=== PATIENT | male | born 1960 | race Caucasian/White ===

== ENCOUNTER 2018-05-16 21:45 | Emergency (ER) | payer MEDICARE, MEDICAID ==
[~2018-05-16 21:45] MED LIST: ALBU8.5H IH; ARI2 PO; ATOM40CA7 PO; AZIT-18 PO; CEFD300C35 PO; CIPR-344 PO; CLIN-75 PO; CLIN300C99 PO; CLON0.5T66 PO; CLOT15CR62 TP; CYCL10TA29 PO; DIVA500T98 PO; DOCU-416 PO; FENO160T11 PO; FOLI-68 PO; HYDR-4309 PO; INSU100C12 SQ; INSU100I30 SQ; INSU100V24 SQ; INSU100V28 SQ; INSU300I SQ; LACT1CAP6 PO; LISI-362 PO; LOR5/325 PO; METF500T4 PO; METH2.5T43 PO; METH2.5T63 PO; METH4TAB66 PO; METO5SOL18 PO; MONT10TA PO; OLAN15TA19 PO; OLAN2.5T3 PO; ONDA4TAB PO; ONDA4TAB97 PO; OXYC-865 PO; PER PO; PRED-1 PO; PRED20TA6 PO; ROSU20TA23 PO; SAL50R INH; SULF-198 PO; TAMS0.4C25 PO; TOPI200T82 PO; [UNRECOGNIZED DRUG - CODE] PO
--- NOTE | 2018-05-16 21:52 | ER Report ---
History and Physical Time Seen By MD: 21:48 HPI/ROS CHIEF COMPLAINT: fell off a chair; hurt shoulder HISTORY OF PRESENT ILLNESS: PT states that he is working on his dissertation and went to get the paper off the printer to read it. sat in a chair and it fell backwards. Hit his head. no loc. Pt c/o of pain in left shoulder and headache. Pt states it occurred at 7pm but was trying to get a ride to come here. when unable to find a neighbor to take him pt drove himself. pt denies chest pain or sob. no abd pain. Pt denies n/v. Pt denies numbness to extremities. Pt states he is unable to lift his shoulder, L, secondary to pain. no pain at elbow. 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 REVIEW OF SYSTEMS: Constitutional: No fever, no chills. Eyes: No discharge. ENT: No sore throat. Cardiovascular: No chest pain, no palpitations. Respiratory: No cough, no shortness of breath. Gastrointestinal: No abdominal pain, no vomiting. Genitourinary: No hematuria. Musculoskeletal: No back pain, +l shoulder Skin: No rashes. Neurological: + headache. Allergies: Coded Allergies: Penicillins (Verified Allergy, Unknown, 05/16/18) aspirin (Verified Allergy, Unknown, 05/16/18) Home Meds Active Scripts Prednisone (PREDNISONE) 20 Mg Tablet, 20 MG PO BID, #8 TAB Prov:JACKELINE ROGERS 07/16/17 Ondansetron (ZOFRAN ODT) 4 Mg Tab.rapdis, 4 MG PO Q6H Y for NAUSEA/VOMITING, # 20 TAB 0 Refills Prov:SOHA BRAXTON MD 09/12/16 Reported Medications Insulin Lispro 100 Un/Ml Vial (HUMALOG 100 U/ML VIAL) 100 Unit/1 Ml Vial, SQ DIRECTED, VIAL 08/29/16 Methotrexate Sodium (METHOTREXATE) 2.5 Mg Tablet, 1 TAB PO WEEKLY, #32 08/29/16 Insulin Glargine,Hum.rec.anlog ([place] Solostar) 300 Unit/1 Ml Insuln.pen, 1 UNIT SQ DIRECTED, #12 08/29/16 Tamsulosin Hcl (FLOMAX) 0.4 Mg Cap.er.24h, 0.4 MG PO QDAY, #20 TAKE WITH FOOD. 10/16/13 Lactobacillus Combination No.4 (PROBIOTIC) 1 Each Capsule, 1 EACH PO BID, CAPSULE 10/13/13 Metoclopramide Hcl (METOCLOPRAMIDE HCL) 5 Mg/5 Ml Solution, 5 MG PO QID PRN 10/13/13 Albuterol Sulfate 90 Mcg/Act (PROAIR HFA 90 MCG/ACT) 8.5 Gm Hfa.aer.ad, 2 PUFF IH Q4-6H PRN 10/13/13 Montelukast Sodium (SINGULAIR) 10 Mg Tablet, 1 TAB PO QDAY TAKE ONE TABLET BY MOUTH EVERY DAY 10/13/13 Aripiprazole (ABILIFY) 2 Mg Tablet, 2 MG PO QDAY, TAB 10/13/13 Folic Acid (FOLIC ACID) 1 Mg Tablet, 1 MG PO DAILY 07/18/13 Metformin Hcl (METFORMIN HCL ER) 500 Mg Tab.er.24, 2 TAB PO BID TAKE TWO TABLETS BY MOUTH TWICE DAILY WITH FOOD 07/18/13 Fenofibrate (FENOFIBRATE) 160 Mg Tablet, 160 MG PO QDAY 07/18/13 Clonazepam (KLONOPIN) 0.5 Mg Tablet, 0.5 MG PO BID 07/18/13 Topiramate (TOPAMAX) 200 Mg Tablet, 200 MG PO BID 07/18/13 Rosuvastatin Calcium (CRESTOR) 20 Mg Tablet, 20 MG PO HS 07/18/13 Olanzapine (OLANZAPINE) 2.5 Mg Tablet, 2.5 MG PO HS 07/18/13 Lisinopril (LISINOPRIL) 10 Mg Tablet, 10 MG PO QDAY 07/18/13 Atomoxetine Hcl (STRATTERA) 40 Mg Capsule, 40 MG PO DAILY 07/18/13 Discontinued Reported Medications Erythromycin Base (ERYTHROMYCIN) 250 Mg Capsule.dr, 250 MG PO QID 10/13/13 Discontinued Scripts Azithromycin 250 Mg Tab (AZITHROMYCIN 250 MG TAB) 250 Mg Tablet, 1 TAB PO QDAY, #4 TAB Take 2 tabs today and then 1 tab a day until gone. Prov:JACKELINE ROGERS BARREL DEDENTING MACHINE OPERATOR 07/16/17 Clotrimazole/Betamethasone Dip (LOTRISONE CREAM) 15 Gm Cream..g., 0 TP BID for 10 Days, TUBE Prov:EMERSON MISHRA MD 03/20/17 Past Medical/Surgical History Patient has a past medical history of migraines, murmur, heart palpitations, angina, hypertension, hyperlipidemia, asthma, pneumonia, gastroparesis, kidney stones, fracture right hand, type 2 diabetes, depression, anxiety, panic disorder, ADHD, bipolar. Patient has a surgical history of cataract surgery, hand surgery, leg surgery, lithotripsy. Reviewed Nurses Notes: Yes Old Medical Records Reviewed: Yes Hx Smoking: Yes Smoking Status: Former Smoker Exposure to Second Hand Smoke?: No Hx Substance Use Disorder: No Hx Alcohol Use: Yes (had one screwdriver tonight at 5pm) Constitutional Vital Sign - Last 24 Hours 05/16/18 05/16/18 05/16/18 05/16/18 21:49 21:50 22:00 22:29 Temp 98.4 Pulse 129 111 Resp 16 B/P (MAP) 167/105 (125) 167/105 136/77 (96) Pulse Ox 94 94 O2 Delivery Room Air 05/16/18 05/16/18 05/16/18 05/16/18 22:30 22:35 22:50 22:55 Pulse 99 97 98 97 Pulse Ox 93 92 92 95 05/17/18 00:13 B/P (MAP) 142/83 (102) Physical Exam General Appearance: The patient is alert, has no immediate need for airway protection and no signs of toxicity. Eyes: Pupils equal and round no pallor or injection, EOMI ENT: no pharyngeal erythema or exudates, Mucous membranes are moist Respiratory: There are no retractions, lungs are clear to auscultation. Cardiovascular: Regular rate and rhythm. pulses are equal and symmetrical Gastrointestinal: Abdomen is soft and non tender, no masses, bowel sounds normal, no guarding, no rigidity or rebound Neurological: Cranial nerves II-XII grossly intact, no sensory or motor loss Skin: Warm and dry, no rashes, + ecchymosis to left humeral head Musculoskeletal: Neck is supple non tender, no vertebral tenderness all extremities except RUQ are nontender, nonswollen and have full range of motion.; RUE has tenderness at humeral head; no ac tenderness; No pain with supination or pronation at elbow DIFFERENTIAL DIAGNOSIS: After history and physical exam differential diagnosis was considered for dislocated shoulder, humeral head fx, close head injury, cerical sprain, cervical fx Medical Decision Making ED Course/Re-evaluation ED Course 1010pm Pts xray shows humeral head fx; pt placed in shoulder immobilizer. Pt reexamined and continues to be neurovascularly intact after the immoiblizer. 1046pm Awaiting pts ct imaging. PT feeling better with arm in gutter splint and shoudler immobilizer sling. PT drove here and does not have a ride home. Pt would be going home alone. I would like to keep pt in the emergency room for neurochecks and repeat evaluation. PT feels comfortable staying in the emergency room. PT given a blanket. 11:05pm Pt was sleeping. woke him up to review ct images which were stable . PT is comfortable now that he is in sling will continue to watch. 0110 Pt asking to go home. Pts neuro exam is stable. Pt states that he does have some "throbbing" in his shoulder but denies numbness. PT is neurovascularly intact. PT is familiar with [facility] due to a prior hand injury. States he will call their office later today. Decision to Disposition Date: May 17, 2018 Decision to Disposition Time: 01:11 Depart Departure Latest Vital Signs Vital Signs Date Time Temp Pulse Resp B/P (MAP) Pulse Ox O2 Delivery O2 Flow Rate FiO2 05/17/18 00:13 142/83 (102) 05/16/18 22:55 97 95 05/16/18 21:50 98.4 16 Room Air Impression: Primary Impression: Proximal humeral fracture Additional Impression: Closed head injury Referrals: LEILANI VARGAS DO (PCP) [facility] 1 Day Call office this morning to make an appointment to be evaluated for your humeral fracture. New Scripts Oxycodone Hcl/Acetaminophen (OXYCODONE-ACETAMINOPHEN 5-325) 1 Each Tablet 1 EACH PO Q4-6H Y for pain, #15 TAB Prov: JOSÉ MANUEL RUTHERFORD DO 05/17/18 Patient Instructions: Proximal Humerus Fracture (GEN) Additional Instructions: Keep your arm in splint and sling. Call [facility] to let them know that you need to be treated for a proximal humeral fracture of your left shoulder. Ice and rest your arm. Percocet one every 4-6 hours as needed for pain. Return for any concerns. Problem Qualifiers Primary Impression: Proximal humeral fracture Encounter type: initial encounter Fracture type: closed Fracture morphology : other fracture Fracture alignment: displaced Laterality: left Qualified Codes: S42.292A - Other displaced fracture of upper end of left humerus, initial encounter for closed fracture Additional Impression: Closed head injury Encounter type: initial encounter Qualified Codes: S09.90XA - Unspecified injury of head, initial encounter JOSÉ MANUEL RUTHERFORD DO May 16, 2018 21:52
--- NOTE | 2018-05-16 22:31 | RADIOLOGY IMAGING REPORT ---
FACILITY: [facility] PATIENT NAME: Venancio Walton : 1960 MR: [id number] V: [id number] EXAM DATE: ORDERING PHYSICIAN: JOSÉ MANUEL RUTHERFORD TECHNOLOGIST: Location: [facility] Patient: Venancio Walton : 1960 Visit/Account:[id number] Date of Sevice: 05/16/2018 SHOULDER MIN 2 VIEWS LEFT Indication: Left shoulder pain after fall. Comparison: Unavailable Findings: There is a comminuted fracture of the proximal humerus with mild distraction at the fracture site. Th is appears to be just below the femoral neck into the proximal diaphysis. No other discrete fracture. No dislocation. No significant degenerative changes. No bony lesions. Soft tissues unremarkable. IMPRESSION: 1. Comminuted fracture of the proximal left humerus. Report Dictated By: Mark Hernandez at 05/16/2018 10:26 PM Report E-Signed By: Mark Hernandez at 05/16/2018 10:27 PM WSN:[id number]
--- NOTE | 2018-05-16 22:59 | RADIOLOGY IMAGING REPORT ---
FACILITY: [facility] [place] PATIENT NAME: Venancio Walton : 1960 MR: [id number] V: [id number] EXAM DATE: ORDERING PHYSICIAN: JOSÉ MANUEL RUTHERFORD TECHNOLOGIST: Location: [facility] [place] Patient: Venancio Walton : 1960 Visit/Account:[id number] Date of Sevice: 05/16/2018 CT Head without contrast and CT Cervical spine: Indication: Fall. Comparison: 09/12/2016. Technique: CT head: Axial CT images were obtained through the brain from the skull base to the verte x without administration of IV contrast. Reformatted coronal and sagittal images were also obtained. Technique: CT cervical spine: Axial CT imaging of the cervical spine was performed. 2-D sagittal and coronal CT reformats were also obtained. One of the following dose optimization techniques was utilized in the performance of this exam: Autom ated exposure control; adjustment of the mA and/or kV according to the patient's size; or use of an i terative reconstruction technique. Specific details can be referenced in the facility's radiology C T exam operational policy. FINDINGS: CT head: No intracranial bleed, midline shift, mass effect, extra-axial fluid collection or hydrocephalus. No abnormal density. Esquivel/white matter differentiation appears normal. Bony structures show no fractures or lesions. Rightward deviation nasal septum. Sinuses and mastoids visualized are clear. CT cervical spine: The vertebral bodies are aligned. Mild reverse curvature could be due to positioning. No fracture or facet dislocation. No bony lesions. There is moderate degenerative changes C5-C6 including disc space narrowing, endplate changes, vacuum disc phenomena, osteophytes and facet arthropathy. No bony canal stenosis. Neural foramina narrowing is present. No other significant degenerative changes. Endplates are maintained. No obvious disc herniation. Prevertebral soft tissues and surrounding soft tissues a re unremarkable. Lung apices are clear. IMPRESSION: 1. No acute intracranial abnormality. 2. No acute osseous or acute alignment abnormality of the cervical spine. Degenerative changes. Report Dictated By: Mark Hernandez at 05/16/2018 10:46 PM Report E-Signed By: Mark Hernandez at 05/16/2018 10:55 PM WSN:[id number]
--- NOTE | 2018-05-16 23:00 | RADIOLOGY IMAGING REPORT ---
FACILITY: [facility] [place] PATIENT NAME: Venancio Walton : 1960 MR: [id number] V: [id number] EXAM DATE: ORDERING PHYSICIAN: JOSÉ MANUEL RUTHERFORD TECHNOLOGIST: [place] [facility] [place]: Venancio Walton : 1960 Visit/Account:[id number] Date of Sevice: 05/16/2018 CT Head without contrast and CT Cervical spine: Indication: Fall. Comparison: 09/12/2016. Technique: CT head: Axial CT images were obtained through the brain from the skull base to the verte x without administration of IV contrast. Reformatted coronal and sagittal images were also obtained. Technique: CT cervical spine: Axial CT imaging of the cervical spine was performed. 2-D sagittal and coronal CT reformats were also obtained. One of the following dose optimization techniques was utilized in the performance of this exam: Autom ated exposure control; adjustment of the mA and/or kV according to the patient's size; or use of an i terative reconstruction technique. Specific details can be referenced in the facility's radiology C T exam operational policy. FINDINGS: CT head: No intracranial bleed, midline shift, mass effect, extra-axial fluid collection or hydrocephalus. No abnormal density. Esquivel/white matter differentiation appears normal. Bony structures show no fractures or lesions. Rightward deviation nasal septum. Sinuses and mastoids visualized are clear. CT cervical spine: The vertebral bodies are aligned. Mild reverse curvature could be due to positioning. No fracture or facet dislocation. No bony lesions. There is moderate degenerative changes C5-C6 including disc space narrowing, endplate changes, vacuum disc phenomena, osteophytes and facet arthropathy. No bony canal stenosis. Neural foramina narrowing is present. No other significant degenerative changes. Endplates are maintained. No obvious disc herniation. Prevertebral soft tissues and surrounding soft tissues a re unremarkable. Lung apices are clear. IMPRESSION: 1. No acute intracranial abnormality. 2. No acute osseous or acute alignment abnormality of the cervical spine. Degenerative changes. Report Dictated By: Mark Hernandez at 05/16/2018 10:46 PM Report E-Signed By: Mark Hernandez at 05/16/2018 10:55 PM WSN:[id number]
[2018-05-17 00:13] VITALS: BP 142/83
[2018-05-17] MEDS ORDERED: OXYC-373 PO (01:13)
[2018-05-17] MEDS ORDERED: oxyCODONE/ACETAMIN 5/325MG TH 2 TAB/BOTTLE PO ONE (01:15)
== END 2018-05-17 01:32 | disposition home or self-care (01) ==
LOC: ER 22:11
DX: S42.292A Other displaced fracture of upper end of left humerus, initial encounter for closed fracture (principal); S09.90XA Unspecified injury of head, initial encounter
CPT/HCPCS: 70450; 72125; 73030; 99284; L3982

== ENCOUNTER 2018-05-20 22:18 | Emergency (ER) | payer MEDICARE, MEDICAID ==
[~2018-05-20 22:18] MED LIST changes: +OXYC-373 PO
[2018-05-20 22:28] VITALS: BP 142/89
--- NOTE | 2018-05-20 22:31 | ER Report ---
History and Physical Time Seen By MD: 22:30 HPI/ROS CHIEF COMPLAINT: Proximal left humerus fracture, shoulder pain HISTORY OF PRESENT ILLNESS: Patient is a 58-year-old male here with complaints of left upper extremity pain, left shoulder pain after fracturing his left proximal humerus on 05/17. Patient was placed in a sling at that time and followed up with [facility].. Patient reports persistent pain throughout course and ran out of this pain medications at home. Patient denies paresthesias, worsening pain, fevers, chills, recurrent injury. REVIEW OF SYSTEMS: Constitutional: No fever, no chills. Musculoskeletal: No back pain, + left upper extremity pain, NV exam intact Skin: No rashes. Neurological: No headache. Allergies: Coded Allergies: Penicillins (Verified Allergy, Unknown, 05/16/18) aspirin (Verified Allergy, Unknown, 05/16/18) Home Meds Active Scripts Naproxen Sodium (ALEVE) 220 Mg Capsule, 440 MG PO TID, #30 CAPSULE Prov:JOSSELIN KESSLER DO 05/20/18 Oxycodone Hcl/Acetaminophen (PERCOCET 5-325 MG TABLET) 1 Each Tablet, 1 EACH PO Q4H Y for PAIN, #12 TAB 0 Refills Prov:JOSSELIN KESSLER DO 05/20/18 Prednisone (PREDNISONE) 20 Mg Tablet, 20 MG PO BID, #8 TAB Prov:JACKELINE ROGERS 07/16/17 Ondansetron (ZOFRAN ODT) 4 Mg Tab.rapdis, 4 MG PO Q6H Y for NAUSEA/VOMITING, # 20 TAB 0 Refills Prov:SOHA BRAXTON MD 09/12/16 Reported Medications Insulin Lispro 100 Un/Ml Vial (HUMALOG 100 U/ML VIAL) 100 Unit/1 Ml Vial, SQ DIRECTED, VIAL 08/29/16 Methotrexate Sodium (METHOTREXATE) 2.5 Mg Tablet, 1 TAB PO WEEKLY, #32 08/29/16 Insulin Glargine,Hum.rec.anlog ([place] Solostar) 300 Unit/1 Ml Insuln.pen, 1 UNIT SQ DIRECTED, #12 08/29/16 Tamsulosin Hcl (FLOMAX) 0.4 Mg Cap.er.24h, 0.4 MG PO QDAY, #20 TAKE WITH FOOD. 10/16/13 Lactobacillus Combination No.4 (PROBIOTIC) 1 Each Capsule, 1 EACH PO BID, CAPSULE 10/13/13 Metoclopramide Hcl (METOCLOPRAMIDE HCL) 5 Mg/5 Ml Solution, 5 MG PO QID PRN 10/13/13 Albuterol Sulfate 90 Mcg/Act (PROAIR HFA 90 MCG/ACT) 8.5 Gm Hfa.aer.ad, 2 PUFF IH Q4-6H PRN 10/13/13 Montelukast Sodium (SINGULAIR) 10 Mg Tablet, 1 TAB PO QDAY TAKE ONE TABLET BY MOUTH EVERY DAY 10/13/13 Aripiprazole (ABILIFY) 2 Mg Tablet, 2 MG PO QDAY, TAB 10/13/13 Folic Acid (FOLIC ACID) 1 Mg Tablet, 1 MG PO DAILY 07/18/13 Metformin Hcl (METFORMIN HCL ER) 500 Mg Tab.er.24, 2 TAB PO BID TAKE TWO TABLETS BY MOUTH TWICE DAILY WITH FOOD 07/18/13 Fenofibrate (FENOFIBRATE) 160 Mg Tablet, 160 MG PO QDAY 07/18/13 Clonazepam (KLONOPIN) 0.5 Mg Tablet, 0.5 MG PO BID 07/18/13 Topiramate (TOPAMAX) 200 Mg Tablet, 200 MG PO BID 07/18/13 Rosuvastatin Calcium (CRESTOR) 20 Mg Tablet, 20 MG PO HS 07/18/13 Olanzapine (OLANZAPINE) 2.5 Mg Tablet, 2.5 MG PO HS 07/18/13 Lisinopril (LISINOPRIL) 10 Mg Tablet, 10 MG PO QDAY 07/18/13 Atomoxetine Hcl (STRATTERA) 40 Mg Capsule, 40 MG PO DAILY 07/18/13 Discontinued Reported Medications Erythromycin Base (ERYTHROMYCIN) 250 Mg Capsule.dr, 250 MG PO QID 10/13/13 Discontinued Scripts Oxycodone Hcl/Acetaminophen (OXYCODONE-ACETAMINOPHEN 5-325) 1 Each Tablet, 1 EACH PO Q4-6H Y for pain, #15 TAB Prov:JOSÉ MANUEL RUTHERFORD DO 05/17/18 Azithromycin 250 Mg Tab (AZITHROMYCIN 250 MG TAB) 250 Mg Tablet, 1 TAB PO QDAY, #4 TAB Take 2 tabs today and then 1 tab a day until gone. Prov:JACKLEINE ROGERS SENIOR CARE PROVIDER 07/16/17 Clotrimazole/Betamethasone Dip (LOTRISONE CREAM) 15 Gm Cream..g., 0 TP BID for 10 Days, TUBE Prov:EMERSON MISHRA MD 03/20/17 Hx Smoking: Yes Smoking Status: Former Smoker Exposure to Second Hand Smoke?: No Hx Substance Use Disorder: No Hx Alcohol Use: Yes (had one screwdriver tonight at 5pm) Constitutional Vital Sign - Last 24 Hours 05/20/18 22:28 Temp 98.1 Pulse 122 Resp 16 B/P (MAP) 142/89 Pulse Ox 96 O2 Delivery Room Air Physical Exam General Appearance: The patient is alert, has no immediate need for airway protection and no signs of toxicity. NAD Neurological: NV exam intact Skin: Warm and dry, no rashes. Musculoskeletal: Neck is supple non tender. + Left upper extremity in sling DIFFERENTIAL DIAGNOSIS: After history and physical exam differential diagnosis was considered for humerus fracture, ongoing pain, neurovascular compromise Medical Decision Making ED Course/Re-evaluation ED Course Patient is a 58-year-old male here with complaints of left upper extremity pain after being diagnosed with a left proximal humerus fracture on May 17. Patient had follow-up with [facility] and reports having ongoing significant pain and having run out of his pain medications. I explained to the patient that he would need to follow-up with his family doctor for ongoing pain control and he agreed to follow up with his family doctor as soon as possible. He gave the patient Percocet to take home as well as a prescription for several days of analgesia and advised to take naproxen for ongoing pain control. Patient was given a new sling because he complained that his sling did not fit appropriately. Patient was neurovascularly intact prior to discharge. Decision to Disposition Date: May 20, 2018 Decision to Disposition Time: 22:30 Depart Departure Latest Vital Signs Vital Signs Date Time Temp Pulse Resp B/P (MAP) Pulse Ox O2 Delivery O2 Flow Rate FiO2 05/20/18 22:28 98.1 122 16 142/89 96 Room Air Impression: Primary Impression: Proximal humeral fracture Condition: Improved Disposition: HOME OR SELF-CARE Referrals: LEILANI VARGAS DO (PCP) New Scripts Naproxen Sodium (ALEVE) 220 Mg Capsule 440 MG PO TID, #30 CAPSULE Prov: JOSSELIN KESSLER DO 05/20/18 Oxycodone Hcl/Acetaminophen (PERCOCET 5-325 MG TABLET) 1 Each Tablet 1 EACH PO Q4H Y for PAIN, #12 TAB 0 Refills Prov: JOSSELIN KESSLER DO 05/20/18 Patient Instructions: Oxycodone/Acetaminophen (By mouth), Proximal Humerus Fracture (ED) Additional Instructions: Please follow-up with her family doctor for ongoing pain control. You may take 1 tablet of Percocet every 6-8 hours as needed for breakthrough pain. Please keep your sling in place. Please take 2 tablets of naproxen for pain control every 8 hours. JOSSELIN KESSLER DO May 20, 2018 22:31
[2018-05-20] MEDS ORDERED: NAPR220C12 PO (22:45)
[2018-05-20] MEDS ORDERED: OXYC-865 PO (22:45)
[2018-05-20] MEDS ORDERED: oxyCODONE/ACETAMIN 5/325MG TH 2 TAB/BOTTLE PO ONE (22:45)
== END 2018-05-20 22:45 | disposition home or self-care (01) ==
LOC: ER 22:28
DX: S42.202D Unspecified fracture of upper end of left humerus, subsequent encounter for fracture with routine healing (principal); X58.XXXD Exposure to other specified factors, subsequent encounter
CPT/HCPCS: 99283; A4565

== ENCOUNTER 2018-08-03 15:29 | Emergency (ER) | payer MEDICARE, MEDICAID ==
[~2018-08-03 15:29] MED LIST changes: -HYDR-4309 PO; +HYDR-653 PO; +NAPR220C12 PO
--- NOTE | 2018-08-03 15:52 | ER Report ---
History and Physical Time Seen By MD: 15:51 Hx. of Stated Complaint: PT REPORTS THAT HE HAS BEEN DIZZY SINCE LAST NIGHT. THINKS IT MAY BE HIS BLOOD SUGAR ALTHOUGH HIS BLOOD SUGAR AT HOME WAS 159 RIGHT BEFORE COMING TO HOSPTAL. STATES THAT HE HAD DIARRHEA YESTERDAY THAT HAS RESOLVED. HPI/ROS CHIEF COMPLAINT: Headache and dizziness HISTORY OF PRESENT ILLNESS: This is a 58-year-old male presents to the emergency department for a headache and dizziness. Patient states that last night he developed some dizziness, went back to bed continues to have dizziness today. Patient also states that he has a frontal headache. Does have a history of migraines however this is not a typical migraine type of headache. Not photo phobic. Has had about 5 episodes of diarrhea since yesterday, no blood in the diarrhea. No nausea or vomiting. Patient does have a history of hypertension, current blood pressure is 177/109. Patient states he does see his primary care provider every other week for diabetes and blood pressure problems. No chest pain or shortness of breath. No fevers or chills. No rashes. REVIEW OF SYSTEMS: Constitutional: No fever, no chills. Eyes: No discharge. ENT: No sore throat. Cardiovascular: No chest pain, no palpitations. Respiratory: No cough, no shortness of breath. Gastrointestinal: As above. Genitourinary: No hematuria. Musculoskeletal: No back pain. Skin: No rashes. Neurological: As above. Allergies: Coded Allergies: Penicillins (Verified Allergy, Unknown, 08/03/18) aspirin (Verified Allergy, Unknown, 08/03/18) Home Meds Active Scripts Meclizine Hcl (MECLIZINE HCL) 25 Mg Tablet, 25 MG PO BID, #12 TAB 0 Refills Prov:JARRET PÉREZ DIRECTOR OF PUBLICATIONS-BC 08/03/18 Naproxen Sodium (ALEVE) 220 Mg Capsule, 440 MG PO TID, #30 CAPSULE Prov:JOSSELIN KESSLER DO 05/20/18 Ondansetron (ZOFRAN ODT) 4 Mg Tab.rapdis, 4 MG PO Q6H PRN for NAUSEA/VOMITING, #20 TAB 0 Refills Prov:SOHA BRAXTON MD 09/12/16 Reported Medications Insulin Lispro 100 Un/Ml Vial (HUMALOG 100 U/ML VIAL) 100 Unit/1 Ml Vial, SQ DIRECTED, VIAL 08/29/16 Methotrexate Sodium (METHOTREXATE) 2.5 Mg Tablet, 1 TAB PO WEEKLY, #32 08/29/16 Insulin Glargine,Hum.rec.anlog ([place]ma Solostar) 300 Unit/1 Ml Insuln.pen, 1 UNIT SQ DIRECTED, #12 08/29/16 Tamsulosin Hcl (FLOMAX) 0.4 Mg Cap.er.24h, 0.4 MG PO QDAY, #20 TAKE WITH FOOD. 10/16/13 Lactobacillus Combination No.4 (PROBIOTIC) 1 Each Capsule, 1 EACH PO BID, CAPSULE 10/13/13 Metoclopramide Hcl (METOCLOPRAMIDE HCL) 5 Mg/5 Ml Solution, 5 MG PO QID PRN 10/13/13 Albuterol Sulfate 90 Mcg/Act (PROAIR HFA 90 MCG/ACT) 8.5 Gm Hfa.aer.ad, 2 PUFF IH Q4-6H PRN 10/13/13 Montelukast Sodium (SINGULAIR) 10 Mg Tablet, 1 TAB PO QDAY TAKE ONE TABLET BY MOUTH EVERY DAY 10/13/13 Aripiprazole (ABILIFY) 2 Mg Tablet, 2 MG PO QDAY, TAB 10/13/13 Folic Acid (FOLIC ACID) 1 Mg Tablet, 1 MG PO DAILY 07/18/13 Metformin Hcl (METFORMIN HCL ER) 500 Mg Tab.er.24, 2 TAB PO BID TAKE TWO TABLETS BY MOUTH TWICE DAILY WITH FOOD 07/18/13 Fenofibrate (FENOFIBRATE) 160 Mg Tablet, 160 MG PO QDAY 07/18/13 Clonazepam (KLONOPIN) 0.5 Mg Tablet, 0.5 MG PO BID 07/18/13 Topiramate (TOPAMAX) 200 Mg Tablet, 200 MG PO BID 07/18/13 Rosuvastatin Calcium (CRESTOR) 20 Mg Tablet, 20 MG PO HS 07/18/13 Olanzapine (OLANZAPINE) 2.5 Mg Tablet, 2.5 MG PO HS 07/18/13 Lisinopril (LISINOPRIL) 10 Mg Tablet, 10 MG PO QDAY 07/18/13 Atomoxetine Hcl (STRATTERA) 40 Mg Capsule, 40 MG PO DAILY 07/18/13 Discontinued Scripts Oxycodone Hcl/Acetaminophen (PERCOCET 5-325 MG TABLET) 1 Each Tablet, 1 EACH PO Q4H PRN for PAIN, #12 TAB 0 Refills Prov:JOSSELIN KESSLER DO 05/20/18 Prednisone (PREDNISONE) 20 Mg Tablet, 20 MG PO BID, #8 TAB Prov:JACKELINE ROGERS DIRECTOR OF PUBLICATIONS 07/16/17 Past Medical/Surgical History Patient has a past medical and surgical history of cataract removal, headaches, migraines, palpitations, murmur, angina, hypercholesterolemia, hypertension, abdominal allergies, asthma, pneumonia, gastroparesis, kidney stones, lithotripsy, had a leg surgery, right hand fracture, hypothyroidism, type II diabetes, depression, anxiety, panic disorder, ADHD, bipolar, smokes. Reviewed Nurses Notes: Yes Hx Smoking: Yes Smoking Status: Former Smoker Exposure to Second Hand Smoke?: No Hx Substance Use Disorder: No Hx Alcohol Use: Yes (had one screwdriver tonight at 5pm) Constitutional Vital Sign - Last 24 Hours 08/03/18 08/03/18 08/03/18 08/03/18 15:41 15:44 15:45 15:57 Temp 97.5 Pulse 83 88 Resp 14 B/P (MAP) 165/110 (128) 173/114 (133) Pulse Ox 95 95 O2 Delivery Room Air 08/03/18 08/03/18 08/03/18 08/03/18 16:00 16:15 16:45 16:57 Pulse 95 87 91 B/P (MAP) 177/109 (131) 174/109 (130) Pulse Ox 95 97 93 08/03/18 08/03/18 08/03/18 08/03/18 17:00 17:15 17:30 18:09 Pulse 91 75 76 Resp 19 16 B/P (MAP) 165/109 (127) 138/90 (106) 134/85 (101) Pulse Ox 94 92 92 08/03/18 08/03/18 08/03/18 08/03/18 18:15 18:30 18:45 19:00 Pulse 70 72 81 80 Resp 19 17 13 20 B/P (MAP) 146/98 (114) 161/104 (123) Pulse Ox 91 92 92 94 08/03/18 08/03/18 08/03/18 19:15 19:19 19:30 Pulse 82 80 Resp 20 23 B/P (MAP) 166/101 (122) 178/111 (133) Pulse Ox 92 94 Physical Exam General Appearance: The patient is alert, has no immediate need for airway protection and no signs of toxicity. Eyes: Pupils equal and round no pallor or injection. EOMs intact. 3-4 beats of right lateral nystagmus, 2-3 beats of left lateral nystagmus, no vertical nystagmus. ENT, Mouth: Mucous membranes are dry. Respiratory: There are no retractions, lungs are clear to auscultation. Cardiovascular: Regular rate and rhythm, no murmurs, clicks or rubs. Gastrointestinal: Abdomen is soft and non tender, no masses, bowel sounds no rmal. Neurological: Alert and oriented 4. Moving all extremities. Following all commands. No focal neuro deficits. Skin: Warm and dry, no rashes. Musculoskeletal: Neck is supple non tender. Extremities are nontender, nonswollen and have full range of motion. DIFFERENTIAL DIAGNOSIS: After history and physical exam differential diagnosis was considered for dizziness including but not limited to peripheral and central causes of vertigo, orthostatic causes including dehydration, and blood loss. Medical Decision Making Data Points Result Diagram: 08/03/18 1558 08/03/18 1558 Laboratory Hematology Test 08/03/18 15:58 08/03/18 18:04 Red Blood Count 5.42 M/uL (4.00-5.60) Mean Corpuscular Volume 87.0 fL (80.0-96.0) Mean Corpuscular Hemoglobin 31.0 pg (26.0-33.0) Mean Corpuscular Hemoglobin Concent 35.6 g/dL (32.0-36.0) Red Cell Distribution Width 13.0 % (11.5-14.5) Mean Platelet Volume 9.4 fL (7.2-11.1) Neutrophils (%) (Auto) 60.9 % (39.4-72.5) Lymphocytes (%) (Auto) 27.1 % (17.6-49.6) Monocytes (%) (Auto) 7.6 % (4.1-12.4) Eosinophils (%) (Auto) 3.8 % (0.4-6.7) Basophils (%) (Auto) 0.6 % (0.3-1.4) Nucleated RBC Relative Count (auto) 0.1 /100WBC Neutrophils # (Auto) 4.9 K/uL (2.0-7.4) Lymphocytes # (Auto) 2.2 K/uL (1.3-3.6) Monocytes # (Auto) 0.6 K/uL (0.3-1.0) Eosinophils # (Auto) 0.3 K/uL (0.0-0.5) Basophils # (Auto) 0.1 K/uL (0.0-0.1) Nucleated RBC Absolute Count (auto) 0.01 K/uL Sodium Level 133 mmol/L (137-145) Potassium Level 3.6 mmol/L (3.5-5.0) Chloride Level 98 mmol/L (98-107) Carbon Dioxide Level 28 mmol/L (22-30) Blood Urea Nitrogen 14 mg/dl (9-21) Creatinine 1.00 mg/dl (0.66-1.25) Glomerular Filtration Rate Calc > 60.0 Random Glucose 243 mg/dl (75-110) Calcium Level 8.7 mg/dl (8.4-10.2) Total Bilirubin 0.3 mg/dl (0.2-1.3) Aspartate Amino Transf (AST/SGOT) 17 U/L (0-35) Alanine Aminotransferase (ALT/SGPT) 29 U/L (0-56) Alkaline Phosphatase 124 U/L (0-126) Total Protein 6.0 g/dl (6.3-8.2) Albumin 3.3 g/dl (3.5-5.0) Urine Color Straw Urine Clarity Clear Urine pH 7.0 pH (4.8-9.5) Urine Specific [place] 1.006 Urine Protein 100 mg/dL (NEGATIVE) Urine Glucose (UA) 50 mg/dL (NEGATIVE) Urine Ketones Negative mg/dL (NEGATIVE) Urine Blood Negative (NEGATIVE) Urine Nitrite Negative (NEGATIVE) Urine Bilirubin Negative (NEGATIVE) Urine Urobilinogen Negative mg/dL (0.2-1.9) Urine Leukocyte Esterase Negative (NEGATIVE) Urine RBC <1 /HPF (0-2/HPF) Urine WBC 2 /HPF (0-5/HPF) Urine Squamous Epithelial Cells None /LPF (</=FEW) Urine Bacteria Negative /HPF (NONE-FEW) Urine Mucus None /HPF (NONE-FEW) Chemistry Test 08/03/18 15:58 08/03/18 18:04 White Blood Count 8.1 k/uL (4.5-11.0) Red Blood Count 5.42 M/uL (4.00-5.60) Hemoglobin 16.8 g/dL (14.0-18.0) Hematocrit 47.2 % (42.0-52.0) Mean Corpuscular Volume 87.0 fL (80.0-96.0) Mean Corpuscular Hemoglobin 31.0 pg (26.0-33.0) Mean Corpuscular Hemoglobin Concent 35.6 g/dL (32.0-36.0) Red Cell Distribution Width 13.0 % (11.5-14.5) Platelet Count 243 K/uL (150-450) Mean Platelet Volume 9.4 fL (7.2-11.1) Neutrophils (%) (Auto) 60.9 % (39.4-72.5) Lymphocytes (%) (Auto) 27.1 % (17.6-49.6) Monocytes (%) (Auto) 7.6 % (4.1-12.4) Eosinophils (%) (Auto) 3.8 % (0.4-6.7) Basophils (%) (Auto) 0.6 % (0.3-1.4) Nucleated RBC Relative Count (auto) 0.1 /100WBC Neutrophils # (Auto) 4.9 K/uL (2.0-7.4) Lymphocytes # (Auto) 2.2 K/uL (1.3-3.6) Monocytes # (Auto) 0.6 K/uL (0.3-1.0) Eosinophils # (Auto) 0.3 K/uL (0.0-0.5) Basophils # (Auto) 0.1 K/uL (0.0-0.1) Nucleated RBC Absolute Count (auto) 0.01 K/uL Glomerular Filtration Rate Calc > 60.0 Calcium Level 8.7 mg/dl (8.4-10.2) Total Bilirubin 0.3 mg/dl (0.2-1.3) Aspartate Amino Transf (AST/SGOT) 17 U/L (0-35) Alanine Aminotransferase (ALT/SGPT) 29 U/L (0-56) Alkaline Phosphatase 124 U/L (0-126) Total Protein 6.0 g/dl (6.3-8.2) Albumin 3.3 g/dl (3.5-5.0) Urine Color Straw Urine Clarity Clear Urine pH 7.0 pH (4.8-9.5) Urine Specific [place] 1.006 Urine Protein 100 mg/dL (NEGATIVE) Urine Glucose (UA) 50 mg/dL (NEGATIVE) Urine Ketones Negative mg/dL (NEGATIVE) Urine Blood Negative (NEGATIVE) Urine Nitrite Negative (NEGATIVE) Urine Bilirubin Negative (NEGATIVE) Urine Urobilinogen Negative mg/dL (0.2-1.9) Urine Leukocyte Esterase Negative (NEGATIVE) Urine RBC <1 /HPF (0-2/HPF) Urine WBC 2 /HPF (0-5/HPF) Urine Squamous Epithelial Cells None /LPF (</=FEW) Urine Bacteria Negative /HPF (NONE-FEW) Urine Mucus None /HPF (NONE-FEW) Urinalysis Test 08/03/18 18:04 Urine Color Straw Urine Clarity Clear Urine pH 7.0 pH (4.8-9.5) Urine Specific [place] 1.006 Urine Protein 100 mg/dL (NEGATIVE) Urine Glucose (UA) 50 mg/dL (NEGATIVE) Urine Ketones Negative mg/dL (NEGATIVE) Urine Blood Negative (NEGATIVE) Urine Nitrite Negative (NEGATIVE) Urine Bilirubin Negative (NEGATIVE) Urine Urobilinogen Negative mg/dL (0.2-1.9) Urine Leukocyte Esterase Negative (NEGATIVE) Urine RBC <1 /HPF (0-2/HPF) Urine WBC 2 /HPF (0-5/HPF) Urine Squamous Epithelial Cells None /LPF (</=FEW) Urine Bacteria Negative /HPF (NONE-FEW) Urine Mucus None /HPF (NONE-FEW) EKG/Imaging EKG Interpretation 12 lead EKG: Time of EKG 1617. Rhythm: Normal sinus rhythm, ventricular rate 87 BPM. Wayne: normal QRS: normal ST segments: No ST elevation or depression identified. No significant changes from the 09/26/2015 EKG. Imaging Location: [facility] Patient: Venancio Walton : 1960 Visit/Account:[id number] Date of Sevice: 08/03/2018 EXAMINATION: CT head without IV contrast HISTORY: Dizziness and headache. TECHNIQUE: Axial CT images of the head were obtained from the vertex to the skull base without IV contrast, with coronal and sagittal 2D reconstructed images. One of the following dose optimization techniques was utilized in the performance of this exam: Automated exposure control; adjustment of the mA and/or kV according to the patient's size; or use of an iterative reconstruction technique. Specific details can be referenced in the facility's radiology CT exam operational policy. COMPARISON: 05/16/2018. FINDINGS: The intracranial contents are unremarkable. No CT evidence of intracranial hemorrhage, mass lesion, or acute infarct. No midline shift or extra-axial fluid collections. Esquivel-white differentiation is maintained. The calvarium is intact. The visualized paranasal sinuses and mastoid air cells are unopacified. IMPRESSION: Unremarkable noncontrast head CT. Report Dictated By: Alexys Boswell MD at 08/03/2018 4:46 PM Report E-Signed By: Alexys Boswell MD at 08/03/2018 4:51 PM WSN:[id number] ED Course/Re-evaluation Clinical Indication for ER IV: Hydration, IV Access ED Course The patient was admitted to room. A history and physical were obtained. Differential diagnoses were considered. IV was started. A 1 L normal saline bolus was given. A CBC, CMP were obtained. 25 mg by mouth meclizine were given. Lab studies unremarkable with the exception of what sugar of 243. Patient ate just prior to coming to the hospital. A CT of the head was negative for any acute intracranial abnormalities. EKG negative for any acute findings. Patient had significant relief of his vertiginous symptoms with the meclizine and the fluids. Patient's was having increased dizziness with positional changes more specifically when he turned his head to the right. Patient also states that his headache has resolved. Patient was also given 20 mg IV labetalol, his blood pressure is 134/85 at this time. I believe that the dizziness and headache are multifactorial, partly from the hypertension, also from recent cold symptoms and his recent diarrhea, patient has had some upper respiratory infection which could be causing some eustachian tube dysfunction and likely causing some vertigo type sensation. I did instruct the patient follow up with his primary care provider within one week for reevaluation. Return to the ER for any other concerns or worsening symptoms. Patient exposed understanding was discharged amadeo e. Patient had steady gait upon discharge. Decision to Disposition Date: Aug 03, 2018 Decision to Disposition Time: 19:41 Depart Departure Latest Vital Signs Vital Signs Date Time Temp Pulse Resp B/P (MAP) Pulse Ox O2 Delivery O2 Flow Rate FiO2 08/03/18 19:30 80 23 178/111 (133) 94 08/03/18 15:41 97.5 Room Air Impression: Primary Impression: Dizziness Additional Impressions: Diarrhea Headache Hypertension Condition: Improved Disposition: HOME OR SELF-CARE Referrals: SWETHA SALDIVAR DO 1 Week New Scripts Meclizine Hcl (MECLIZINE HCL) 25 Mg Tablet 25 MG PO BID, #12 TAB 0 Refills Prov: JARRET PÉREZ-BC 08/03/18 Patient Instructions: Acute Diarrhea (ED), Acute Headache (ED), Dizziness (ED), Hypertension (ED) Additional Instructions: I believe your dizziness is related to decreased fluid intake, recent cold symptoms and your high blood pressure. Please follow-up with your primary care provider within one week for reevaluation, specifically her blood pressure medication. Continue to monitor your blood sugar regularly. Be sure to drink plenty of fluids. Get plenty of rest. Take the meclizine as needed for dizziness. Return to the emergency department for any concerns or worsening symptoms. Problem Qualifiers Additional Impressions: Diarrhea Diarrhea type: unspecified type Qualified Codes: R19.7 - Diarrhea, unspecified Headache Headache type: unspecified Headache chronicity pattern: acute headache Intractability: not intractable Qualified Codes: R51 - Headache Hypertension Hypertension type: unspecified Qualified Codes: I10 - Essential (primary) hypertension JARRET PÉREZ DIRECTOR OF PUBLICATIONS-BC Aug 03, 2018 15:52
[2018-08-03] MEDS ORDERED: NS(*) 0.9% 1000 ML BAG 1,000 ML IV ONE (16:08)
[2018-08-03] MEDS ORDERED: MECLIZINE HCL 25 MG TAB PO ONE (16:10)
[2018-08-03] MEDS ORDERED: LABETALOL HCL 100 MG/20ML VIAL IVP ONE (16:10)
[2018-08-03 16:27] LABS: PLATELET COUNT, AUTOMATED 243 K/uL (150-450)
--- NOTE | 2018-08-03 16:46 | EKG ---
FACILITY: [facility] PATIENT NAME: NANCI EDWARDS : [id number] MR: [id number] V: [id number] EXAM DATE: ORDERING PHYSICIAN: JARRET PÉREZ TECHNOLOGIST: LUIGI Test Reason : DIZZY Blood Pressure : / mmHG Vent. Rate : 087 BPM Atrial Rate : 087 BPM P-R Int : 140 ms QRS Dur : 084 ms QT Int : 368 ms P-R-T Axes : 051 054 072 degrees QTc Int : 442 ms Normal sinus rhythm Poor R wave progression Abnormal ECG No previous ECGs available Confirmed by VIKI EUBANKS ([id number]) on 08/04/2018 6:42:42 AM Referred By: IRAIS Confirmed By:VIKI EUBANKS
--- NOTE | 2018-08-03 16:54 | RADIOLOGY IMAGING REPORT ---
FACILITY: [facility] PATIENT NAME: Venancio Walton : 1960 MR: [id number] V: [id number] EXAM DATE: ORDERING PHYSICIAN: JARRET PÉREZ TECHNOLOGIST: Location: [facility] [place] Patient: Venancio Walton : 1960 Visit/Account:[id number] Date of Sevice: 08/03/2018 EXAMINATION: CT head without IV contrast HISTORY: Dizziness and headache. TECHNIQUE: Axial CT images of the head were obtained from the vertex to the skull base without IV c ontrast, with coronal and sagittal 2D reconstructed images. One of the following dose optimization techniques was utilized in the performance of this exam: Autom ated exposure control; adjustment of the mA and/or kV according to the patient's size; or use of an i terative reconstruction technique. Specific details can be referenced in the facility's radiology C T exam operational policy. COMPARISON: 05/16/2018. FINDINGS: The intracranial contents are unremarkable. No CT evidence of intracranial hemorrhage, mass lesion, or acute infarct. No midline shift or extra-axial fluid collections. Esquivel-white differentiation is maintained. The calvarium is intact. The visualized paranasal sinuses and mastoid air cells are unopacified. IMPRESSION: Unremarkable noncontrast head CT. Report Dictated By: Alexys Boswell MD at 08/03/2018 4:46 PM Report E-Signed By: Alexys Boswell MD at 08/03/2018 4:51 PM WSN:[id number]
[2018-08-03] MEDS ORDERED: MECL25TA9 PO (17:33)
[2018-08-03 19:30] VITALS: BP 178/111
== END 2018-08-03 19:55 | disposition home or self-care (01) ==
LOC: ER 16:33
DX: R42 Dizziness and giddiness (principal); R19.7 Diarrhea, unspecified; R51 Headache; I10 Essential (primary) hypertension
CPT/HCPCS: 70450; 81001; 85025; 93005; 96361; 96374; 99284; J3490; J7030; J8597; 82040; 82247; 82310; 82374; 82435; 82565; 82947; 84075; 84132; 84155; 84295; 84450; 84460; 84520

== ENCOUNTER 2018-10-13 08:09 | Emergency (ER) | payer MEDICARE, MEDICAID ==
[~2018-10-13 08:09] MED LIST changes: +MECL25TA9 PO
[2018-10-13] MEDS ORDERED: ALBUTEROL 2.5 MG/0.5ML ER ONLY NEB ONE (08:40)
[2018-10-13] MEDS ORDERED: KETOROLAC 30 MG/ML VIAL IVP ONE (09:05)
[2018-10-13] MEDS ORDERED: NS(*) 0.9% 1000 ML BAG 1,000 ML IV ONE (09:05)
[2018-10-13] MEDS ORDERED: guaiFENesin/P-EPHED 1 EA TABCR PO ONE (09:25)
[2018-10-13] MEDS ORDERED: DEXAMETHASONE SOD PHOS 10MG/ML IVP ONE (09:25)
--- NOTE | 2018-10-13 09:45 | RADIOLOGY IMAGING REPORT ---
FACILITY: [facility] [place] PATIENT NAME: Venancio Walton : 1960 MR: [id number] V: [id number] EXAM DATE: ORDERING PHYSICIAN: NATALIA DAVIES TECHNOLOGIST: Location: [facility] [place] Patient: Venancio Walton : 1960 Visit/Account:[id number] Date of Sevice: 10/13/2018 2 VIEWS CHEST INDICATION: Congestion, smoker COMPARISON: X-ray examination chest July 16, 2017 FINDINGS: Heart size within normal limits. Similar central bronchitic changes without new alveolar consolidation, effusion or pneumothorax. No a cute bony finding. IMPRESSION: 1. Stable chronic bronchitic changes which can be seen in the setting of bronchitis or the sequelae o f smoking. No change since prior exam. Report Dictated By: Inocencio Vasquez MD at 10/13/2018 9:39 AM Report E-Signed By: Inocencio Vasquez MD at 10/13/2018 9:40 AM WSN:[id number]
[2018-10-13 10:00] VITALS: BP 136/82
--- NOTE | 2018-10-13 10:17 | ER Report ---
History and Physical Time Seen By MD: 08:30 Hx. of Stated Complaint: patient states that he has chest congestion, light headed, dizzy and just feels bad. patient states that he hasnt taken any OTC medication due to his bipolar disorder. patient also states that he has a diabetic and sugars have been up and down HPI/ROS Otherwise healthy 58-year-old male who presents to the emergency department with cough, congestion, myalgias, and flulike symptoms since . He has had intermittent chest tightness that he says is from coughing. He smokes cigars. H as a history of asthma. No constant chest pain, no syncope. He has tried [id number] medications without relief. No PE risk factors, no nausea vomiting or diarrhea. No hematochezia or hematemesis. Remainder of the 14 system rev: Yes Allergies: Coded Allergies: Penicillins (Verified Allergy, Unknown, 08/03/18) aspirin (Verified Allergy, Unknown, 08/03/18) Home Meds Active Scripts Meclizine Hcl (MECLIZINE HCL) 25 Mg Tablet, 25 MG PO BID, #12 TAB 0 Refills Prov:JARRET PÉREZ [facility]-BC 08/03/18 Naproxen Sodium (ALEVE) 220 Mg Capsule, 440 MG PO TID, #30 CAPSULE Prov:JOSSELIN KESSLER DO 05/20/18 Ondansetron (ZOFRAN ODT) 4 Mg Tab.rapdis, 4 MG PO Q6H PRN for NAUSEA/VOMITING, #20 TAB 0 Refills Prov:SOHA BRAXTON MD 09/12/16 Reported Medications Insulin Lispro 100 Un/Ml Vial (HUMALOG 100 U/ML VIAL) 100 Unit/1 Ml Vial, SQ DIRECTED, VIAL 08/29/16 Methotrexate Sodium (METHOTREXATE) 2.5 Mg Tablet, 1 TAB PO WEEKLY, #32 08/29/16 Insulin Glargine,Hum.rec.anlog (Rebecca Solosteliazar) 300 Unit/1 Ml Insuln.pen, 1 UNIT SQ DIRECTED, #12 08/29/16 Tamsulosin Hcl (FLOMAX) 0.4 Mg Cap.er.24h, 0.4 MG PO QDAY, #20 TAKE WITH FOOD. 10/16/13 Lactobacillus Combination No.4 (PROBIOTIC) 1 Each Capsule, 1 EACH PO BID, CAPSULE 10/13/13 Metoclopramide Hcl (METOCLOPRAMIDE HCL) 5 Mg/5 Ml Solution, 5 MG PO QID PRN 10/13/13 Albuterol Sulfate 90 Mcg/Act (PROAIR HFA 90 MCG/ACT) 8.5 Gm Hfa.aer.ad, 2 PUFF IH Q4-6H PRN 10/13/13 Montelukast Sodium (SINGULAIR) 10 Mg Tablet, 1 TAB PO QDAY TAKE ONE TABLET BY MOUTH EVERY DAY 10/13/13 Aripiprazole (ABILIFY) 2 Mg Tablet, 2 MG PO QDAY, TAB 10/13/13 Folic Acid (FOLIC ACID) 1 Mg Tablet, 1 MG PO DAILY 07/18/13 Metformin Hcl (METFORMIN HCL ER) 500 Mg Tab.er.24, 2 TAB PO BID TAKE TWO TABLETS BY MOUTH TWICE DAILY WITH FOOD 07/18/13 Fenofibrate (FENOFIBRATE) 160 Mg Tablet, 160 MG PO QDAY 07/18/13 Clonazepam (KLONOPIN) 0.5 Mg Tablet, 0.5 MG PO BID 07/18/13 Topiramate (TOPAMAX) 200 Mg Tablet, 200 MG PO BID 07/18/13 Rosuvastatin Calcium (CRESTOR) 20 Mg Tablet, 20 MG PO HS 07/18/13 Olanzapine (OLANZAPINE) 2.5 Mg Tablet, 2.5 MG PO HS 07/18/13 Lisinopril (LISINOPRIL) 10 Mg Tablet, 10 MG PO QDAY 07/18/13 Atomoxetine Hcl (STRATTERA) 40 Mg Capsule, 40 MG PO DAILY 07/18/13 Reviewed Nurses Notes: Yes Old Medical Records Reviewed: Yes Hx Smoking: Yes Smoking Status: Former Smoker Exposure to Second Hand Smoke?: No Hx Substance Use Disorder: No Hx Alcohol Use: Yes Constitutional Vital Sign - Last 24 Hours 10/13/18 10/13/18 10/13/18 10/13/18 08:09 08:13 08:14 08:30 Temp 97.4 Pulse ??? 109 Resp 18 B/P (MAP) 166/105 166/105 (125) 137/79 (98) Pulse Ox 93 O2 Delivery Room Air 10/13/18 10/13/18 10/13/18 10/13/18 08:39 08:50 08:50 08:57 Pulse 105 106 107 Resp 17 17 Pulse Ox 95 93 O2 Delivery Room Air 10/13/18 09:09 Pulse ??? Physical Exam General Appearance: The patient is alert, has no immediate need for airway protection and no current signs of toxicity. Eyes: Pupils equal and round no injection. Respiratory: Chest is non tender, lungs are clear to auscultation. Cardiac: regular rate and rhythm Gastrointestinal: Abdomen is soft and non tender, no masses, bowel sounds normal. Extremities have full range of motion and are non tender. Skin: No rashes or lesions. DIFFERENTIAL DIAGNOSIS: After history and physical exam differential diagnosis w as considered for shortness of breath including but not limited to pulmonary infectious process, COPD, asthma, pulmonary embolus and congestive heart failure. Medical Decision Making Data Points Laboratory Hematology Test 10/13/18 08:32 Influenza Virus Type A (PCR) Negative (NEGATIVE) Influenza Virus Type B (PCR) Negative (NEGATIVE) Chemistry Test 10/13/18 08:32 Influenza Virus Type A (PCR) Negative (NEGATIVE) Influenza Virus Type B (PCR) Negative (NEGATIVE) EKG/Imaging Imaging X-ray: CXR was obtained. I viewed the images myself on the PACS system. My interpretation of the images is: bronchitis. The radiologist interpretation had no clinically significant variation from this interpretation. ED Course/Re-evaluation ED Course 58-year-old male with flulike symptoms for about 4-5 days. He feels improved with IV fluids, steroids, and Toradol. Also received a nebulizer treatment which he said helped him tremendously. Chest x-ray and presentation is consistent with an acute bronchitis. I do not think he needs antibiotics. He has an albuterol inhaler at home. I will also child care counselor him to take some Mucinex and use his albuterol inhaler for symptomatic relief. Decision to Disposition Date: Oct 13, 2018 Decision to Disposition Time: 10:16 Depart Departure Latest Vital Signs Vital Signs Date Time Temp Pulse Resp B/P (MAP) Pulse Ox O2 Delivery O2 Flow Rate FiO2 10/13/18 09:09 ??? 10/13/18 08:57 17 10/13/18 08:50 93 Room Air 10/13/18 08:30 137/79 (98) 10/13/18 08:13 97.4 Impression: Primary Impression: Bronchitis with bronchospasm Condition: Improved Disposition: HOME OR SELF-CARE Referrals: LEILANI VARGAS DO (PCP) Patient Instructions: Acute Bronchitis (ED) NATALIA DAVIES MD Oct 13, 2018 10:17
--- NOTE | 2018-10-13 15:17 | EKG ---
FACILITY: [facility] - [place] PATIENT NAME: NANCI EDWARDS : [id number] MR: [id number] V: [id number] EXAM DATE: ORDERING PHYSICIAN: NATALIA DAVIES TECHNOLOGIST: Test Reason : chest tightness Blood Pressure : / mmHG Vent. Rate : 098 BPM Atrial Rate : 098 BPM P-R Int : 136 ms QRS Dur : 082 ms QT Int : 378 ms P-R-T Axes : 051 060 073 degrees QTc Int : 482 ms Normal sinus rhythm Possible Anterior infarct (cited on or before 13-OCT-2018) Abnormal ECG When compared with ECG of 03-AUG-2018 16:17, Questionable change in initial forces of Anterior leads Confirmed by GRACE WILLINGHAM ([id number]) on 10/14/2018 6:44:18 AM Referred By: Confirmed By:GRACE WILLINGHAM
== END 2018-10-13 10:26 | disposition home or self-care (01) ==
LOC: ER 09:04
DX: J40 Bronchitis, not specified as acute or chronic (principal)
CPT/HCPCS: 71046; 87502; 93005; 94640; 96361; 96374; 96375; 99284; A9270; J1100; J1885; J7030; J7611

== ENCOUNTER 2018-10-28 18:30 | Emergency (ER) | payer MEDICARE, MEDICAID ==
--- NOTE | 2018-10-28 19:21 | ER Report ---
History and Physical Time Seen By MD: 19:16 Hx. of Stated Complaint: PATIENT REPORTS THAT HE WOKE UP DIZZY THIS MORNING. HE ALSO REPORTS NAUSEA AND WEAKNESS. HE IS A NIDDM AND TAKES INSULIN AND PO MEDS HPI/ROS CHIEF COMPLAINT: Aches, chills and fever HISTORY OF PRESENT ILLNESS: This is a 58-year-old male who presents to the emergency department for aches and chills. Patient states that he had an abrupt onset of aches, chills, body feels like was a fever, admits nausea no vomiting, positional dizziness. No chest pain or shortness breath. No abdominal pain or dysuria. No diarrhea. No rashes. Blood sugars have been around 120 for the patient today this is typical. No headaches or meningismus. He states he had bronchitis about a month ago, wondering if this is related. REVIEW OF SYSTEMS: Constitutional: As above. Eyes: No discharge. ENT: No sore throat. Cardiovascular: No chest pain, no palpitations. Respiratory: No cough, no shortness of breath. Gastrointestinal: As above. Genitourinary: No hematuria. Musculoskeletal: As above. Skin: No rashes. Neurological: No headache. Allergies: Coded Allergies: Penicillins (Verified Allergy, Unknown, 08/03/18) aspirin (Verified Allergy, Unknown, 08/03/18) Home Meds Active Scripts Meclizine Hcl (MECLIZINE HCL) 25 Mg Tablet, 25 MG PO BID, #12 TAB 0 Refills Prov:JARRET PÉREZ [employer] SALES REPRESENTATIVE-BC 08/03/18 Naproxen Sodium (ALEVE) 220 Mg Capsule, 440 MG PO TID, #30 CAPSULE Prov:JOSSELIN KESSLER DO 05/20/18 Ondansetron (ZOFRAN ODT) 4 Mg Tab.rapdis, 4 MG PO Q6H PRN for NAUSEA/VOMITING, #20 TAB 0 Refills Prov:SOHA BRAXTON MD 09/12/16 Reported Medications Insulin Lispro 100 Un/Ml Vial (HUMALOG 100 U/ML VIAL) 100 Unit/1 Ml Vial, SQ DIRECTED, VIAL 08/29/16 Methotrexate Sodium (METHOTREXATE) 2.5 Mg Tablet, 1 TAB PO WEEKLY, #32 08/29/16 Insulin Glargine,Hum.rec.anlog (Rebecca Solostar) 300 Unit/1 Ml Insuln.pen, 1 UNIT SQ DIRECTED, #12 08/29/16 Tamsulosin Hcl (FLOMAX) 0.4 Mg Cap.er.24h, 0.4 MG PO QDAY, #20 TAKE WITH FOOD. 10/16/13 Lactobacillus Combination No.4 (PROBIOTIC) 1 Each Capsule, 1 EACH PO BID, CAPSULE 10/13/13 Metoclopramide Hcl (METOCLOPRAMIDE HCL) 5 Mg/5 Ml Solution, 5 MG PO QID PRN 10/13/13 Albuterol Sulfate 90 Mcg/Act (PROAIR HFA 90 MCG/ACT) 8.5 Gm Hfa.aer.ad, 2 PUFF IH Q4-6H PRN 10/13/13 Montelukast Sodium (SINGULAIR) 10 Mg Tablet, 1 TAB PO QDAY TAKE ONE TABLET BY MOUTH EVERY DAY 10/13/13 Aripiprazole (ABILIFY) 2 Mg Tablet, 2 MG PO QDAY, TAB 10/13/13 Folic Acid (FOLIC ACID) 1 Mg Tablet, 1 MG PO DAILY 07/18/13 Metformin Hcl (METFORMIN HCL ER) 500 Mg Tab.er.24, 2 TAB PO BID TAKE TWO TABLETS BY MOUTH TWICE DAILY WITH FOOD 07/18/13 Fenofibrate (FENOFIBRATE) 160 Mg Tablet, 160 MG PO QDAY 07/18/13 Clonazepam (KLONOPIN) 0.5 Mg Tablet, 0.5 MG PO BID 07/18/13 Topiramate (TOPAMAX) 200 Mg Tablet, 200 MG PO BID 07/18/13 Rosuvastatin Calcium (CRESTOR) 20 Mg Tablet, 20 MG PO HS 07/18/13 Olanzapine (OLANZAPINE) 2.5 Mg Tablet, 2.5 MG PO HS 07/18/13 Lisinopril (LISINOPRIL) 10 Mg Tablet, 10 MG PO QDAY 07/18/13 Atomoxetine Hcl (STRATTERA) 40 Mg Capsule, 40 MG PO DAILY 07/18/13 Past Medical/Surgical History The patient has a past medical and surgical history of headaches, murmur, palpitations, angina, hypertension, hypercholesterolemia, environmental allergies, asthma, pneumonia, gastroparesis, kidney stones, right hip fracture, type II diabetes, depression, anxiety, panic disorder, ADHD, bipolar, lithotripsy, cataract removal. Reviewed Nurses Notes: Yes Hx Smoking: Yes Smoking Status: Former Smoker Exposure to Second Hand Smoke?: No Hx Substance Use Disorder: No Hx Alcohol Use: Yes Constitutional Vital Sign - Last 24 Hours 10/28/18 18:41 Temp 97.8 Pulse 104 Resp 20 B/P (MAP) 128/86 Pulse Ox 97 O2 Delivery Room Air Physical Exam General Appearance: The patient is alert, has no immediate need for airway protection and no signs of toxicity. Eyes: Pupils equal and round no pallor or injection. ENT, Mouth: Mucous membranes are moist. Respiratory: There are no retractions, lungs are clear to auscultation. Cardiovascular: Regular rate and rhythm, no murmurs, clicks or rubs. Gastrointestinal: Abdomen is soft and non tender, no masses, bowel sounds normal. Neurological: Alert and oriented 4. Moving all extremities. Following all commands. No focal neuro deficits. Skin: Warm and dry, no rashes. Musculoskeletal: Neck is supple non tender. Extremities are nontender, nonswollen and have full range of motion. DIFFERENTIAL DIAGNOSIS: After history and physical exam differential diagnosis w as considered for pneumonia, hypoglycemia, viral syndrome, bronchitis, labyrinthitis, vertigo and influenza. Medical Decision Making Data Points Result Diagram: 10/28/18195210/28/181952 Laboratory Hematology Test 10/28/18 18:45 10/28/18 19:50 10/28/18 19:53 Influenza Virus Type A (PCR) Negative (NEGATIVE) Influenza Virus Type B (PCR) Negative (NEGATIVE) Urine Color Straw Urine Clarity Clear Urine pH 8.0 pH (4.8-9.5) Urine Specific [place] 1.004 Urine Protein 30 mg/dL (NEGATIVE) Urine Glucose (UA) Negative mg/dL (NEGATIVE) Urine Ketones Negative mg/dL (NEGATIVE) Urine Blood Negative (NEGATIVE) Urine Nitrite Negative (NEGATIVE) Urine Bilirubin Negative (NEGATIVE) Urine Urobilinogen Negative mg/dL (0.2-1.9) Urine Leukocyte Esterase Negative (NEGATIVE) Urine RBC None /HPF (0-2/HPF) Urine WBC <1 /HPF (0-5/HPF) Urine Squamous Epithelial Cells None /LPF (</=FEW) Urine Bacteria Negative /HPF (NONE-FEW) Urine Mucus None /HPF (NONE-FEW) Red Blood Count 4.87 M/uL (4.00-5.60) Mean Corpuscular Volume 87.6 fL (80.0-96.0) Mean Corpuscular Hemoglobin 30.4 pg (26.0-33.0) Mean Corpuscular Hemoglobin Concent 34.7 g/dL (32.0-36.0) Red Cell Distribution Width 13.3 % (11.5-14.5) Mean Platelet Volume 9.2 fL (7.2-11.1) Neutrophils (%) (Auto) 68.8 % (39.4-72.5) Lymphocytes (%) (Auto) 19.8 % (17.6-49.6) Monocytes (%) (Auto) 4.8 % (4.1-12.4) Eosinophils (%) (Auto) 4.1 % (0.4-6.7) Basophils (%) (Auto) 2.5 % (0.3-1.4) Nucleated RBC Relative Count (auto) 0.0 /100WBC Neutrophils # (Auto) 6.6 K/uL (2.0-7.4) Lymphocytes # (Auto) 1.9 K/uL (1.3-3.6) Monocytes # (Auto) 0.5 K/uL (0.3-1.0) Eosinophils # (Auto) 0.4 K/uL (0.0-0.5) Basophils # (Auto) 0.2 K/uL (0.0-0.1) Nucleated RBC Absolute Count (auto) 0.00 K/uL Sodium Level 128 mmol/L (137-145) Potassium Level 4.0 mmol/L (3.5-5.0) Chloride Level 97 mmol/L (98-107) Carbon Dioxide Level 26 mmol/L (22-30) Blood Urea Nitrogen 15 mg/dl (9-21) Creatinine 1.10 mg/dl (0.66-1.25) Glomerular Filtration Rate Calc > 60.0 Random Glucose 86 mg/dl (75-110) Calcium Level 8.4 mg/dl (8.4-10.2) Total Bilirubin 0.1 mg/dl (0.2-1.3) Aspartate Amino Transf (AST/SGOT) 19 U/L (0-35) Alanine Aminotransferase (ALT/SGPT) 28 U/L (0-56) Alkaline Phosphatase 94 U/L (0-126) Total Protein 5.3 g/dl (6.3-8.2) Albumin 2.9 g/dl (3.5-5.0) Chemistry Test 10/28/18 18:45 10/28/18 19:50 10/28/18 19:53 Influenza Virus Type A (PCR) Negative (NEGATIVE) Influenza Virus Type B (PCR) Negative (NEGATIVE) Urine Color Straw Urine Clarity Clear Urine pH 8.0 pH (4.8-9.5) Urine Specific [place] 1.004 Urine Protein 30 mg/dL (NEGATIVE) Urine Glucose (UA) Negative mg/dL (NEGATIVE) Urine Ketones Negative mg/dL (NEGATIVE) Urine Blood Negative (NEGATIVE) Urine Nitrite Negative (NEGATIVE) Urine Bilirubin Negative (NEGATIVE) Urine Urobilinogen Negative mg/dL (0.2-1.9) Urine Leukocyte Esterase Negative (NEGATIVE) Urine RBC None /HPF (0-2/HPF) Urine WBC <1 /HPF (0-5/HPF) Urine Squamous Epithelial Cells None /LPF (</=FEW) Urine Bacteria Negative /HPF (NONE-FEW) Urine Mucus None /HPF (NONE-FEW) White Blood Count 9.5 k/uL (4.5-11.0) Red Blood Count 4.87 M/uL (4.00-5.60) Hemoglobin 14.8 g/dL (14.0-18.0) Hematocrit 42.7 % (42.0-52.0) Mean Corpuscular Volume 87.6 fL (80.0-96.0) Mean Corpuscular Hemoglobin 30.4 pg (26.0-33.0) Mean Corpuscular Hemoglobin Concent 34.7 g/dL (32.0-36.0) Red Cell Distribution Width 13.3 % (11.5-14.5) Platelet Count 217 K/uL (150-450) Mean Platelet Volume 9.2 fL (7.2-11.1) Neutrophils (%) (Auto) 68.8 % (39.4-72.5) Lymphocytes (%) (Auto) 19.8 % (17.6-49.6) Monocytes (%) (Auto) 4.8 % (4.1-12.4) Eosinophils (%) (Auto) 4.1 % (0.4-6.7) Basophils (%) (Auto) 2.5 % (0.3-1.4) Nucleated RBC Relative Count (auto) 0.0 /100WBC Neutrophils # (Auto) 6.6 K/uL (2.0-7.4) Lymphocytes # (Auto) 1.9 K/uL (1.3-3.6) Monocytes # (Auto) 0.5 K/uL (0.3-1.0) Eosinophils # (Auto) 0.4 K/uL (0.0-0.5) Basophils # (Auto) 0.2 K/uL (0.0-0.1) Nucleated RBC Absolute Count (auto) 0.00 K/uL Glomerular Filtration Rate Calc > 60.0 Calcium Level 8.4 mg/dl (8.4-10.2) Total Bilirubin 0.1 mg/dl (0.2-1.3) Aspartate Amino Transf (AST/SGOT) 19 U/L (0-35) Alanine Aminotransferase (ALT/SGPT) 28 U/L (0-56) Alkaline Phosphatase 94 U/L (0-126) Total Protein 5.3 g/dl (6.3-8.2) Albumin 2.9 g/dl (3.5-5.0) Urinalysis Test 10/28/18 19:50 Urine Color Straw Urine Clarity Clear Urine pH 8.0 pH (4.8-9.5) Urine Specific [place] 1.004 Urine Protein 30 mg/dL (NEGATIVE) Urine Glucose (UA) Negative mg/dL (NEGATIVE) Urine Ketones Negative mg/dL (NEGATIVE) Urine Blood Negative (NEGATIVE) Urine Nitrite Negative (NEGATIVE) Urine Bilirubin Negative (NEGATIVE) Urine Urobilinogen Negative mg/dL (0.2-1.9) Urine Leukocyte Esterase Negative (NEGATIVE) Urine RBC None /HPF (0-2/HPF) Urine WBC <1 /HPF (0-5/HPF) Urine Squamous Epithelial Cells None /LPF (</=FEW) Urine Bacteria Negative /HPF (NONE-FEW) Urine Mucus None /HPF (NONE-FEW) EKG/Imaging Imaging Location: [facility] - [place] Patient: Venancio Walton : 1960 Visit/Account:[id number] Date of Sevice: 10/28/2018 EXAMINATION: Chest radiograph HISTORY: Fever COMPARISON: 10/13/2018 FINDINGS: Frontal view obtained. Lines/tubes: None. Cardiomediastinal silhouette: Normal. Lungs/pleura: Normal. Bony structures/chest wall: No significant abnormality. IMPRESSION: No acute finding. Report Dictated By: Rudy Carnes MD at 10/28/2018 10:04 PM Report E-Signed By: Rudy Carnes MD at 10/28/2018 10:05 PM WSN:[id number] ED Course/Re-evaluation Clinical Indication for ER IV: Hydration, IV Access ED Course The patient was admitted to room. A history and physical were obtained. Differential diagnoses were considered. IV was started. A CBC, CMP and UA were collected. A 1 L normal saline bolus was given. Influenza was collected. CBC unremarkable, chemistry showing sodium 128. Sodium will correct with IV fluids, this was discussed with the patient. A single E chest x-ray was negative for any acute cardiopulmonary process. This is reviewed with the patient. I did tell him this is likely viral illness and will likely pass, patient asked for antibiotics I did explain to him that antibiotics are not warranted at this time this is a viral illness. Patient did ambulate with a steady gait while in the emergency department, had no more complaints of dizziness after the fluids. I did tell him like him to follow up with his primary care provider within one week for reevaluation. Patient expresses understanding, was in agreement with this plan care and discharged home. Decision to Disposition Date: Oct 28, 2018 Decision to Disposition Time: 22:15 Depart Departure Latest Vital Signs Vital Signs Date Time Temp Pulse Resp B/P (MAP) Pulse Ox O2 Delivery O2 Flow Rate FiO2 10/28/18 18:41 97.8 104 20 128/86 97 Room Air Impression: Primary Impression: Viral syndrome Condition: Improved Disposition: HOME OR SELF-CARE Referrals: WSETHA SALDIVAR DO 1 Week Patient Instructions: Viral Syndrome (ED) Additional Instructions: There were no concerning findings noted today, other than a mildly low sodium, the IV fluids you received today will help with correcting this. Please continue to monitor your blood sugars closely. Get plenty of rest. Drink plenty of water. Follow up with your primary care provider within 1 week for reevaluation. Return to the ED for any other concerns or worsening symptoms. Take Ibuprofen or Tylenol as needed for aches or pains. JARRET PÉREZP- Oct 28, 2018 19:21
[2018-10-28] MEDS ORDERED: NS(*) 0.9% 1000 ML BAG 1,000 ML IV ONE (19:28)
[2018-10-28 20:06] LABS: PLATELET COUNT, AUTOMATED 217 K/uL (150-450)
[2018-10-28 21:00] VITALS: BP 114/67
--- NOTE | 2018-10-28 22:09 | RADIOLOGY IMAGING REPORT ---
[place] [facility] [place] Venancio Walton : 1960 MR: [id number] V: [id number] EXAM DATE: ORDERING PHYSICIAN: JARRET PÉREZ TECHNOLOGIST: Location: [facility] Patient: Venancio Walton : 1960 Visit/Account:[id number] Date of Sevice: 10/28/2018 EXAMINATION: Chest radiograph HISTORY: Fever COMPARISON: 10/13/2018 FINDINGS: Frontal view obtained. Lines/tubes: None. Cardiomediastinal silhouette: Normal. Lungs/pleura: Normal. Bony structures/chest wall: No significant abnormality. IMPRESSION: No acute finding. Report Dictated By: Rudy Carnes MD at 10/28/2018 10:04 PM Report E-Signed By: Rudy Carnes MD at 10/28/2018 10:05 PM WSN:[id number]
== END 2018-10-28 22:27 | disposition home or self-care (01) ==
LOC: ER 19:02
DX: B34.9 Viral infection, unspecified (principal)
CPT/HCPCS: 36416; 71045; 81001; 82948; 85025; 87502; 96360; 99283; J7030; 82040; 82247; 82310; 82374; 82435; 82565; 82947; 84075; 84132; 84155; 84295; 84450; 84460; 84520

== ENCOUNTER 2018-12-25 11:32 | Emergency (ER) | payer MEDICARE, MEDICAID ==
[~2018-12-25 11:32] MED LIST changes: -ROSU20TA23 PO; +ROSU20TA24 PO
--- NOTE | 2018-12-25 11:45 | ER Report ---
History and Physical Time Seen By MD: 11:44 Hx. of Stated Complaint: sob onset this am, lightheaded, cough, headache, aches HPI/ROS CHIEF COMPLAINT: Cough shortness of breath HISTORY OF PRESENT ILLNESS: 58-year-old male multiple past medical history no heart disease or lung disease other than brief hyperreactive airway comes emergency Department today woke this morning feeling somewhat lethargic and tired had a mild nonproductive cough and some shortness of breath no chest pain no abdominal pain no nausea no vomiting patient was a smoker and is a teenager but hasn't smoked in 30+ years patient denies any chest pain this time says his cough is productive of some thickish sputum patient has no recent travel or sick contacts no additional complaints noted REVIEW OF SYSTEMS: Respiratory: cough, dyspnea. Cardiovascular: No chest pain, no palpitations. Gastrointestinal: No vomiting, no abdominal pain. Musculoskeletal: No back pain. Remainder of the 14 system rev: Yes Allergies: Coded Allergies: Penicillins (Verified Allergy, Unknown, 08/03/18) aspirin (Verified Allergy, Unknown, 08/03/18) Home Meds Active Scripts Meclizine Hcl (MECLIZINE HCL) 25 Mg Tablet, 25 MG PO BID, #12 TAB 0 Refills Prov:JARRET PÉREZ QUILL STRIPPER-BC 08/03/18 Naproxen Sodium (ALEVE) 220 Mg Capsule, 440 MG PO TID, #30 CAPSULE Prov:JOSSELIN KESSLER DO 05/20/18 Ondansetron (ZOFRAN ODT) 4 Mg Tab.rapdis, 4 MG PO Q6H PRN for NAUSEA/VOMITING, #20 TAB 0 Refills Prov:SOHA BRAXTON MD 09/12/16 Reported Medications Insulin Lispro 100 Un/Ml Vial (HUMALOG 100 U/ML VIAL) 100 Unit/1 Ml Vial, SQ DIRECTED, VIAL 08/29/16 Methotrexate Sodium (METHOTREXATE) 2.5 Mg Tablet, 1 TAB PO WEEKLY, #32 08/29/16 Insulin Glargine,Hum.rec.anlog (Rebecca [place]) 300 Unit/1 Ml Insuln.pen, 1 UNIT SQ DIRECTED, #12 08/29/16 Tamsulosin Hcl (FLOMAX) 0.4 Mg Cap.er.24h, 0.4 MG PO QDAY, #20 TAKE WITH FOOD. 1/2/14 Lactobacillus Combination No.4 (PROBIOTIC) 1 Each Capsule, 1 EACH PO BID, CAPSULE 10/13/13 Metoclopramide Hcl (METOCLOPRAMIDE HCL) 5 Mg/5 Ml Solution, 5 MG PO QID PRN 10/13/13 Albuterol Sulfate 90 Mcg/Act (PROAIR HFA 90 MCG/ACT) 8.5 Gm Hfa.aer.ad, 2 PUFF IH Q4-6H PRN 10/13/13 Montelukast Sodium (SINGULAIR) 10 Mg Tablet, 1 TAB PO QDAY TAKE ONE TABLET BY MOUTH EVERY DAY 10/13/13 Aripiprazole (ABILIFY) 2 Mg Tablet, 2 MG PO QDAY, TAB 10/13/13 Folic Acid (FOLIC ACID) 1 Mg Tablet, 1 MG PO DAILY 07/18/13 Metformin Hcl (METFORMIN HCL ER) 500 Mg Tab.er.24, 2 TAB PO BID TAKE TWO TABLETS BY MOUTH TWICE DAILY WITH FOOD 07/18/13 Fenofibrate (FENOFIBRATE) 160 Mg Tablet, 160 MG PO QDAY 07/18/13 Clonazepam (KLONOPIN) 0.5 Mg Tablet, 0.5 MG PO BID 07/18/13 Topiramate (TOPAMAX) 200 Mg Tablet, 200 MG PO BID 07/18/13 Rosuvastatin Calcium (CRESTOR) 20 Mg Tablet, 20 MG PO HS 07/18/13 Olanzapine (OLANZAPINE) 2.5 Mg Tablet, 2.5 MG PO HS 07/18/13 Lisinopril (LISINOPRIL) 10 Mg Tablet, 10 MG PO QDAY 07/18/13 Atomoxetine Hcl (STRATTERA) 40 Mg Capsule, 40 MG PO DAILY 07/18/13 Reviewed Nurses Notes: Yes Old Medical Records Reviewed: Yes Hx Smoking: Yes Smoking Status: Former Smoker Exposure to Second Hand Smoke?: No Hx Substance Use Disorder: No Hx Alcohol Use: Yes Constitutional Vital Sign - Last 24 Hours 12/25/18 12/25/18 12/25/18 12/25/18 11:32 11:36 11:38 11:47 Temp 97.4 Pulse ??? 125 113 Resp 20 19 B/P (MAP) 188/106 188/106 (133) Pulse Ox 91 91 O2 Delivery Room Air 12/25/18 12/25/18 12/25/18 12/25/18 12:02 12:03 12:15 12:17 Pulse 110 113 Resp 14 12 B/P (MAP) 144/95 (111) 149/98 (115) Pulse Ox 94 96 12/25/18 12/25/18 12/25/18 12/25/18 12:30 12:32 12:45 12:47 Pulse 117 104 Resp 24 25 B/P (MAP) 147/98 (114) 149/110 (123) Pulse Ox 96 97 Physical Exam General Appearance: The patient is alert, has no immediate need for airway protection and no current signs of toxicity. [ ] Eyes: Pupils equal and round no injection. Respiratory: Chest is non tender, lungs are clear to auscultation. Cardiac: regular rate and rhythm [ ] Gastrointestinal: Abdomen is soft and non tender, no masses, bowel sounds normal. Musculoskeletal: Neck: Neck is supple and non tender. Extremities have full range of motion and are non tender. Skin: No rashes or lesions. [ ] DIFFERENTIAL DIAGNOSIS: After history and physical exam differential diagnosis was considered for proctitis pneumonia upper respiratory infection COPD CHF Medical Decision Making Data Points Result Diagram: 12/25/18 1200 12/25/18 1200 Laboratory Hematology Test 12/25/18 12:00 12/25/18 12:22 12/25/18 12:24 Red Blood Count 5.05 M/uL (4.00-5.60) Mean Corpuscular Volume 89.8 fL (80.0-96.0) Mean Corpuscular Hemoglobin 30.3 pg (26.0-33.0) Mean Corpuscular Hemoglobin Concent 33.8 g/dL (32.0-36.0) Red Cell Distribution Width 14.0 % (11.5-14.5) Mean Platelet Volume 9.5 fL (7.2-11.1) Neutrophils (%) (Auto) 86.1 % (39.4-72.5) Lymphocytes (%) (Auto) 5.8 % (17.6-49.6) Monocytes (%) (Auto) 6.9 % (4.1-12.4) Eosinophils (%) (Auto) 0.8 % (0.4-6.7) Basophils (%) (Auto) 0.4 % (0.3-1.4) Nucleated RBC Relative Count (auto) 0.0 /100WBC Neutrophils # (Auto) 12.2 K/uL (2.0-7.4) Lymphocytes # (Auto) 0.8 K/uL (1.3-3.6) Monocytes # (Auto) 1.0 K/uL (0.3-1.0) Eosinophils # (Auto) 0.1 K/uL (0.0-0.5) Basophils # (Auto) 0.1 K/uL (0.0-0.1) Nucleated RBC Absolute Count (auto) 0.00 K/uL D-Dimer Quantitative (PE/DVT) 0.54 ug/ml (0-0.50) Sodium Level 138 mmol/L (137-145) Potassium Level 2.7 mmol/L (3.5-5.0) Chloride Level 100 mmol/L (98-107) Carbon Dioxide Level 31 mmol/L (22-30) Blood Urea Nitrogen 9 mg/dl (9-21) Creatinine 0.80 mg/dl (0.66-1.25) Glomerular Filtration Rate Calc > 60.0 Random Glucose 321 mg/dl (75-110) Calcium Level 8.0 mg/dl (8.4-10.2) Total Bilirubin 0.7 mg/dl (0.2-1.3) Aspartate Amino Transf (AST/SGOT) 25 U/L (0-35) Alanine Aminotransferase (ALT/SGPT) 44 U/L (0-56) Alkaline Phosphatase 172 U/L (0-126) Troponin I 0.065 ng/ml B-Type Natriuretic Peptide 383 pg/ml (0-100) Total Protein 6.2 g/dl (6.3-8.2) Albumin 3.5 g/dl (3.5-5.0) Serum Alcohol < 10 mg/dl Whole Blood Glucose 311 mg/DL (75-110) Influenza Virus Type A (PCR) Negative (NEGATIVE) Influenza Virus Type B (PCR) Negative (NEGATIVE) Chemistry Test 12/25/18 12:00 12/25/18 12:22 12/25/18 12:24 White Blood Count 14.2 k/uL (4.5-11.0) Red Blood Count 5.05 M/uL (4.00-5.60) Hemoglobin 15.3 g/dL (14.0-18.0) Hematocrit 45.4 % (42.0-52.0) Mean Corpuscular Volume 89.8 fL (80.0-96.0) Mean Corpuscular Hemoglobin 30.3 pg (26.0-33.0) Mean Corpuscular Hemoglobin Concent 33.8 g/dL (32.0-36.0) Red Cell Distribution Width 14.0 % (11.5-14.5) Platelet Count 195 K/uL (150-450) Mean Platelet Volume 9.5 fL (7.2-11.1) Neutrophils (%) (Auto) 86.1 % (39.4-72.5) Lymphocytes (%) (Auto) 5.8 % (17.6-49.6) Monocytes (%) (Auto) 6.9 % (4.1-12.4) Eosinophils (%) (Auto) 0.8 % (0.4-6.7) Basophils (%) (Auto) 0.4 % (0.3-1.4) Nucleated RBC Relative Count (auto) 0.0 /100WBC Neutrophils # (Auto) 12.2 K/uL (2.0-7.4) Lymphocytes # (Auto) 0.8 K/uL (1.3-3.6) Monocytes # (Auto) 1.0 K/uL (0.3-1.0) Eosinophils # (Auto) 0.1 K/uL (0.0-0.5) Basophils # (Auto) 0.1 K/uL (0.0-0.1) Nucleated RBC Absolute Count (auto) 0.00 K/uL D-Dimer Quantitative (PE/DVT) 0.54 ug/ml (0-0.50) Glomerular Filtration Rate Calc > 60.0 Calcium Level 8.0 mg/dl (8.4-10.2) Total Bilirubin 0.7 mg/dl (0.2-1.3) Aspartate Amino Transf (AST/SGOT) 25 U/L (0-35) Alanine Aminotransferase (ALT/SGPT) 44 U/L (0-56) Alkaline Phosphatase 172 U/L (0-126) Troponin I 0.065 ng/ml B-Type Natriuretic Peptide 383 pg/ml (0-100) Total Protein 6.2 g/dl (6.3-8.2) Albumin 3.5 g/dl (3.5-5.0) Serum Alcohol < 10 mg/dl Whole Blood Glucose 311 mg/DL (75-110) Influenza Virus Type A (PCR) Negative (NEGATIVE) Influenza Virus Type B (PCR) Negative (NEGATIVE) Coagulation Test 12/25/18 12:00 D-Dimer Quantitative (PE/DVT) 0.54 ug/ml Toxicology Test 12/25/18 12:00 Serum Alcohol < 10 mg/dl ED Course/Re-evaluation ED Course Medical decision making 58-year-old male returns emergency Department comes in with cough and shortness of breath he does have what looks like a lower lobe inf iltrate no sign of pulmonary embolus EKG was unremarkable slight bump in his troponin is 0.6 a unremarkable patient will be discharged diagnosed pneumonia blood cultures done sent for results lactic acid also collectible bienzyme antibiotics with primary care follow-up return if symptoms worsen Decision to Disposition Date: Dec 25, 2018 Decision to Disposition Time: 13:57 Depart Departure Latest Vital Signs Vital Signs Date Time Temp Pulse Resp B/P (MAP) Pulse Ox O2 Delivery O2 Flow Rate FiO2 12/25/18 12:47 104 25 97 12/25/18 12:45 149/110 (123) 12/25/18 11:36 97.4 Room Air Impression: Primary Impression: Pneumonia Condition: Improved Disposition: HOME OR SELF-CARE Referrals: LEILANI VARGAS DO (PCP) 5 Days New Scripts Azithromycin 250 Mg Tab (AZITHROMYCIN 250 MG TAB) 250 Mg Tablet 2 TAB PO QDAY for 14 Days, TAB Prov: BABITA BLACKWELL MD 12/25/18 Patient Instructions: Community Acquired Pneumonia (DC) BABITA BLACKWELL MD Dec 25, 2018 11:45
--- NOTE | 2018-12-25 11:52 | EKG ---
FACILITY: [facility] [place] PATIENT NAME: NANCI EDWARDS : [id number] MR: [id number] V: [id number] EXAM DATE: ORDERING PHYSICIAN: BABITA BLACKWELL TECHNOLOGIST: Test Reason : Blood Pressure : / mmHG Vent. Rate : 112 BPM Atrial Rate : 112 BPM P-R Int : 132 ms QRS Dur : 086 ms QT Int : 366 ms P-R-T Axes : 033 049 058 degrees QTc Int : 499 ms Sinus tachycardia with premature atrial complexes Otherwise normal ECG When compared with ECG of 13-OCT-2018 09:22, premature atrial complexes are now present Confirmed by GRACE WILLINGHAM ([id number]) on 12/25/2018 12:49:20 PM Referred By: Confirmed By:GRACE WILLINGHAM
[2018-12-25 12:17] LABS: PLATELET COUNT, AUTOMATED 195 K/uL (150-450)
[2018-12-25] MEDS ORDERED: POTASSIUM CHL 20 MEQ TABCR PO ONE (12:25)
[2018-12-25] MEDS ORDERED: KCL/D5LR 20 MEQ/1000 ML PREMIX 1,000 ML IV SCH (12:25)
--- NOTE | 2018-12-25 12:28 | RADIOLOGY IMAGING REPORT ---
FACILITY: [facility] - [place] PATIENT NAME: Venancio Walton : 1960 MR: [id number] V: [id number] EXAM DATE: ORDERING PHYSICIAN: BABITA BLACKWELL TECHNOLOGIST: Location: [facility] [place] Patient: Venancio Walton : 1960 Visit/Account:[id number] Date of Sevice: 12/25/2018 CHEST PA LAT COMPARISONS: Single view chest dated October 28, 2018 ADDITIONAL PERTINENT HISTORY: Cough FINDINGS: Cardiomediastinal silhouette: Negative. Pulmonary vasculature: Negative. Lung reyes: Mild peribronchial thickening with patchy opacity in the left lower lobe concerning for a superimposed region of infiltrate. Pleural spaces: Negative. Osseous structures: Negative. Surrounding soft tissues: Negative. IMPRESSION: 1. Underlying bronchitic change. 2. Findings concerning for a left lower lobe infiltrate posteriorly. Report Dictated By: Wilman Ashton MD at 12/25/2018 12:22 PM Report E-Signed By: Wilman Ashton MD at 12/25/2018 12:23 PM WSN:[id number]
[2018-12-25] MEDS ORDERED: INSU HUM REG 100 U/ML(ER ONLY) 10 ML VIAL SUBQ ONE (12:30)
[2018-12-25] MEDS ORDERED: NS(*) 0.9% 50 ML BAG 50 ML ONE (12:42)
[2018-12-25] MEDS ORDERED: IOPAMIDOL 76% 100 ML INFUS BTL 100 ML ONE (12:42)
--- NOTE | 2018-12-25 13:40 | RADIOLOGY IMAGING REPORT ---
FACILITY: [facility] - [place] PATIENT NAME: Venancio Walton : 1960 MR: [id number] V: [id number] EXAM DATE: ORDERING PHYSICIAN: BABITA BLACKWELL TECHNOLOGIST: Location: [facility] [place] Patient: Venancio Walton : 1960 Visit/Account:[id number] Date of Sevice: 12/25/2018 CT angiogram chest with contrast Indication: Short of breath. Comparison: None available. Technique: Axial CT images are obtained through the chest after administration of 75 mL Isovue 370 IV contrast. Reformatted coronal and sagittal images were reviewed as well as coronal MIP images. One of the following dose optimization techniques was utilized in the performance of this exam: auto mated exposure control; adjustment of the mA and/or kV according to the patient's size; or use of an iterative reconstruction technique. Specific details can be referenced in the facility's radiology C T exam operational policy. FINDINGS: No evidence of filling defect within the pulmonary vasculature to suggest pulmonary embolus. The heart is normal size without pericardial effusion. Coronary artery calcifications are present. Th e aorta shows mild atherosclerotic calcific changes without aneurysm or dissection. The mediastinum a nd hilar regions show a few small lymph nodes without enlarged lymph nodes or abnormal density. Lungs show very small left pleural effusion with minimal atelectasis. No right effusion. No consolida tions, pneumothorax or discrete nodule. No focal interstitial opacities. Airways are clear. Bony structures show no acute fractures. Old right ninth and 10th rib fractures. Posttraumatic change s from previous injury of the proximal left humerus. No aggressive bony lesions. Degenerative change seen spine. Chest wall shows no enlarged axillary lymph nodes or masses. Limited views of the upper abdomen are unremarkable. IMPRESSION: 1. No evidence of pulmonary embolus. 2. Very small left pleural effusion with minimal atelectasis. 3. Other chronic findings as above. Report Dictated By: Mark Hernandez at 12/25/2018 1:29 PM Report E-Signed By: Mark Hernandez at 12/25/2018 1:37 PM WSN:[id number]
[2018-12-25] MEDS ORDERED: AZIT-18 PO (13:59)
[2018-12-25 14:00] VITALS: BP 127/82
== END 2018-12-25 14:16 | disposition home or self-care (01) ==
LOC: ER 11:47
DX: J18.9 Pneumonia, unspecified organism (principal)
CPT/HCPCS: 36416; 71046; 71275; 82948; 83605; 83880; 84484; 85025; 85379; 87040; 87502; 93005; 99284; A9270; G0480; J3480; J7050; Q9967; 80320; 82040; 82247; 82310; 82374; 82435; 82565; 82947; 84075; 84132; 84155; 84295; 84450; 84460; 84520; J1815

== ENCOUNTER 2019-01-07 23:08 | Emergency (ER) | payer MEDICARE, MEDICAID ==
--- NOTE | 2019-01-07 23:11 | ER Report ---
History and Physical Time Seen By MD: 23:11 HPI/ROS CHIEF COMPLAINT: Shortness of breath, cough HISTORY OF PRESENT ILLNESS: 58-year-old male seen here on 12/25/18 with shortness of breath. He had diagnostic studies. It suggested a left lower lobe pneumonia. He was treated with Zithromax. He had a CTA which was negative for PE. She is a type II diabetic with insulin required his blood sugars been running high for the last 24 hours. She notes some subjective fever and chills. Patient denies chest pain. Patient denies leg swelling or calf pain. REVIEW OF SYSTEMS: Respiratory: As above Cardiovascular: No chest pain, no palpitations. Gastrointestinal: No vomiting, no abdominal pain. Musculoskeletal: No back pain. Allergies: Coded Allergies: Penicillins (Verified Allergy, Unknown, 01/07/19) aspirin (Verified Allergy, Unknown, 01/07/19) Home Meds Active Scripts Levofloxacin 500 Mg Tab (LEVAQUIN 500 MG TAB) 500 Mg Tablet, 500 MG PO DAILY for infection, #6 TAB Prov:LESVIA SMITH DO 01/08/19 Azithromycin 250 Mg Tab (AZITHROMYCIN 250 MG TAB) 250 Mg Tablet, 2 TAB PO QDAY for 14 Days, TAB Prov:BABITA BLACKWELL MD 12/25/18 Meclizine Hcl (MECLIZINE HCL) 25 Mg Tablet, 25 MG PO BID, #12 TAB 0 Refills Prov:JARRET PÉREZ [facility]- 08/03/18 Naproxen Sodium (ALEVE) 220 Mg Capsule, 440 MG PO TID, #30 CAPSULE Prov:JOSSELIN KESSLER DO 05/20/18 Ondansetron (ZOFRAN ODT) 4 Mg Tab.rapdis, 4 MG PO Q6H PRN for NAUSEA/VOMITING, #20 TAB 0 Refills Prov:SOHA BRAXTON MD 09/12/16 Reported Medications Insulin Lispro 100 Un/Ml Vial (HUMALOG 100 U/ML VIAL) 100 Unit/1 Ml Vial, SQ DIRECTED, VIAL 08/29/16 Methotrexate Sodium (METHOTREXATE) 2.5 Mg Tablet, 1 TAB PO WEEKLY, #32 08/29/16 Insulin Glargine,Hum.rec.anlog (Rebecca Madrid) 300 Unit/1 Ml Insuln.pen, 1 UNIT SQ DIRECTED, #12 08/29/16 Tamsulosin Hcl (FLOMAX) 0.4 Mg Cap.er.24h, 0.4 MG PO QDAY, #20 TAKE WITH FOOD. 10/16/13 Lactobacillus Combination No.4 (PROBIOTIC) 1 Each Capsule, 1 EACH PO BID, CAPSULE 10/13/13 Metoclopramide Hcl (METOCLOPRAMIDE HCL) 5 Mg/5 Ml Solution, 5 MG PO QID PRN 10/13/13 Albuterol Sulfate 90 Mcg/Act (PROAIR HFA 90 MCG/ACT) 8.5 Gm Hfa.aer.ad, 2 PUFF IH Q4-6H PRN 10/13/13 Montelukast Sodium (SINGULAIR) 10 Mg Tablet, 1 TAB PO QDAY TAKE ONE TABLET BY MOUTH EVERY DAY 10/13/13 Aripiprazole (ABILIFY) 2 Mg Tablet, 2 MG PO QDAY, TAB 10/13/13 Folic Acid (FOLIC ACID) 1 Mg Tablet, 1 MG PO DAILY 07/18/13 Metformin Hcl (METFORMIN HCL ER) 500 Mg Tab.er.24, 2 TAB PO BID TAKE TWO TABLETS BY MOUTH TWICE DAILY WITH FOOD 07/18/13 Fenofibrate (FENOFIBRATE) 160 Mg Tablet, 160 MG PO QDAY 07/18/13 Clonazepam (KLONOPIN) 0.5 Mg Tablet, 0.5 MG PO BID 07/18/13 Topiramate (TOPAMAX) 200 Mg Tablet, 200 MG PO BID 07/18/13 Rosuvastatin Calcium (CRESTOR) 20 Mg Tablet, 20 MG PO HS 07/18/13 Olanzapine (OLANZAPINE) 2.5 Mg Tablet, 2.5 MG PO HS 07/18/13 Lisinopril (LISINOPRIL) 10 Mg Tablet, 10 MG PO QDAY 07/18/13 Atomoxetine Hcl (STRATTERA) 40 Mg Capsule, 40 MG PO DAILY 07/18/13 Past Medical/Surgical History The patient has a past medical and surgical history of headaches, murmur, palpitations, angina, hypertension, hypercholesterolemia, environmental allergies, asthma, pneumonia, gastroparesis, kidney stones, right hip fracture, type II diabetes, depression, anxiety, panic disorder, ADHD, bipolar, lithot ripsy, cataract removal. Reviewed Nurses Notes: Yes Old Medical Records Reviewed: Yes Hx Smoking: Yes Smoking Status: Former Smoker Exposure to Second Hand Smoke?: No Hx Substance Use Disorder: No Hx Alcohol Use: Yes Constitutional Vital Sign - Last 24 Hours 01/07/19 01/07/19 01/07/19 01/07/19 23:12 23:16 23:30 23:38 Temp 98.0 Pulse 112 106 Resp 20 22 B/P (MAP) 161/116 (131) 161/116 139/83 (101) Pulse Ox 95 93 O2 Delivery Room Air 01/07/19 01/07/19 01/07/19 01/08/19 23:43 23:50 23:50 00:13 Pulse 105 105 Resp 11 18 25 B/P (MAP) 139/93 (108) Pulse Ox 98 94 O2 Delivery Room Air 01/08/19 01/08/19 01/08/19 00:30 01:00 01:13 Pulse 102 Resp 16 B/P (MAP) 142/90 (107) 155/102 (119) Pulse Ox 96 Intake and Output 01/07/19 01/07/19 01/08/19 15:00 23:00 07:00 Intake Total 1000 ml Balance 1000 ml Physical Exam General Appearance: The patient is alert, has no immediate need for airway protection and no current signs of toxicity. Vital signs stable, afebrile, HEENT: Pupils equal and round no injection. TMs normal, oropharynx with gross erythema, trace exudate, no tonsillar hypertrophy Respiratory: Chest is non tender, lungs are clear to auscultation. Faint expiratory wheezing, no Rales Cardiac: regular rate and rhythm Gastrointestinal: Abdomen is soft and non tender, no masses, bowel sounds normal. Musculoskeletal: Neck: Neck is supple and non tender. Extremities have full range of motion and are non tender. Skin: No rashes or lesions. DIFFERENTIAL DIAGNOSIS: After history and physical exam differential diagnosis was considered for shortness of breath including but not limited to pulmonary infectious process, COPD, asthma, pulmonary embolus and congestive heart failure. Medical Decision Making Data Points Result Diagram: 01/07/195 01/07/195 Laboratory Hematology Test 01/07/19 23:25 01/07/19 23:36 Red Blood Count 5.02 M/uL (4.00-5.60) Mean Corpuscular Volume 90.3 fL (80.0-96.0) Mean Corpuscular Hemoglobin 30.3 pg (26.0-33.0) Mean Corpuscular Hemoglobin Concent 33.6 g/dL (32.0-36.0) Red Cell Distribution Width 14.0 % (11.5-14.5) Mean Platelet Volume 8.5 fL (7.2-11.1) Neutrophils (%) (Auto) 69.7 % (39.4-72.5) Lymphocytes (%) (Auto) 19.2 % (17.6-49.6) Monocytes (%) (Auto) 5.3 % (4.1-12.4) Eosinophils (%) (Auto) 4.2 % (0.4-6.7) Basophils (%) (Auto) 1.6 % (0.3-1.4) Nucleated RBC Relative Count (auto) 0.0 /100WBC Neutrophils # (Auto) 7.0 K/uL (2.0-7.4) Lymphocytes # (Auto) 1.9 K/uL (1.3-3.6) Monocytes # (Auto) 0.5 K/uL (0.3-1.0) Eosinophils # (Auto) 0.4 K/uL (0.0-0.5) Basophils # (Auto) 0.2 K/uL (0.0-0.1) Nucleated RBC Absolute Count (auto) 0.00 K/uL D-Dimer Quantitative (PE/DVT) 1.14 ug/ml (0-0.50) Sodium Level 138 mmol/L (137-145) Potassium Level 4.1 mmol/L (3.5-5.0) Chloride Level 111 mmol/L (98-107) Carbon Dioxide Level 23 mmol/L (22-30) Blood Urea Nitrogen 7 mg/dl (9-21) Creatinine 1.10 mg/dl (0.66-1.25) Glomerular Filtration Rate Calc > 60.0 Random Glucose 207 mg/dl (75-110) Lactate 1.7 mmol/L (0.7-2.1) Calcium Level 8.3 mg/dl (8.4-10.2) Total Bilirubin 0.4 mg/dl (0.2-1.3) Aspartate Amino Transf (AST/SGOT) 20 U/L (0-35) Alanine Aminotransferase (ALT/SGPT) 33 U/L (0-56) Alkaline Phosphatase 157 U/L (0-126) Troponin I 0.074 ng/ml Total Protein 5.6 g/dl (6.3-8.2) Albumin 3.1 g/dl (3.5-5.0) B-Type Natriuretic Peptide 248 pg/ml (0-100) Chemistry Test 01/07/19 23:25 01/07/19 23:36 White Blood Count 10.0 k/uL (4.5-11.0) Red Blood Count 5.02 M/uL (4.00-5.60) Hemoglobin 15.2 g/dL (14.0-18.0) Hematocrit 45.3 % (42.0-52.0) Mean Corpuscular Volume 90.3 fL (80.0-96.0) Mean Corpuscular Hemoglobin 30.3 pg (26.0-33.0) Mean Corpuscular Hemoglobin Concent 33.6 g/dL (32.0-36.0) Red Cell Distribution Width 14.0 % (11.5-14.5) Platelet Count 264 K/uL (150-450) Mean Platelet Volume 8.5 fL (7.2-11.1) Neutrophils (%) (Auto) 69.7 % (39.4-72.5) Lymphocytes (%) (Auto) 19.2 % (17.6-49.6) Monocytes (%) (Auto) 5.3 % (4.1-12.4) Eosinophils (%) (Auto) 4.2 % (0.4-6.7) Basophils (%) (Auto) 1.6 % (0.3-1.4) Nucleated RBC Relative Count (auto) 0.0 /100WBC Neutrophils # (Auto) 7.0 K/uL (2.0-7.4) Lymphocytes # (Auto) 1.9 K/uL (1.3-3.6) Monocytes # (Auto) 0.5 K/uL (0.3-1.0) Eosinophils # (Auto) 0.4 K/uL (0.0-0.5) Basophils # (Auto) 0.2 K/uL (0.0-0.1) Nucleated RBC Absolute Count (auto) 0.00 K/uL D-Dimer Quantitative (PE/DVT) 1.14 ug/ml (0-0.50) Glomerular Filtration Rate Calc > 60.0 Lactate 1.7 mmol/L (0.7-2.1) Calcium Level 8.3 mg/dl (8.4-10.2) Total Bilirubin 0.4 mg/dl (0.2-1.3) Aspartate Amino Transf (AST/SGOT) 20 U/L (0-35) Alanine Aminotransferase (ALT/SGPT) 33 U/L (0-56) Alkaline Phosphatase 157 U/L (0-126) Troponin I 0.074 ng/ml Total Protein 5.6 g/dl (6.3-8.2) Albumin 3.1 g/dl (3.5-5.0) B-Type Natriuretic Peptide 248 pg/ml (0-100) Coagulation Test 01/07/19 23:25 D-Dimer Quantitative (PE/DVT) 1.14 ug/ml EKG/Imaging EKG Interpretation 12 lead EK Rhythm: Sinus tachycardia, rate 104 [place]: normal QRS:, Q waves anteriorly and laterally, comparison to previous EKG 12/25/18, no overall significant change ST segments: normal Imaging X-ray: Two-view chest x-ray was obtained. I viewed the images myself on the PACS system. My interpretation of the images is: New right lower lobe infiltrate. Her to previous film from 12/25/18. The radiologist interpretation had no clinically significant variation from this interpretation. Results: Old CT scan dated 12/25/18 CT scan of the CTA pulmonary and gram was obtained. The results of the study are CT angiogram chest with contrast Indication: Short of breath. Comparison: None available. Technique: Axial CT images are obtained through the chest after administration of 75 mL Isovue 370 IV contrast. Reformatted coronal and sagittal images were reviewed as well as coronal MIP images. One of the following dose optimization techniques was utilized in the performance of this exam: automated exposure control; adjustment of the mA and/or kV according to the patient's size; or use of an iterative reconstruction technique. Specific details can be referenced in the facility's radiology CT exam operational policy. FINDINGS: No evidence of filling defect within the pulmonary vasculature to suggest pulmonary embolus. The heart is normal size without pericardial effusion. Coronary artery calcifications are present. The aorta shows mild atherosclerotic calcific changes without aneurysm or dissection. The mediastinum and hilar regions show a few small lymph nodes without enlarged lymph nodes or abnormal density. Lungs show very small left pleural effusion with minimal atelectasis. No right effusion. No consolidations, pneumothorax or discrete nodule. No focal interstitial opacities. Airways are clear. Bony structures show no acute fractures. Old right ninth and 10th rib fractures. Posttraumatic changes from previous injury of the proximal left humerus. No aggressive bony lesions. Degenerative change seen spine. Chest wall shows no enlarged axillary lymph nodes or masses. Limited views of the upper abdomen are unremarkable. IMPRESSION: 1. No evidence of pulmonary embolus. 2. Very small left pleural effusion with minimal atelectasis. 3. Other chronic findings as above. The study was read by the radiologist. I viewed the images myself on the PACS system. ED Course/Re-evaluation Clinical Indication for ER IV: Hydration, IV Access ED Course Patient was admitted to an examination room. H&P was done. The differential diagnoses was considered. Patient with productive cough and fever. He got nearly all better after his last course of antibiotics from an ER visit on 12/25/18. She also had a CTA which was negative for pulmonary embolism. Patient now returns with increasing symptoms. His chest x-ray shows an infiltrate in the right lower lobe. He is given Rocephin 1 g IV and Levaquin 500 mg orally. Patient be discharged home on Levaquin 500 mg by mouth 4 times a day for 6 days. Patient's advised to follow-up with his primary care if unimproved in 3-5 days. Patient's EKG shows no acute ischemic changes. There are new-appearing Q waves in the V leads which were not present on previous EKGs. He has a chronically elevated troponin. Going back many years. He had a stress echo by Dr. Reddy 2014. Decision to Disposition Date: Jan 08, 2019 Decision to Disposition Time: 00:36 Depart Departure Latest Vital Signs Vital Signs Date Time Temp Pulse Resp B/P (MAP) Pulse Ox O2 Delivery O2 Flow Rate FiO2 01/08/19 01:13 102 16 96 01/08/19 01:00 155/102 (119) 01/07/19 23:50 Room Air 01/07/19 23:16 98.0 Impression: Primary Impression: Right lower lobe pneumonia Additional Impression: Elevated troponin Condition: Improved Disposition: HOME OR SELF-CARE Referrals: SWETHA SALDIVAR DO (PCP) New Scripts Levofloxacin 500 Mg Tab (LEVAQUIN 500 MG TAB) 500 Mg Tablet 500 MG PO DAILY for infection, #6 TAB Prov: LESVIA SMITH DO 01/08/19 Patient Instructions: Bacterial Pneumonia (ED) Additional Instructions: Follow-up with her primary care doctor if unimproved in 2-3 days Problem Qualifiers Primary Impression: Right lower lobe pneumonia Pneumonia type: due to unspecified organism Qualified Codes: J18.1 - Lobar pneumonia, unspecified organism LESVIA SMITH DO Jan 07, 2019 23:11
[2019-01-07] MEDS ORDERED: NS(*) 0.9% 1000 ML BAG 1,000 ML IV ONE (23:17)
[2019-01-07] MEDS ORDERED: ALBUTEROL/IPRATROPIUM 3 ML NEB NEB ONE (23:20)
[2019-01-07 23:37] LABS: PLATELET COUNT, AUTOMATED 264 K/uL (150-450)
--- NOTE | 2019-01-07 23:49 | EKG ---
[place] [facility] [place] NANCI EDWARDS : [id number] MR: [id number] V: [id number] EXAM DATE: ORDERING PHYSICIAN: LESVIA SMITH TECHNOLOGIST: NIRANJAN Test Reason : DYSPNEA Blood Pressure : / mmHG Vent. Rate : 104 BPM Atrial Rate : 104 BPM P-R Int : 128 ms QRS Dur : 072 ms QT Int : 348 ms P-R-T Axes : 065 081 070 degrees QTc Int : 457 ms Sinus tachycardia Anterolateral infarct , age undetermined Abnormal ECG When compared with ECG of 25-DEC-2018 11:47, premature atrial complexes are no longer present Anterolateral infarct is now present Confirmed by JORDAN GAITAN ([id number]) on 01/08/2019 7:42:47 AM Referred By: Confirmed By:JORDAN GAITAN
[2019-01-08] MEDS ORDERED: LEVOFLOXACIN 500 MG TAB PO ONE (00:30)
[2019-01-08] MEDS ORDERED: cefTRIAXone 1 GM VIAL IVP ONE (00:30)
[2019-01-08] MEDS ORDERED: LEVO-85 PO (00:39)
[2019-01-08 01:00] VITALS: BP 155/102
--- NOTE | 2019-01-08 01:34 | RADIOLOGY IMAGING REPORT ---
FACILITY: [facility] PATIENT NAME: Venancio Walton : 1960 MR: [id number] V: [id number] EXAM DATE: ORDERING PHYSICIAN: LESVIA SMITH TECHNOLOGIST: Location: [facility] [place] Patient: Venancio Walton : 1960 Visit/Account:[id number] Date of Sevice: 01/07/2019 CHEST PA LAT HISTORY: Respiratory distress. History of pneumonia. COMPARISON: 12/25/2018 and studies dating to 07/16/2017. TECHNIQUE: PA and lateral views of the chest. FINDINGS: Pulmonary/pleura: There is hazy density at the right lower lung field on the frontal view. This may b e due to overlying soft tissues versus related to the trace pleural fluid or thickening along the rig ht major fissure that is appreciated on the lateral view. Left lung is clear. Costophrenic angles are excluded on the lateral view. Cardiomediastinal: Cardiac and mediastinal silhouettes are within normal limits. Bones/soft tissues: No acute osseous abnormality. There is an old left humeral diaphyseal fracture pa rtially visualized. There is mild degenerative change of the spine. There is mild degenerative change of the spine. The visible abdomen is normal. IMPRESSION: 1. New trace pleural fluid or thickening along the right major fissure. Report Dictated By: Brianna Mcclellan at 01/08/2019 1:26 AM Report E-Signed By: Brianna Mcclellan at 01/08/2019 1:30 AM WSN:[id number]
== END 2019-01-08 01:27 | disposition home or self-care (01) ==
LOC: ER 23:19
DX: J18.1 Lobar pneumonia, unspecified organism (principal); R79.89 Other specified abnormal findings of blood chemistry
CPT/HCPCS: 36415; 71046; 83605; 83880; 84484; 85025; 85379; 87040; 93005; 94640; 96361; 96374; 99284; A9270; J0696; J7030; J7620; 82040; 82247; 82310; 82374; 82435; 82565; 82947; 84075; 84132; 84155; 84295; 84450; 84460; 84520

== ENCOUNTER 2019-01-11 10:35 | Emergency (ER) | payer MEDICARE, MEDICAID ==
[~2019-01-11 10:35] MED LIST changes: +LEVO-85 PO
--- NOTE | 2019-01-11 10:37 | ER Report ---
History and Physical Time Seen By MD: 10:37 HPI/ROS CHIEF COMPLAINT: Shortness breath HISTORY OF PRESENT ILLNESS: Patient is a 58-year-old male here with complaints of shortness breath this morning upon waking. Patient was diagnosed with pneumonia bilaterally on the and was placed on Levaquin after his emergency department visit with one pill left to take tomorrow. Patient was concerned that he is increasingly more short of breath. Patient does have a history significant for asthma and reportedly had not had improvement with his albuterol inhaler prompting him to come in for evaluation. Patient is afebrile, hemodynamically stable at time of evaluation maintaining oxygen saturations of greater than 94% on room air. REVIEW OF SYSTEMS: Constitutional: No fever, no chills. Eyes: No discharge. ENT: No sore throat. Cardiovascular: No chest pain, no palpitations. Respiratory: + Shortness of breath worse with laying supine Gastrointestinal: No abdominal pain, no vomiting. Genitourinary: No hematuria. Musculoskeletal: No back pain. Skin: No rashes. Neurological: No headache. Allergies: Coded Allergies: Penicillins (Verified Allergy, Unknown, 01/11/19) aspirin (Verified Allergy, Unknown, 01/11/19) Home Meds Active Scripts Levofloxacin 500 Mg Tab (LEVAQUIN 500 MG TAB) 500 Mg Tablet, 500 MG PO DAILY for infection, #6 TAB Prov:LESVIA SMITH DO 01/08/19 Azithromycin 250 Mg Tab (AZITHROMYCIN 250 MG TAB) 250 Mg Tablet, 2 TAB PO QDAY for 14 Days, TAB Prov:BABITA BLACKWELL MD 12/25/18 Meclizine Hcl (MECLIZINE HCL) 25 Mg Tablet, 25 MG PO BID, #12 TAB 0 Refills Prov:JARRET PÉREZ THEATER SET PRODUCTION DESIGNER-BC 08/03/18 Naproxen Sodium (ALEVE) 220 Mg Capsule, 440 MG PO TID, #30 CAPSULE Prov:JOSSELIN KESSLER DO 05/20/18 Ondansetron (ZOFRAN ODT) 4 Mg Tab.rapdis, 4 MG PO Q6H PRN for NAUSEA/VOMITING, #20 TAB 0 Refills Prov:SOHA BRAXTON MD 09/12/16 Reported Medications Insulin Lispro 100 Un/Ml Vial (HUMALOG 100 U/ML VIAL) 100 Unit/1 Ml Vial, SQ DIRECTED, VIAL 11/15/16 Methotrexate Sodium (METHOTREXATE) 2.5 Mg Tablet, 1 TAB PO WEEKLY, #32 08/29/16 Insulin Glargine,Hum.rec.anlog ([place] Solostar) 300 Unit/1 Ml Insuln.pen, 1 UNIT SQ DIRECTED, #12 08/29/16 Tamsulosin Hcl (FLOMAX) 0.4 Mg Cap.er.24h, 0.4 MG PO QDAY, #20 TAKE WITH FOOD. 10/16/13 Lactobacillus Combination No.4 (PROBIOTIC) 1 Each Capsule, 1 EACH PO BID, CAPSULE 10/13/13 Metoclopramide Hcl (METOCLOPRAMIDE HCL) 5 Mg/5 Ml Solution, 5 MG PO QID PRN 10/13/13 Albuterol Sulfate 90 Mcg/Act (PROAIR HFA 90 MCG/ACT) 8.5 Gm Hfa.aer.ad, 2 PUFF IH Q4-6H PRN 10/13/13 Montelukast Sodium (SINGULAIR) 10 Mg Tablet, 1 TAB PO QDAY TAKE ONE TABLET BY MOUTH EVERY DAY 10/13/13 Aripiprazole (ABILIFY) 2 Mg Tablet, 2 MG PO QDAY, TAB 10/13/13 Folic Acid (FOLIC ACID) 1 Mg Tablet, 1 MG PO DAILY 07/18/13 Metformin Hcl (METFORMIN HCL ER) 500 Mg Tab.er.24, 2 TAB PO BID TAKE TWO TABLETS BY MOUTH TWICE DAILY WITH FOOD 07/18/13 Fenofibrate (FENOFIBRATE) 160 Mg Tablet, 160 MG PO QDAY 07/18/13 Clonazepam (KLONOPIN) 0.5 Mg Tablet, 0.5 MG PO BID 07/18/13 Topiramate (TOPAMAX) 200 Mg Tablet, 200 MG PO BID 07/18/13 Rosuvastatin Calcium (CRESTOR) 20 Mg Tablet, 20 MG PO HS 07/18/13 Olanzapine (OLANZAPINE) 2.5 Mg Tablet, 2.5 MG PO HS 07/18/13 Lisinopril (LISINOPRIL) 10 Mg Tablet, 10 MG PO QDAY 07/18/13 Atomoxetine Hcl (STRATTERA) 40 Mg Capsule, 40 MG PO DAILY 07/18/13 Hx Smoking: Yes Smoking Status: Former Smoker Exposure to Second Hand Smoke?: No Hx Substance Use Disorder: No Hx Alcohol Use: Yes Constitutional Vital Sign - Last 24 Hours 01/11/19 01/11/19 01/11/19 01/11/19 10:38 10:58 10:58 11:03 Temp 96.0 Pulse 117 108 111 Resp 17 18 18 B/P (MAP) 132/84 Pulse Ox 98 95 O2 Delivery Room Air Room Air Physical Exam General Appearance: The patient is alert, has no immediate need for airway protection and no signs of toxicity. Uncomfortable. Eyes: Pupils equal and round no pallor or injection. ENT, Mouth: Mucous membranes are moist. Respiratory: There are no retractions, lungs are clear to auscultation. Cardiovascular: Regular rate and rhythm. Gastrointestinal: Abdomen is soft and non tender, no masses, bowel sounds normal. Neurological: No focal neurological deficits Skin: Warm and dry, no rashes. Musculoskeletal: Neck is supple non tender. Extremities are nontender, nonswollen and have full range of motion. DIFFERENTIAL DIAGNOSIS: After history and physical exam differential diagnosis was considered for shortness of breath including but not limited to pulmonary infectious process, COPD, asthma, pulmonary embolus and congestive heart failure. Medical Decision Making EKG/Imaging Imaging PATIENT NAME: Venancio Walton : 1960 MR: [id number] V: [id number] EXAM DATE: ORDERING PHYSICIAN: JOSSELIN KESSLER TECHNOLOGIST: Location: [facility] - [place] Patient: Venancio Walton : 1960 Visit/Account:[id number] Date of Sevice: 01/11/2019 2 VIEWS CHEST INDICATION: cough, SOB COMPARISON: January 08, 2019. FINDINGS: Heart size within normal limits. There is no focal infiltrate or lobar consolidation. Mild nonspecific bronchial wall thickening, decreased since prior exam There is no pneumothorax or pleural effusion. IMPRESSION: 1. No acute cardiopulmonary process. 2. Mild nonspecific bronchial wall thickening, decreased since prior exam. No focal consolidation identified. ED Course/Re-evaluation ED Course Patient is a 58-year-old male here with complaints of cough, shortness of breath in the setting of a recent diagnosis of pneumonia bilaterally. Patient is on a course of Levaquin which is to be completed tomorrow. Patient is afebrile, hemodynamically stable at time of evaluation. Patient reportedly woke up this morning feeling more short of breath. Patient came to the ED for evaluation after his inhaler failed to improve his symptoms. Chest x-ray showed improvement since prior examination. Patient was given a DuoNeb treatment and started on prednisone. Patient was given prescription for 50 mg prednisone for 4 subsequent days. Return precautions provided. Close PCP follow-up recommended. Decision to Disposition Date: Jan 11, 2019 Decision to Disposition Time: 11:42 Depart Departure Latest Vital Signs Vital Signs Date Time Temp Pulse Resp B/P (MAP) Pulse Ox O2 Delivery O2 Flow Rate FiO2 01/11/19 11:03 111 18 01/11/19 10:58 95 Room Air 01/11/19 10:38 96.0 132/84 Impression: Primary Impression: Asthma exacerbation Condition: Improved Disposition: HOME OR SELF-CARE Referrals: SWETHA SALDIVAR DO (PCP) New Scripts Prednisone (PREDNISONE) 50 Mg Tablet 50 MG PO QDAY for 4 Days, #4 TAB Prov: JOSSELIN KESSLER DO 01/11/19 Patient Instructions: Asthma (ED) Additional Instructions: Please take prednisone 50 mg for the next 4 days. Please complete your course of Levaquin. You were found to have improvement on x-ray imaging of your chest. Please follow-up with your family doctor in the next 24-48 hours. Please return if you develop fevers, worsening shortness breath, chest pains. JOSSELIN KESSLER DO Jan 11, 2019 10:37
[2019-01-11] MEDS ORDERED: ALBUTEROL/IPRATROPIUM 3 ML NEB NEB ONE (10:50)
[2019-01-11] MEDS ORDERED: predniSONE 20 MG TAB PO ONE (11:15)
[2019-01-11 11:30] VITALS: BP 109/68
--- NOTE | 2019-01-11 11:38 | RADIOLOGY IMAGING REPORT ---
FACILITY: [facility] - [place] PATIENT NAME: Venancio Walton : 1960 MR: [id number] V: [id number] EXAM DATE: ORDERING PHYSICIAN: JOSSELIN KESSLER TECHNOLOGIST: Location: [facility] Patient: Venancio Walton : 1960 Visit/Account:[id number] Date of Sevice: 01/11/2019 2 VIEWS CHEST INDICATION: cough, SOB COMPARISON: January 08, 2019. FINDINGS: Heart size within normal limits. There is no focal infiltrate or lobar consolidation. Mild nonspecific bronchial wall thickening, de creased since prior exam There is no pneumothorax or pleural effusion. IMPRESSION: 1. No acute cardiopulmonary process. 2. Mild nonspecific bronchial wall thickening, decreased since prior exam. No focal consolidation carlos ntified. Report Dictated By: Rudy Canela MD at 01/11/2019 11:33 AM Report E-Signed By: Rudy Canela MD at 01/11/2019 11:34 AM WSN:[id number]
[2019-01-11] MEDS ORDERED: PRED50TA22 PO (11:42)
== END 2019-01-11 11:51 | disposition home or self-care (01) ==
LOC: ER 10:39
DX: J45.901 Unspecified asthma with (acute) exacerbation (principal); Z87.891 Personal history of nicotine dependence
CPT/HCPCS: 71046; 94640; 99283; J7512; J7620

== ENCOUNTER 2019-02-10 05:15 | Emergency (ER) | payer MEDICARE, MEDICAID ==
[~2019-02-10 05:15] MED LIST changes: +PRED50TA22 PO
--- NOTE | 2019-02-10 05:18 | ER Report ---
History and Physical Time Seen By MD: 05:17 HPI/ROS CHIEF COMPLAINT: Cough, headache HISTORY OF PRESENT ILLNESS: 58-year-old male with a history of asthma presents with 2 days of cough of greenish sputum. He now notes a headache from all the severe coughing. He's been doing. He's had no fever or chills. He denies asthma exacerbation. At this point. He was seen here back in the end of December with bilateral pneumonia. Patient notes some nausea. Patient denies chest pain. He denies leg swelling. Patient also complains of dizziness. He describes a sensation of vertigo. He denies syncope. Patient was on meclizine back in July 2018. REVIEW OF SYSTEMS: Respiratory: As above Cardiovascular: No chest pain, no palpitations. Gastrointestinal: No vomiting, no abdominal pain. Musculoskeletal: No back pain. Allergies: Coded Allergies: Penicillins (Verified Allergy, Unknown, 01/11/19) aspirin (Verified Allergy, Unknown, 01/11/19) Home Meds Active Scripts Benzonatate 100 Mg Cap (TESSALON PERLE 100 MG CAP) 100 Mg Capsule, 100 MG PO TID PRN for cough, #20 CAP Prov:LESVIA SMITH DO 02/10/19 Prednisone (PREDNISONE) 50 Mg Tablet, 50 MG PO QDAY for 4 Days, #4 TAB Prov:JOSSELIN KESSLER DO 01/11/19 Levofloxacin 500 Mg Tab (LEVAQUIN 500 MG TAB) 500 Mg Tablet, 500 MG PO DAILY for infection, #6 TAB Prov:SARAHLESVIA DO 01/08/19 Azithromycin 250 Mg Tab (AZITHROMYCIN 250 MG TAB) 250 Mg Tablet, 2 TAB PO QDAY for 14 Days, TAB Prov:BABITA BLACKWELL MD 12/25/18 Meclizine Hcl (MECLIZINE HCL) 25 Mg Tablet, 25 MG PO BID, #12 TAB 0 Refills Prov:JARRET PÉREZ CASE CONSULTANT-BC 08/03/18 Naproxen Sodium (ALEVE) 220 Mg Capsule, 440 MG PO TID, #30 CAPSULE Prov:JOSSELIN KESSLER DO 05/20/18 Ondansetron (ZOFRAN ODT) 4 Mg Tab.rapdis, 4 MG PO Q6H PRN for NAUSEA/VOMITING, #20 TAB 0 Refills Prov:SOHA BRAXTON MD 09/12/16 Reported Medications Insulin Lispro 100 Un/Ml Vial (HUMALOG 100 U/ML VIAL) 100 Unit/1 Ml Vial, SQ DIRECTED, VIAL 08/29/16 Methotrexate Sodium (METHOTREXATE) 2.5 Mg Tablet, 1 TAB PO WEEKLY, #32 08/29/16 Insulin Glargine,Hum.rec.anlog ([place]jeo Solostar) 300 Unit/1 Ml Insuln.pen, 1 UNIT SQ DIRECTED, #12 08/29/16 Tamsulosin Hcl (FLOMAX) 0.4 Mg Cap.er.24h, 0.4 MG PO QDAY, #20 TAKE WITH FOOD. 10/16/13 Lactobacillus Combination No.4 (PROBIOTIC) 1 Each Capsule, 1 EACH PO BID, CAPSULE 10/13/13 Metoclopramide Hcl (METOCLOPRAMIDE HCL) 5 Mg/5 Ml Solution, 5 MG PO QID PRN 10/13/13 Albuterol Sulfate 90 Mcg/Act (PROAIR HFA 90 MCG/ACT) 8.5 Gm Hfa.aer.ad, 2 PUFF IH Q4-6H PRN 10/13/13 Montelukast Sodium (SINGULAIR) 10 Mg Tablet, 1 TAB PO QDAY TAKE ONE TABLET BY MOUTH EVERY DAY 10/13/13 Aripiprazole (ABILIFY) 2 Mg Tablet, 2 MG PO QDAY, TAB 10/13/13 Folic Acid (FOLIC ACID) 1 Mg Tablet, 1 MG PO DAILY 07/18/13 Metformin Hcl (METFORMIN HCL ER) 500 Mg Tab.er.24, 2 TAB PO BID TAKE TWO TABLETS BY MOUTH TWICE DAILY WITH FOOD 07/18/13 Fenofibrate (FENOFIBRATE) 160 Mg Tablet, 160 MG PO QDAY 07/18/13 Clonazepam (KLONOPIN) 0.5 Mg Tablet, 0.5 MG PO BID 07/18/13 Topiramate (TOPAMAX) 200 Mg Tablet, 200 MG PO BID 07/18/13 Rosuvastatin Calcium (CRESTOR) 20 Mg Tablet, 20 MG PO HS 07/18/13 Olanzapine (OLANZAPINE) 2.5 Mg Tablet, 2.5 MG PO HS 07/18/13 Lisinopril (LISINOPRIL) 10 Mg Tablet, 10 MG PO QDAY 07/18/13 Atomoxetine Hcl (STRATTERA) 40 Mg Capsule, 40 MG PO DAILY 07/18/13 Past Medical/Surgical History The patient has a past medical and surgical history of headaches, murmur, palpitations, angina, hypertension, hypercholesterolemia, environmental allergies, asthma, pneumonia, gastroparesis, kidney stones, right hip fracture, type II diabetes, depression, anxiety, panic disorder, ADHD, bipolar, lithotripsy, cataract removal. Reviewed Nurses Notes: Yes Old Medical Records Reviewed: Yes Hx Smoking: Yes Smoking Status: Former Smoker Exposure to Second Hand Smoke?: No Hx Substance Use Disorder: No Hx Alcohol Use: Yes Constitutional Vital Sign - Last 24 Hours 02/10/19 05:28 Temp 98.2 Pulse 102 Resp 16 B/P (MAP) 139/92 Pulse Ox 93 O2 Delivery Room Air Physical Exam General Appearance: The patient is alert, has no immediate need for airway protection and no current signs of toxicity. Vital signs stable, afebrile, pulse ox normal HEENT: Pupils equal and round no injection. TMs normal, oropharynx with moderate erythema, no exudate Respiratory: Chest is non tender, lungs are clear to auscultation. No wheezing or rails Cardiac: regular rate and rhythm Gastrointestinal: Abdomen is soft and non tender, no masses, bowel sounds normal. Musculoskeletal: Neck: Neck is supple and non tender. Extremities have full range of motion and are non tender. Skin: No rashes or lesions. DIFFERENTIAL DIAGNOSIS: After history and physical exam differential diagnosis was considered for viral URI, acute labyrinthitis, vertigo, headache, otitis media, sinusitis, bronchitis, pneumonia and asthma exacerbation Medical Decision Making Data Points Laboratory Hematology Test 02/10/19 05:56 Whole Blood Glucose 169 mg/DL (75-110) Chemistry Test 02/10/19 05:56 Whole Blood Glucose 169 mg/DL (75-110) EKG/Imaging Imaging X-ray: Two-view chest x-ray was obtained. I viewed the images myself on the PAC S system. My interpretation of the images is: There appears to be chronic scarring in the bilateral bases.. The radiologist interpretation had no clinically significant variation from this interpretation. ED Course/Re-evaluation ED Course Patient was admitted to an examination room. H&P was done. The differential diagnoses was considered. Patient with a horrible cough for 2 days productive of some green sputum. He's had no fevers and no exacerbation of his asthma. Chest x-ray is performed which shows bibasilar scarring. It's been chronic on his last previous x-ray since October. Patient's treated with meclizine 25 mg for his vertigo and dizziness. Patient's given a prescription for Tessalon to control his cough. He's also advised to take Robitussin-DM. Patient's advised Tylenol and ibuprofen as needed for his upper respiratory infection in his headache. Patient advised to follow-up with primary care if unimproved in 3-5 days. Decision to Disposition Date: Feb 10, 2019 Decision to Disposition Time: 06:04 Depart Departure Latest Vital Signs Vital Signs Date Time Temp Pulse Resp B/P (MAP) Pulse Ox O2 Delivery O2 Flow Rate FiO2 02/10/19 05:28 98.2 102 16 139/92 93 Room Air Impression: Primary Impression: Viral upper respiratory infection Additional Impressions: Cough headache Vertigo Condition: Improved Disposition: HOME OR SELF-CARE Referrals: SWETHA SALDIVAR DO (PCP) New Scripts Benzonatate 100 Mg Cap (TESSALON PERLE 100 MG CAP) 100 Mg Capsule 100 MG PO TID PRN for cough, #20 CAP Prov: LESVIA SMITH DO 02/10/19 Patient Instructions: Upper Respiratory Infection (ED), Vertigo (ED) Additional Instructions: Use Tylenol and ibuprofen to treat her headache Take Tessalon [place] pressure cough Also take Robitussin-DM Use some meclizine 25 mg 3 times daily to control vertigo Follow-up with your primary care if unimproved in 3-5 days. Problem Qualifiers LESVIA SMITH DO Feb 10, 2019 05:18
[2019-02-10] MEDS ORDERED: MECLIZINE HCL 25 MG TAB PO ONE (05:35)
[2019-02-10 06:00] VITALS: BP 117/62
[2019-02-10] MEDS ORDERED: BENZ100C4 PO (06:07)
--- NOTE | 2019-02-10 06:09 | RADIOLOGY IMAGING REPORT ---
FACILITY: PATIENT NAME: Venancio Walton : 1960 MR: [id number] V: [id number] EXAM DATE: ORDERING PHYSICIAN: LESVIA SMITH TECHNOLOGIST: Location: [facility] - [place] Patient: Venancio Walton : 1960 Visit/Account:[id number] Date of Sevice: 02/10/2019 TWO VIEW CHEST 02/10/2019 5:35 AM. INDICATION: Cough, dyspnea. COMPARISON: 01/11/2019 and previous. FINDINGS: Lungs are well-expanded. No focal consolidation. Mild blunting costophrenic sulci. Heart size is normal. IMPRESSION: Suspected small pleural effusions, otherwise nonacute. Report Dictated By: Ron Silverman MD at 02/10/2019 6:01 AM Report E-Signed By: Ron Silverman MD at 02/10/2019 6:05 AM WSN:[id number]
== END 2019-02-10 06:20 | disposition home or self-care (01) ==
LOC: ER 05:33
DX: J06.9 Acute upper respiratory infection, unspecified (principal); R51 Headache; R05 Cough; R42 Dizziness and giddiness; R06.00 Dyspnea, unspecified
CPT/HCPCS: 36416; 71046; 82948; 99283; J8597

== ENCOUNTER 2019-02-20 07:09 | Emergency (ER) | payer MEDICARE, MEDICAID ==
[~2019-02-20 07:09] MED LIST changes: +BENZ100C4 PO
--- NOTE | 2019-02-20 07:11 | ER Report ---
History and Physical Time Seen By MD: 07:11 HPI/ROS CHIEF COMPLAINT: Cough, shortness of breath HISTORY OF PRESENT ILLNESS: Patient is a 58-year-old male with a history of asthma here with complaints of increasing dyspnea, cough productive of green sputum starting yesterday. Patient has been using his albuterol inhaler initially with improvement of symptoms however this morning patient took his inhaler approximately one half hour prior to arrival without relief. Patient does complain of myalgias, arthralgias, general malaise. He is tolerating oral intake with decreased appetite. Patient did have the flu vaccination this year. Patient admits to nausea without vomiting. REVIEW OF SYSTEMS: Constitutional: No fever, + chills. Eyes: No discharge. ENT: No sore throat. Cardiovascular: No chest pain, no palpitations. Respiratory: + cough, + shortness of breath. Gastrointestinal: No abdominal pain, no vomiting. + Nausea Genitourinary: No hematuria. Musculoskeletal: No back pain. + Myalgias and arthralgias Skin: No rashes. Neurological: No headache. Allergies: Coded Allergies: Penicillins (Verified Allergy, Unknown, 01/11/19) aspirin (Verified Allergy, Unknown, 01/11/19) Home Meds Active Scripts Azithromycin (ZITHROMAX) 250 Mg Tablet, 1 TAB PO QDAY for 4 Days, #4 TAB Prov:JOSSELIN KESSLER DO 02/20/19 Prednisone (PREDNISONE) 50 Mg Tablet, 50 MG PO QDAY for 4 Days, #4 TAB Prov:KESSLERJOSSELIN S DO 02/20/19 Prednisone (PREDNISONE) 50 Mg Tablet, 50 MG PO QDAY for 4 Days, #4 TAB Prov:JOSSELIN KESSLER DO 01/11/19 Naproxen Sodium (ALEVE) 220 Mg Capsule, 440 MG PO TID, #30 CAPSULE Prov:JOSSELIN KESSLER DO 05/20/18 Ondansetron (ZOFRAN ODT) 4 Mg Tab.rapdis, 4 MG PO Q6H PRN for NAUSEA/VOMITING, #20 TAB 0 Refills Prov:SOHA BRAXTON MD 09/12/16 Reported Medications Insulin Lispro 100 Un/Ml Vial (HUMALOG 100 U/ML VIAL) 100 Unit/1 Ml Vial, SQ DIRECTED, VIAL 08/29/16 Methotrexate Sodium (METHOTREXATE) 2.5 Mg Tablet, 1 TAB PO WEEKLY, #32 08/29/16 Insulin Glargine,Hum.rec.anlog (Tousebastieno Solostar) 300 Unit/1 Ml Insuln.pen, 1 UNIT SQ DIRECTED, #12 08/29/16 Tamsulosin Hcl (FLOMAX) 0.4 Mg Cap.er.24h, 0.4 MG PO QDAY, #20 TAKE WITH FOOD. 10/16/13 Lactobacillus Combination No.4 (PROBIOTIC) 1 Each Capsule, 1 EACH PO BID, CAPSULE 10/13/13 Metoclopramide Hcl (METOCLOPRAMIDE HCL) 5 Mg/5 Ml Solution, 5 MG PO QID PRN 10/13/13 Albuterol Sulfate 90 Mcg/Act (PROAIR HFA 90 MCG/ACT) 8.5 Gm Hfa.aer.ad, 2 PUFF IH Q4-6H PRN 10/13/13 Montelukast Sodium (SINGULAIR) 10 Mg Tablet, 1 TAB PO QDAY TAKE ONE TABLET BY MOUTH EVERY DAY 10/13/13 Aripiprazole (ABILIFY) 2 Mg Tablet, 2 MG PO QDAY, TAB 10/13/13 Folic Acid (FOLIC ACID) 1 Mg Tablet, 1 MG PO DAILY 07/18/13 Metformin Hcl (METFORMIN HCL ER) 500 Mg Tab.er.24, 2 TAB PO BID TAKE TWO TABLETS BY MOUTH TWICE DAILY WITH FOOD 07/18/13 Fenofibrate (FENOFIBRATE) 160 Mg Tablet, 160 MG PO QDAY 07/18/13 Clonazepam (KLONOPIN) 0.5 Mg Tablet, 0.5 MG PO BID 07/18/13 Topiramate (TOPAMAX) 200 Mg Tablet, 200 MG PO BID 07/18/13 Rosuvastatin Calcium (CRESTOR) 20 Mg Tablet, 20 MG PO HS 07/18/13 Olanzapine (OLANZAPINE) 2.5 Mg Tablet, 2.5 MG PO HS 07/18/13 Lisinopril (LISINOPRIL) 10 Mg Tablet, 10 MG PO QDAY 07/18/13 Atomoxetine Hcl (STRATTERA) 40 Mg Capsule, 40 MG PO DAILY 07/18/13 Discontinued Scripts Benzonatate 100 Mg Cap (TESSALON PERLE 100 MG CAP) 100 Mg Capsule, 100 MG PO TID PRN for cough, #20 CAP Prov:LESVIA SMITH DO 02/10/19 Levofloxacin 500 Mg Tab (LEVAQUIN 500 MG TAB) 500 Mg Tablet, 500 MG PO DAILY for infection, #6 TAB Prov:LESVIA SMITH DO 01/08/19 Azithromycin 250 Mg Tab (AZITHROMYCIN 250 MG TAB) 250 Mg Tablet, 2 TAB PO QDAY for 14 Days, TAB Prov:BABITA BLACKWELL MD 12/25/18 Meclizine Hcl (MECLIZINE HCL) 25 Mg Tablet, 25 MG PO BID, #12 TAB 0 Refills Prov:JARRET PÉREZ [employer]UTTER- 08/03/18 Hx Smoking: Yes Smoking Status: Former Smoker Exposure to Second Hand Smoke?: No Hx Substance Use Disorder: No Hx Alcohol Use: Yes Constitutional Vital Sign - Last 24 Hours 02/20/19 02/20/19 02/20/19 02/20/19 07:12 07:25 07:25 07:30 Temp 97.5 Pulse 116 102 97 Resp 20 18 B/P (MAP) 145/103 137/104 (115) Pulse Ox 93 90 90 O2 Delivery Room Air Room Air 02/20/19 02/20/19 02/20/19 02/20/19 08:30 09:00 09:30 10:00 Pulse 107 103 108 Resp 20 33 B/P (MAP) 144/100 (115) 144/104 (117) Pulse Ox 92 95 96 93 O2 Delivery Nasal Cannula O2 Flow Rate 2.0 02/20/19 02/20/19 02/20/19 02/20/19 10:00 10:00 10:09 10:30 Pulse 107 106 107 107 Resp 18 0 18 12 B/P (MAP) 146/94 (111) 133/83 (100) Pulse Ox 93 95 02/20/19 02/20/19 02/20/19 02/20/19 11:00 11:30 12:00 12:30 Pulse 113 109 109 121 Resp 36 32 B/P (MAP) 141/88 (105) 143/100 (114) Pulse Ox 94 95 90 88 Physical Exam General Appearance: The patient is alert, has no immediate need for airway protection and no signs of toxicity. No acute distress Eyes: Pupils equal and round no pallor or injection. ENT, Mouth: Mucous membranes are moist. Respiratory: There are no retractions, lungs are clear to auscultation. Cardiovascular: Regular sinus tachycardia Gastrointestinal: Abdomen is soft and non tender, no masses, bowel sounds normal. Neurological: No focal neurological findings Skin: Warm and dry, no rashes. Musculoskeletal: Neck is supple non tender. Extremities are nontender, nonswollen and have full range of motion. DIFFERENTIAL DIAGNOSIS: After history and physical exam differential diagnosis was considered for shortness of breath including but not limited to pulmonary infectious process, COPD, asthma, pulmonary embolus and congestive heart failure. Medical Decision Making Data Points Result Diagram: 02/20/19 0722 02/20/19 0722 Laboratory Hematology Test 02/20/19 00:00 02/20/19 07:15 02/20/19 07:22 02/20/19 08:47 Blood Gas Patient Temperature 97.5 DEGREES Venous Blood pH 7.35 (7.31-7.41) Venous Blood Partial Pressure CO2 41 mmHg Venous Blood Partial Pressure O2 46 mmHg Venous Blood HCO3 22 mmol/L Venous Blood Oxygen Saturation 80 % Venous Blood Base Excess 24 mmol/L Oxygen Liters/Minute Room Influenza Virus Type A (PCR) Negative (NEGATIVE) Influenza Virus Type B (PCR) Negative (NEGATIVE) Red Blood Count 4.92 M/uL (4.00-5.60) Mean Corpuscular Volume 91.6 fL (80.0-96.0) Mean Corpuscular Hemoglobin 30.8 pg (26.0-33.0) Mean Corpuscular Hemoglobin Concent 33.6 g/dL (32.0-36.0) Red Cell Distribution Width 13.8 % (11.5-14.5) Mean Platelet Volume 9.1 fL (7.2-11.1) Neutrophils (%) (Auto) 78.0 % (39.4-72.5) Lymphocytes (%) (Auto) 13.9 % (17.6-49.6) Monocytes (%) (Auto) 6.2 % (4.1-12.4) Eosinophils (%) (Auto) 1.2 % (0.4-6.7) Basophils (%) (Auto) 0.7 % (0.3-1.4) Nucleated RBC Relative Count (auto) 0.1 /100WBC Neutrophils # (Auto) 7.0 K/uL (2.0-7.4) Lymphocytes # (Auto) 1.3 K/uL (1.3-3.6) Monocytes # (Auto) 0.6 K/uL (0.3-1.0) Eosinophils # (Auto) 0.1 K/uL (0.0-0.5) Basophils # (Auto) 0.1 K/uL (0.0-0.1) Nucleated RBC Absolute Count (auto) 0.01 K/uL Sodium Level 138 mmol/L (137-145) Potassium Level 3.6 mmol/L (3.5-5.0) Chloride Level 103 mmol/L (98-107) Carbon Dioxide Level 26 mmol/L (22-30) Blood Urea Nitrogen 9 mg/dl (9-21) Creatinine 1.00 mg/dl (0.66-1.25) Glomerular Filtration Rate Calc > 60.0 Random Glucose 359 mg/dl (75-110) Calcium Level 8.2 mg/dl (8.4-10.2) Total Bilirubin 0.7 mg/dl (0.2-1.3) Aspartate Amino Transf (AST/SGOT) 34 U/L (0-35) Alanine Aminotransferase (ALT/SGPT) 46 U/L (0-56) Alkaline Phosphatase 170 U/L (0-126) B-Type Natriuretic Peptide 401 pg/ml (0-100) Total Protein 5.9 g/dl (6.3-8.2) Albumin 3.2 g/dl (3.5-5.0) Whole Blood Glucose 300 mg/DL (75-110) Test 02/20/19 10:09 Troponin I 0.061 ng/ml Chemistry Test 02/20/19 00:00 02/20/19 07:15 02/20/19 07:22 02/20/19 08:47 Blood Gas Patient Temperature 97.5 DEGREES Venous Blood pH 7.35 (7.31-7.41) Venous Blood Partial Pressure CO2 41 mmHg Venous Blood Partial Pressure O2 46 mmHg Venous Blood HCO3 22 mmol/L Venous Blood Oxygen Saturation 80 % Venous Blood Base Excess 24 mmol/L Oxygen Liters/Minute Room Influenza Virus Type A (PCR) Negative (NEGATIVE) Influenza Virus Type B (PCR) Negative (NEGATIVE) White Blood Count 9.0 k/uL (4.5-11.0) Red Blood Count 4.92 M/uL (4.00-5.60) Hemoglobin 15.1 g/dL (14.0-18.0) Hematocrit 45.0 % (42.0-52.0) Mean Corpuscular Volume 91.6 fL (80.0-96.0) Mean Corpuscular Hemoglobin 30.8 pg (26.0-33.0) Mean Corpuscular Hemoglobin Concent 33.6 g/dL (32.0-36.0) Red Cell Distribution Width 13.8 % (11.5-14.5) Platelet Count 193 K/uL (150-450) Mean Platelet Volume 9.1 fL (7.2-11.1) Neutrophils (%) (Auto) 78.0 % (39.4-72.5) Lymphocytes (%) (Auto) 13.9 % (17.6-49.6) Monocytes (%) (Auto) 6.2 % (4.1-12.4) Eosinophils (%) (Auto) 1.2 % (0.4-6.7) Basophils (%) (Auto) 0.7 % (0.3-1.4) Nucleated RBC Relative Count (auto) 0.1 /100WBC Neutrophils # (Auto) 7.0 K/uL (2.0-7.4) Lymphocytes # (Auto) 1.3 K/uL (1.3-3.6) Monocytes # (Auto) 0.6 K/uL (0.3-1.0) Eosinophils # (Auto) 0.1 K/uL (0.0-0.5) Basophils # (Auto) 0.1 K/uL (0.0-0.1) Nucleated RBC Absolute Count (auto) 0.01 K/uL Glomerular Filtration Rate Calc > 60.0 Calcium Level 8.2 mg/dl (8.4-10.2) Total Bilirubin 0.7 mg/dl (0.2-1.3) Aspartate Amino Transf (AST/SGOT) 34 U/L (0-35) Alanine Aminotransferase (ALT/SGPT) 46 U/L (0-56) Alkaline Phosphatase 170 U/L (0-126) B-Type Natriuretic Peptide 401 pg/ml (0-100) Total Protein 5.9 g/dl (6.3-8.2) Albumin 3.2 g/dl (3.5-5.0) Whole Blood Glucose 300 mg/DL (75-110) Test 5/9/19 10:09 Troponin I 0.061 ng/ml EKG/Imaging EKG Interpretation PATIENT NAME: VENANCIO WALTON : [id number] MR: [id number] V: [id number] EXAM DATE: ORDERING PHYSICIAN: JOSSELIN KESSLER TECHNOLOGIST: STEVE Hitchcock Reason : RESPIRATORY Blood Pressure : / mmHG Vent. Rate : 101 BPM Atrial Rate : 101 BPM P-R Int : 140 ms QRS Dur : 078 ms QT Int : 378 ms P-R-T Axes : 053 052 073 degrees QTc Int : 490 ms Sinus tachycardia Otherwise normal ECG When compared with ECG of 07-JAN-2019 23:44, No significant change was found Referred By: RISHI Confirmed By: Imaging PATIENT NAME: Venancio Walton : 1960 MR: [id number] V: [id number] EXAM DATE: ORDERING PHYSICIAN: JOSSELIN KESSLER TECHNOLOGIST: [facility] [place] Patient: Venancio Walotn : 1960 Visit/Account:[id number] Date of Sevice: 02/20/2019 Study: Frontal and lateral views of the chest Indication: Preop Comparison study: February 10, 2019 Findings: PA and lateral views of the chest demonstrate no evidence of acute infiltrate. There is no evidence of pleural effusion. There is no evidence of pneumothorax. The mediastinal, cardiac, and diaphragmatic contours are unremarkable. 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 IMPRESSION: No acute cardiopulmonary abnormality identified. 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 ED Course/Re-evaluation ED Course Patient is a 58-year-old male here with complaints of increasing dyspnea since yesterday with a productive cough. Patient does have a history of asthma and reports mild to moderate relief with use of rescue inhaler. Patient was given DuoNeb, prednisone, normal saline, Zofran. Basic labs and chest x-ray were completed. Repeat DuoNeb was administered patient had significant relief of symptoms. Patient was given azithromycin for treatment of atypical community acquired pneumonia. Patient was started on prednisone for exacerbation. Prescription provided for completion of course. Patient didn't initially have a mildly elevated troponin in the indeterminate range was was repeated 3 hours after and decreased slightly. Cardiac etiology much less likely in the setting of his current symptoms. Recommend close PCP follow-up next 24-48 hours, return precautions provided. Patient voiced understanding of plan. Patient was hemodynamically stable throughout course. Decision to Disposition Date: February 20, 2019 Decision to Disposition Time: 12:22 Depart Departure Latest Vital Signs Vital Signs Date Time Temp Pulse Resp B/P (MAP) Pulse Ox O2 Delivery O2 Flow Rate FiO2 02/20/19 12:30 121 88 02/20/19 11:30 32 143/100 (114) 02/20/19 10:00 Nasal Cannula 2.0 02/20/19 07:12 97.5 Impression: Primary Impression: Asthma exacerbation Additional Impression: Hyperglycemia Condition: Improved Disposition: HOME OR SELF-CARE Referrals: SWETHA SALDIVAR DO (PCP) New Scripts Azithromycin (ZITHROMAX) 250 Mg Tablet 1 TAB PO QDAY for 4 Days, #4 TAB Prov: JOSSELIN KESSLER DO 02/20/19 Prednisone (PREDNISONE) 50 Mg Tablet 50 MG PO QDAY for 4 Days, #4 TAB Prov: JOSSELIN KESSLER DO 02/20/19 Patient Instructions: Asthma (ED) Additional Instructions: Please drink plenty of water. Please take prednisone 50 mg daily for the next 4 days, azithromycin 250 mg daily until completed. Please take your medications as prescribed. Please follow-up with your primary care provider in the next 24-48 hours. Please return promptly with worsening symptoms of shortness breath, worsening cough, fevers, inability keep down food or fluids. Please discuss with your primary care provider and possible need for cardiology follow-up as your cardiac enzymes were mildly elevated likely secondary to pulmonary disease process. Problem Qualifiers JOSSELIN KESSLER DO February 20, 2019 07:11
[2019-02-20] MEDS ORDERED: NS(*) 0.9% 1000 ML BAG 1,000 ML IV ONE (07:22)
[2019-02-20] MEDS ORDERED: predniSONE 20 MG TAB PO ONE (07:25)
[2019-02-20] MEDS ORDERED: ONDANSETRON 4 MG/2 ML VIAL IVP ONE (07:30)
[2019-02-20] MEDS: ALBUTEROL/IPRATROPIUM 3 ML NEB NEB SCH ×2 (07:36→07:59)
[2019-02-20 07:51] LABS: PLATELET COUNT, AUTOMATED 193 K/uL (150-450)
--- NOTE | 2019-02-20 08:02 | EKG ---
FACILITY: [facility] [place] PATIENT NAME: NANCI EDWARDS : [id number] MR: [id number] V: [id number] EXAM DATE: ORDERING PHYSICIAN: JOSSELIN KESSLER TECHNOLOGIST: STEVE Hitchcock Reason : RESPIRATORY Blood Pressure : / mmHG Vent. Rate : 101 BPM Atrial Rate : 101 BPM P-R Int : 140 ms QRS Dur : 078 ms QT Int : 378 ms P-R-T Axes : 053 052 073 degrees QTc Int : 490 ms Sinus tachycardia Otherwise normal ECG When compared with ECG of 07-JAN-2019 23:44, No significant change was found Confirmed by Garcia Craft ([id number] on 02/20/2019 7:57:15 PM Referred By: RISHI Confirmed By:Garcia Riggins
--- NOTE | 2019-02-20 08:44 | RADIOLOGY IMAGING REPORT ---
FACILITY: [facility] PATIENT NAME: Venancio Walton : 1960 MR: [id number] V: [id number] EXAM DATE: ORDERING PHYSICIAN: JOSSELIN KESSLER TECHNOLOGIST: Location: [facility] Patient: Venancio Walton : 1960 Visit/Account:[id number] Date of Sevice: 02/20/2019 Study: Frontal and lateral views of the chest Indication: Preop Comparison study: February 10, 2019 Findings: PA and lateral views of the chest demonstrate no evidence of acute infiltrate. There is no evidence of pleural effusion. There is no evidence of pneumothorax. The mediastinal, cardiac, and diaphragmatic contours are unremarkable. 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 IMPRESSION: No acute cardiopulmonary abnormality identified. 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 Report Dictated By: Martin Banks at 02/20/2019 8:21 AM Report E-Signed By: Martin Banks at 02/20/2019 8:39 AM WSN:[id number]
[2019-02-20] MEDS ORDERED: INSULIN ASPART 100 UN/ML VIAL SUBQ ONE (09:10)
[2019-02-20] MEDS ORDERED: AZITHROMYCIN 250 MG TAB PO ONE (09:10)
[2019-02-20] MEDS ORDERED: ALBUTEROL/IPRATROPIUM 3 ML NEB NEB ONE (09:25)
[2019-02-20] MEDS ORDERED: IBUPROFEN 800 MG TAB PO ONE (10:55)
[2019-02-20 11:30] VITALS: BP 143/100
[2019-02-20] MEDS ORDERED: PRED50TA22 PO (12:25)
[2019-02-20] MEDS ORDERED: AZIT-1 PO (12:25)
[2019-02-21] MEDS ORDERED: BENZ100C4 PO (00:21)
[2019-02-21] MEDS ORDERED: ONDA4TAB9 PO (00:21)
== END 2019-02-20 12:30 | disposition home or self-care (01) ==
LOC: ER 07:17
DX: J45.901 Unspecified asthma with (acute) exacerbation (principal); R73.9 Hyperglycemia, unspecified
CPT/HCPCS: 36416; 71046; 82803; 82948; 83880; 84484; 85025; 87502; 93005; 94640; 94644; 96361; 96374; 99284; A9270; J1815; J2405; J7030; J7512; J7620; Q0144; 82040; 82247; 82310; 82374; 82435; 82565; 82947; 84075; 84132; 84155; 84295; 84450; 84460; 84520

== ENCOUNTER 2019-02-20 21:37 | Emergency (ER) | payer MEDICARE, MEDICAID ==
[~2019-02-20 21:37] MED LIST changes: +AZIT-1 PO
[2019-02-20] MEDS ORDERED: NS(*) 0.9% 1000 ML BAG 1,000 ML IV ONE ×2 (21:57→22:20)
--- NOTE | 2019-02-20 22:01 | ER Report ---
History and Physical Time Seen By MD: 21:54 Hx. of Stated Complaint: PT REPORTS VOMITING SINCE NOON. HPI/ROS CHIEF COMPLAINT: Vomiting HISTORY OF PRESENT ILLNESS: This is a 58-year-old male. He was here earlier today for asthma exacerbation and viral syndrome. Since leaving his breathing is been much better but he started vomiting at noon and is been vomiting multiple times since and cannot keep any food or liquids down. He is feeling dehydrated and little bit dizzy. Denies any shortness of breath at this time. Denies any chest pain, but does have a little bit of chest tightness. He had this on the earlier workup as well and did have some indeterminate troponins. Denies headaches. No fevers. He is requesting some benzonatate to help with this cough which he has used in the past and had worked well for him. Allergies: Coded Allergies: Penicillins (Verified Allergy, Unknown, 02/20/19) aspirin (Verified Allergy, Unknown, 02/20/19) Home Meds Active Scripts Benzonatate 100 Mg Cap (TESSALON PERLE 100 MG CAP) 100 Mg Capsule, 100 MG PO TID PRN for COUGH, #15 CAP 0 Refills Prov:SOHA BRAXTON MD 02/21/19 Ondansetron 4 Mg Odt (ONDANSETRON 4 MG ODT) 4 Mg Tab.rapdis, 4 MG PO Q6H PRN for NAUSEA/VOMITING, #20 TAB 0 Refills Prov:SOHA BRAXTON MD 02/21/19 Azithromycin (ZITHROMAX) 250 Mg Tablet, 1 TAB PO QDAY for 4 Days, #4 TAB Prov:KESSLERJOSSELIN FRANKS S DO 02/20/19 Prednisone (PREDNISONE) 50 Mg Tablet, 50 MG PO QDAY for 4 Days, #4 TAB Prov:KESSLERJOSSELIN FRANKS S DO 02/20/19 Prednisone (PREDNISONE) 50 Mg Tablet, 50 MG PO QDAY for 4 Days, #4 TAB Prov:KESSLERJOSSELIN FRANKS S DO 01/11/19 Naproxen Sodium (ALEVE) 220 Mg Capsule, 440 MG PO TID, #30 CAPSULE Prov:JOSSELIN KESSLER DO 05/20/18 Ondansetron (ZOFRAN ODT) 4 Mg Tab.rapdis, 4 MG PO Q6H PRN for NAUSEA/VOMITING, #20 TAB 0 Refills Prov:SOHA BRAXTON MD 09/12/16 Reported Medications Insulin Lispro 100 Un/Ml Vial (HUMALOG 100 U/ML VIAL) 100 Unit/1 Ml Vial, SQ DIRECTED, VIAL 08/29/16 Methotrexate Sodium (METHOTREXATE) 2.5 Mg Tablet, 1 TAB PO WEEKLY, #32 08/29/16 Insulin Glargine,Hum.rec.anlog (Toujeo Solostar) 300 Unit/1 Ml Insuln.pen, 1 UNIT SQ DIRECTED, #12 08/29/16 Tamsulosin Hcl (FLOMAX) 0.4 Mg Cap.er.24h, 0.4 MG PO QDAY, #20 TAKE WITH FOOD. 10/16/13 Lactobacillus Combination No.4 (PROBIOTIC) 1 Each Capsule, 1 EACH PO BID, CAPSULE 10/13/13 Metoclopramide Hcl (METOCLOPRAMIDE HCL) 5 Mg/5 Ml Solution, 5 MG PO QID PRN 10/13/13 Albuterol Sulfate 90 Mcg/Act (PROAIR HFA 90 MCG/ACT) 8.5 Gm Hfa.aer.ad, 2 PUFF IH Q4-6H PRN 10/13/13 Montelukast Sodium (SINGULAIR) 10 Mg Tablet, 1 TAB PO QDAY TAKE ONE TABLET BY MOUTH EVERY DAY 10/13/13 Aripiprazole (ABILIFY) 2 Mg Tablet, 2 MG PO QDAY, TAB 10/13/13 Folic Acid (FOLIC ACID) 1 Mg Tablet, 1 MG PO DAILY 07/18/13 Metformin Hcl (METFORMIN HCL ER) 500 Mg Tab.er.24, 2 TAB PO BID TAKE TWO TABLETS BY MOUTH TWICE DAILY WITH FOOD 07/18/13 Fenofibrate (FENOFIBRATE) 160 Mg Tablet, 160 MG PO QDAY 07/18/13 Clonazepam (KLONOPIN) 0.5 Mg Tablet, 0.5 MG PO BID 07/18/13 Topiramate (TOPAMAX) 200 Mg Tablet, 200 MG PO BID 07/18/13 Rosuvastatin Calcium (CRESTOR) 20 Mg Tablet, 20 MG PO HS 07/18/13 Olanzapine (OLANZAPINE) 2.5 Mg Tablet, 2.5 MG PO HS 07/18/13 Lisinopril (LISINOPRIL) 10 Mg Tablet, 10 MG PO QDAY 07/18/13 Atomoxetine Hcl (STRATTERA) 40 Mg Capsule, 40 MG PO DAILY 07/18/13 Discontinued Scripts Benzonatate 100 Mg Cap (TESSALON PERLE 100 MG CAP) 100 Mg Capsule, 100 MG PO TID PRN for cough, #20 CAP Prov:LESVIA SMITH DO 02/10/19 Levofloxacin 500 Mg Tab (LEVAQUIN 500 MG TAB) 500 Mg Tablet, 500 MG PO DAILY for infection, #6 TAB Prov:LESVIA SMITH DO 01/08/19 Azithromycin 250 Mg Tab (AZITHROMYCIN 250 MG TAB) 250 Mg Tablet, 2 TAB PO QDAY for 14 Days, TAB Prov:BABITA BLACKWELL MD 12/25/18 Meclizine Hcl (MECLIZINE HCL) 25 Mg Tablet, 25 MG PO BID, #12 TAB 0 Refills Prov:JARRET PÉREZ [employer]AD- 08/03/18 Reviewed Nurses Notes: Yes Hx Smoking: Yes Smoking Status: Former Smoker Exposure to Second Hand Smoke?: No Hx Substance Use Disorder: No Hx Alcohol Use: Yes Constitutional Vital Sign - Last 24 Hours 02/20/19 02/20/19 02/20/19 02/20/19 21:41 21:44 21:52 22:00 Temp 98.6 Pulse 117 106 Resp 16 B/P (MAP) 139/105 139/105 (116) 135/104 (114) Pulse Ox 90 93 O2 Delivery Room Air 02/20/19 02/20/19 02/20/19 02/20/19 22:07 22:22 22:30 22:37 Pulse 102 106 100 B/P (MAP) 138/98 (111) Pulse Ox 89 87 91 02/20/19 02/20/19 02/20/19 02/20/19 22:42 23:00 23:12 23:27 Pulse 97 96 107 B/P (MAP) 157/102 (120) Pulse Ox 85 91 89 02/20/19 02/20/19 02/20/19 02/21/19 23:30 23:42 23:47 00:00 Pulse 106 107 B/P (MAP) 75/57 (63) 143/75 (97) Pulse Ox 89 92 02/21/19 02/21/19 00:02 00:17 Pulse 103 102 Pulse Ox 94 89 Intake and Output 02/20/19 02/20/19 02/21/19 15:00 23:00 07:00 Intake Total 1000 ml 1000 ml Balance 1000 ml 1000 ml Physical Exam General Appearance: The patient is alert, has no immediate need for airway protection and no current signs of toxicity. Eyes: Pupils equal and round no injection. ENT: Normal oral mucosa. Moist mucous membranes. Normal posterior oropharynx with slight erythema but no exudates or hypertrophy. Normal nasal mucosa. Normal TMs and canals. Neck: Neck is supple and non tender. Respiratory: Chest is non tender, lungs with good air movement, hint of rhonchi and wheezing on expiration but very very mild. Cardiac: regular rate and rhythm Gastrointestinal: Abdomen is soft and non tender, no masses, bowel sounds normal. Musculoskeletal: Extremities have full range of motion. Non tender. Skin: No rashes or lesions. Neuro: Alert and oriented 3. No deficits. DIFFERENTIAL DIAGNOSIS: After history and physical exam differential diagnosis was considered for a patient with viral syndrome now with some vomiting and dehydration. Medical Decision Making Data Points Result Diagram: 02/20/19214902/20/192149 Laboratory Hematology Test 02/20/19 21:50 02/20/19 22:55 Red Blood Count 4.91 M/uL (4.00-5.60) Mean Corpuscular Volume 92.2 fL (80.0-96.0) Mean Corpuscular Hemoglobin 30.8 pg (26.0-33.0) Mean Corpuscular Hemoglobin Concent 33.4 g/dL (32.0-36.0) Red Cell Distribution Width 14.3 % (11.5-14.5) Mean Platelet Volume 10.3 fL (7.2-11.1) Neutrophils (%) (Auto) 87.8 % (39.4-72.5) Lymphocytes (%) (Auto) 7.0 % (17.6-49.6) Monocytes (%) (Auto) 5.0 % (4.1-12.4) Eosinophils (%) (Auto) 0.0 % (0.4-6.7) Basophils (%) (Auto) 0.2 % (0.3-1.4) Nucleated RBC Relative Count (auto) 0.0 /100WBC Neutrophils # (Auto) 10.7 K/uL (2.0-7.4) Lymphocytes # (Auto) 0.9 K/uL (1.3-3.6) Monocytes # (Auto) 0.6 K/uL (0.3-1.0) Eosinophils # (Auto) 0.0 K/uL (0.0-0.5) Basophils # (Auto) 0.0 K/uL (0.0-0.1) Nucleated RBC Absolute Count (auto) 0.00 K/uL Sodium Level 131 mmol/L (137-145) Potassium Level 3.7 mmol/L (3.5-5.0) Chloride Level 98 mmol/L (98-107) Carbon Dioxide Level 20 mmol/L (22-30) Blood Urea Nitrogen 14 mg/dl (9-21) Creatinine 1.00 mg/dl (0.66-1.25) Glomerular Filtration Rate Calc > 60.0 Random Glucose 482 mg/dl (75-110) Calcium Level 7.8 mg/dl (8.4-10.2) Total Bilirubin 0.7 mg/dl (0.2-1.3) Aspartate Amino Transf (AST/SGOT) 26 U/L (0-35) Alanine Aminotransferase (ALT/SGPT) 42 U/L (0-56) Alkaline Phosphatase 161 U/L (0-126) Troponin I 0.064 ng/ml Total Protein 6.1 g/dl (6.3-8.2) Albumin 3.5 g/dl (3.5-5.0) Urine Color Yellow Urine Clarity Clear Urine pH 6.0 pH (4.8-9.5) Urine Specific [place] 1.017 Urine Protein 100 mg/dL (NEGATIVE) Urine Glucose (UA) 500 mg/dL (NEGATIVE) Urine Ketones Trace mg/dL (NEGATIVE) Urine Blood Small (NEGATIVE) Urine Nitrite Negative (NEGATIVE) Urine Bilirubin Negative (NEGATIVE) Urine Urobilinogen Negative mg/dL (0.2-1.9) Urine Leukocyte Esterase Negative (NEGATIVE) Urine RBC 2 /HPF (0-2/HPF) Urine WBC 1 /HPF (0-5/HPF) Urine Squamous Epithelial Cells Few /LPF (</=FEW) Urine Bacteria Negative /HPF (NONE-FEW) Urine Mucus None /HPF (NONE-FEW) Chemistry Test 02/20/19 21:50 02/20/19 22:55 White Blood Count 12.2 k/uL (4.5-11.0) Red Blood Count 4.91 M/uL (4.00-5.60) Hemoglobin 15.1 g/dL (14.0-18.0) Hematocrit 45.3 % (42.0-52.0) Mean Corpuscular Volume 92.2 fL (80.0-96.0) Mean Corpuscular Hemoglobin 30.8 pg (26.0-33.0) Mean Corpuscular Hemoglobin Concent 33.4 g/dL (32.0-36.0) Red Cell Distribution Width 14.3 % (11.5-14.5) Platelet Count 208 K/uL (150-450) Mean Platelet Volume 10.3 fL (7.2-11.1) Neutrophils (%) (Auto) 87.8 % (39.4-72.5) Lymphocytes (%) (Auto) 7.0 % (17.6-49.6) Monocytes (%) (Auto) 5.0 % (4.1-12.4) Eosinophils (%) (Auto) 0.0 % (0.4-6.7) Basophils (%) (Auto) 0.2 % (0.3-1.4) Nucleated RBC Relative Count (auto) 0.0 /100WBC Neutrophils # (Auto) 10.7 K/uL (2.0-7.4) Lymphocytes # (Auto) 0.9 K/uL (1.3-3.6) Monocytes # (Auto) 0.6 K/uL (0.3-1.0) Eosinophils # (Auto) 0.0 K/uL (0.0-0.5) Basophils # (Auto) 0.0 K/uL (0.0-0.1) Nucleated RBC Absolute Count (auto) 0.00 K/uL Glomerular Filtration Rate Calc > 60.0 Calcium Level 7.8 mg/dl (8.4-10.2) Total Bilirubin 0.7 mg/dl (0.2-1.3) Aspartate Amino Transf (AST/SGOT) 26 U/L (0-35) Alanine Aminotransferase (ALT/SGPT) 42 U/L (0-56) Alkaline Phosphatase 161 U/L (0-126) Troponin I 0.064 ng/ml Total Protein 6.1 g/dl (6.3-8.2) Albumin 3.5 g/dl (3.5-5.0) Urine Color Yellow Urine Clarity Clear Urine pH 6.0 pH (4.8-9.5) Urine Specific [place] 1.017 Urine Protein 100 mg/dL (NEGATIVE) Urine Glucose (UA) 500 mg/dL (NEGATIVE) Urine Ketones Trace mg/dL (NEGATIVE) Urine Blood Small (NEGATIVE) Urine Nitrite Negative (NEGATIVE) Urine Bilirubin Negative (NEGATIVE) Urine Urobilinogen Negative mg/dL (0.2-1.9) Urine Leukocyte Esterase Negative (NEGATIVE) Urine RBC 2 /HPF (0-2/HPF) Urine WBC 1 /HPF (0-5/HPF) Urine Squamous Epithelial Cells Few /LPF (</=FEW) Urine Bacteria Negative /HPF (NONE-FEW) Urine Mucus None /HPF (NONE-FEW) Urinalysis Test 02/20/19 22:55 Urine Color Yellow Urine Clarity Clear Urine pH 6.0 pH (4.8-9.5) Urine Specific [place] 1.017 Urine Protein 100 mg/dL (NEGATIVE) Urine Glucose (UA) 500 mg/dL (NEGATIVE) Urine Ketones Trace mg/dL (NEGATIVE) Urine Blood Small (NEGATIVE) Urine Nitrite Negative (NEGATIVE) Urine Bilirubin Negative (NEGATIVE) Urine Urobilinogen Negative mg/dL (0.2-1.9) Urine Leukocyte Esterase Negative (NEGATIVE) Urine RBC 2 /HPF (0-2/HPF) Urine WBC 1 /HPF (0-5/HPF) Urine Squamous Epithelial Cells Few /LPF (</=FEW) Urine Bacteria Negative /HPF (NONE-FEW) Urine Mucus None /HPF (NONE-FEW) EKG/Imaging EKG Interpretation 12 lead EKG: Rhythm: Sinus tachycardia, rate 101 [place]: normal QRS: normal ST segments: normal Imaging Not repeated because the patient is unchanged other than the vomiting and imaging was done earlier today. ED Course/Re-evaluation Clinical Indication for ER IV: Hydration, IV Access ED Course Labs were obtained and did show mild hyponatremia as well as slight dehydration. Troponin was also obtained which was negative. EKG was unremarkable and unchanged. Gave him a couple liters of IV fluids and he felt much better. I'll some Zofran for nausea. Also provided benzonatate for his cough. Decision to Disposition Date: February 21, 2019 Decision to Disposition Time: 00:19 Depart Departure Latest Vital Signs Vital Signs Date Time Temp Pulse Resp B/P (MAP) Pulse Ox O2 Delivery O2 Flow Rate FiO2 02/21/19 00:17 102 89 02/21/19 00:00 143/75 (97) 02/20/19 21:41 98.6 16 Room Air Impression: Primary Impression: Nausea & vomiting Additional Impression: Viral syndrome Condition: Improved Disposition: HOME OR SELF-CARE Referrals: SWETHA SALDIVAR DO (PCP) New Scripts Benzonatate 100 Mg Cap (TESSALON PERLE 100 MG CAP) 100 Mg Capsule 100 MG PO TID PRN for COUGH, #15 CAP 0 Refills Prov: SOHA BRAXTON MD 02/21/19 Ondansetron 4 Mg Odt (ONDANSETRON 4 MG ODT) 4 Mg Tab.rapdis 4 MG PO Q6H PRN for NAUSEA/VOMITING, #20 TAB 0 Refills Prov: SOHA BRAXTON MD 02/21/19 Patient Instructions: Acute Nausea and Vomiting (ED), Viral Syndrome (ED) Additional Instructions: Keep taking the medicines prescribed earlier today. Take Zofran 4mg, one every 6 hours as needed for nausea or vomiting. Benzonatate 100mg every 8 hours as needed for cough. Rest and increase fluid intake. Problem Qualifiers Primary Impression: Nausea & vomiting Vomiting type: unspecified Vomiting Intractability: non-intractable Qualified Codes: R11.2 - Nausea with vomiting, unspecified SOHA BRAXTON MD February 20, 2019 22:01
[2019-02-20] MEDS ORDERED: ONDANSETRON 4 MG/2 ML VIAL IVP ONE (22:20)
[2019-02-20] MEDS ORDERED: BENZONATATE 100 MG CAP PO ONE (22:20)
[2019-02-20 22:34] LABS: PLATELET COUNT, AUTOMATED 208 K/uL (150-450)
[2019-02-21] VITALS: BP 143/75
[2019-02-21] MEDS ORDERED: clonazePAM 1 MG TAB PO ONE (00:20)
[2019-02-21] MEDS ORDERED: ONDA4TAB9 PO (00:21)
[2019-02-21] MEDS ORDERED: BENZ100C4 PO (00:21)
[2019-02-21] MEDS ORDERED: ONDANSETRON 4 MG ODT TH SL ONE (00:25)
--- NOTE | 2019-02-21 00:28 | EKG ---
FACILITY: [facility] PATIENT NAME: NANCI EDWARDS : [id number] MR: [id number] V: [id number] EXAM DATE: ORDERING PHYSICIAN: SOHA BRAXTON TECHNOLOGIST: JONEL Hitchcock Reason : CHEST TIGHTNESS Blood Pressure : / mmHG Vent. Rate : 101 BPM Atrial Rate : 101 BPM P-R Int : 140 ms QRS Dur : 076 ms QT Int : 376 ms P-R-T Axes : 041 042 061 degrees QTc Int : 487 ms Sinus tachycardia Otherwise normal ECG When compared with ECG of 20-FEB-2019 07:30, No significant change was found Confirmed by Garcia Craft ([id number]) on 02/21/2019 7:49:07 AM Referred By: Confirmed By:Garcia Riggins
== END 2019-02-21 00:32 | disposition home or self-care (01) ==
LOC: ER 21:50
DX: B34.9 Viral infection, unspecified (principal); E86.0 Dehydration; E87.1 Hypo-osmolality and hyponatremia
CPT/HCPCS: 81001; 84484; 85025; 93005; 96361; 96374; 99284; A9270; J2405; J7030; Q0162; 82040; 82247; 82310; 82374; 82435; 82565; 82947; 84075; 84132; 84155; 84295; 84450; 84460; 84520; S0119

== ENCOUNTER 2019-02-24 14:45 | Outpatient (RCR) | payer MEDICARE, MEDICAID ==
--- NOTE | 2019-01-02 07:43 | PT INITIAL EVALUATION ---
MEDICAL DIAGNOSIS: Left Shoulder Pain TREATMENT DIAGNOSIS: Left Shoulder RTC Tear, Weakness, Multidirectional Glenohumeral Instability DATE OF ONSET: 01/01/19 SUBJECTIVE: Venancio is a 58 year old male presenting to physical therapy for rehabilitation of his left shoulder following pain and injury following a fall in April 2018 resulting in a fracture of his L humerus below the neck. Following the fall pt was splinted in a sling untill August 2018 for healing by approximation and following had physical therapy at [facility] for progressive return to function. Pt reports that he made little gains and that he would like to seek therapy elsewhere. Additionally pt recently was ill with pneumonia and had decreased activity for 3 weeks resulting in stiffening of the shoulder. Pt would like to get back to walking regularly for his diabetes with light UE weight lifting. 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 Pt reports that currently his arm feels tight but not super painful. REHAB PROBLEM LIST: Increased Pain Decreased ROM Decreased Strength Decreased Endurance Decreased Function Decreased ADL's PREVIOUS MEDICAL HISTORY: See EMR OCCUPATION: PhD Student at OBJECTIVE: Pt presents with L arm cradled to body in internal rotation. Posture: Rounded thoracic posture with forward head ROM: UE ROM (L,R): Wrist: WFL B, Elbow: flexion: 138, 142, ext: -24, 1, shoulder: flexion: 55, 138, abd: 42, 5, ER: 24, 4, IR: L4 level, T6 level. Strength: UE MMT (L,R): Wrist: 5/5 B all motions, Elbow: flexion: 4/5, 5/5, extension: 3+/5, 4/5. Shoulder: flexion: 3-/5, 4+/5, abd: 3-/5, 5/5, ER: 1/5, 4/5, IR: 4/5, 4+/5, ext: 4+/5, 5/5. Palpation: Left humeral head is located 2 fingers width inferiorly to the AC joint with sulcus present. Sensation: Pt reports no numbness or tingling in fingers or arm on the L side. Special Tests: Left Shoulder Testing: IR lift off (+), Drop arm: (+), Empty can (+)pain, Anterior apprehension (+) ASSESSMENT: Venancio presents with signs and symptoms consistent with L shoulder RTC tear with possible rupture, weakness, and multidirectional instability. Physical therapy is indicated to improve functional ROM and strength to address the above listed deficits to improve pt ability to perform ADL's and recreational activities. It is my impression that pt will likely benefit from MRI of the L shoulder to adequately assess the degree of RTC involvement and if surgical intervention is indicated. PT will be performed for 1-2 weeks to assess if shoulder ER activation is present prior to referral for imaging. Short Term Goals In 2 weeks pt will gain full AROM of L elbow for improved function with ADL's. In 4 weeks pt will improve L shoulder AROM to full for improved function with ADL's. In 8 weeks pt will improve L shoulder strength to equal to the contralateral limb for improved function with ADL's. In 8 weeks pt will be able to return to walking and lifting recreational activities for management of diabetes without pain. Patient's Goals Improve function of L shoulder and return to walking and weight lifting. PLAN: Patient to be seen for Manual Therapy/STM/MET Strengthening/condition Ice/Heat Range of Motion Spinal Stabilization Ultrasound Stretching Iontophoresis Neuromuscular Re-ed Closed Chain Program Electrical Stim Posture/Body mechanics Gait Trg/Balance Trg Home Exercise Program Mech./Manual Traction Therapeutic Activities 3x/Week for 6 Weeks If you have any questions, comments, or concerns about this report or plan, please contact me at . Thank you, Janet Alves, PT, DPT, CLT MTDD
--- NOTE | 2019-02-21 09:41 | PT PLAN OF CARE ---
Physician: Panda Askew MD Patient is being seen: 2x/Week Therapist: Janet Alves, PT, DPT, CLT Medical Diagnosis: Left Shoulder Pain Treatment Diagnosis: Left Shoulder RTC Tear, Weakness, Multidirectional Glenohumeral Instability Date of Onset: 01/01/19 Date of Initial Evaluation: 01/01/19 Date patient was last seen: 02/21/19 Number of treatments: 10 Number of cancellations/No shows: 0 INTERVENTIONS: Manual Therapy/STM/MET Strengthening/condition Ice/Heat Range of Motion Spinal Stabilization Ultrasound Stretching Iontophoresis Neuromuscular Re-ed Closed Chain Program Electrical Stim Posture/Body mechanics Gait Trg/Balance Trg Home Exercise Program Mech./Manual Traction Therapeutic Activities GOALS: In 2 weeks pt will gain full AROM of L elbow for improved function with ADL's. MET In 4 weeks pt will improve L shoulder AROM to full for improved function with ADL's. On Hold In 8 weeks pt will improve L shoulder strength to equal to the contralateral limb for improved function with ADL's. On Hold In 8 weeks pt will be able to return to walking and lifting recreational activities for management of diabetes without pain. On Hold PATIENT'S GOAL: Improve function of L shoulder and return to walking and weight lifting. Status of Patient's Goals: 1/4 MET, 3/4 On Hold Patient Compliance: Good Prognosis: Fair Reasons for continuing therapy: Venancio shows improved elbow active and passive ROM as long as shoulder is in a stabilized position with decreased shoulder and elbow pain overall. Following little progress on L shoulder ROM, pt was referred back to orthopaedic MD for assessment. Pt underwent X-ray revealing poor healing of previous humeral fracture. No MRI assessment was made at this time of the shoulder joint regarding likely damaged tissue with frequent subluxation. Pt is to wear a sling immobilizer over the next month to attempt healing of the L shoulder while having PT management of subluxation with taping stabilization as well as brace application. Following 1 MO pt is to be re-assessed by MD for possible need of surgical intervention. Posture: Rounded thoracic posture with forward head ROM: UE ROM (L,R): Wrist: WFL B, Elbow: flexion: 142, 142, ext: 0, 1, shoulder: flexion: 55, 138, abd: 42, 5, ER: 24, 4, IR: L4 level, T6 level. Strength: UE MMT (L,R): Wrist: 5/5 B all motions, Elbow: flexion: 4/5, 5/5, extension: 3+/5, 4/5. Shoulder: flexion: 3-/5, 4+/5, abd: 3-/5, 5/5, ER: 1/5, 4/5, IR: 4/5, 4+/5, ext: 4+/5, 5/5. Palpation: Left humeral head is located 2 fingers width inferiorly to the AC joint with sulcus present. Special Tests: Left Shoulder Testing: IR lift off (+), Drop arm: (+), Empty can (+)pain, Anterior apprehension (+) If you have any questions or concerns, please feel free to contact me at [phone]. Thank you, Janet Alves, PT, DPT, CLT [place]
[~2019-02-24 14:45] MED LIST changes: +ONDA4TAB9 PO
[2019-02-26] MEDS ORDERED: PRED20TA6 PO (01:48)
[2019-03-11] MEDS ORDERED: PRED50TA22 PO (22:34)
[2019-03-11] MEDS ORDERED: DOXY50SY2 PO (22:34)
== END 2019-04-01 ==
LOC: PT 14:45
PROVIDERS: ATTEND Family Medicine
DX: M25.512 Pain in left shoulder (principal); M62.81 Muscle weakness (generalized)
CPT/HCPCS: 97162

== ENCOUNTER 2019-02-25 23:24 | Emergency (ER) | payer MEDICARE, MEDICAID ==
--- NOTE | 2019-02-25 23:26 | ER Report ---
History and Physical Time Seen By MD: 23:26 HPI/ROS CHIEF COMPLAINT: Shortness of breath, chest tightness HISTORY OF PRESENT ILLNESS: 58-year-old male with a history of asthma, recent ER visits for exacerbation on 02/20 and 02/21. Patient with treated with prednisone and Zithromax. Tonight he had a cast removed from his left arm. He had shoul uvaldo surgery. Supposed to be wearing a splint to support it. He developed some chest tightness and shortness of breath. REVIEW OF SYSTEMS: Respiratory: As above Cardiovascular: As above Gastrointestinal: No vomiting, no abdominal pain. Musculoskeletal: No back pain. Allergies: Coded Allergies: Penicillins (Verified Allergy, Unknown, 02/25/19) aspirin (Verified Allergy, Unknown, 02/25/19) Home Meds Active Scripts Prednisone (PREDNISONE) 20 Mg Tablet, 20 MG PO DAILY for reduce lung inflammation, #9 TAB 2 by mouth daily for 3 days then 1 by mouth daily for 3 days Prov:LESVIA SMITH DO 02/26/19 Benzonatate 100 Mg Cap (TESSALON PERLE 100 MG CAP) 100 Mg Capsule, 100 MG PO TID PRN for COUGH, #15 CAP 0 Refills Prov:SOHA BRAXTON MD 02/21/19 Ondansetron 4 Mg Odt (ONDANSETRON 4 MG ODT) 4 Mg Tab.rapdis, 4 MG PO Q6H PRN for NAUSEA/VOMITING, #20 TAB 0 Refills Prov:SOHA BRAXTON MD 02/21/19 Naproxen Sodium (ALEVE) 220 Mg Capsule, 440 MG PO TID, #30 CAPSULE Prov:JOSSELIN KESSLER DO 05/20/18 Ondansetron (ZOFRAN ODT) 4 Mg Tab.rapdis, 4 MG PO Q6H PRN for NAUSEA/VOMITING, #20 TAB 0 Refills Prov:SOHA BRAXTON MD 09/12/16 Reported Medications Insulin Lispro 100 Un/Ml Vial (HUMALOG 100 U/ML VIAL) 100 Unit/1 Ml Vial, SQ DIRECTED, VIAL 08/29/16 Methotrexate Sodium (METHOTREXATE) 2.5 Mg Tablet, 1 TAB PO WEEKLY, #32 08/29/16 Insulin Glargine,Hum.rec.anlog (Rebecca Madrid) 300 Unit/1 Ml Insuln.pen, 1 UNIT SQ DIRECTED, #12 08/29/16 Tamsulosin Hcl (FLOMAX) 0.4 Mg Cap.er.24h, 0.4 MG PO QDAY, #20 TAKE WITH FOOD. 10/16/13 Lactobacillus Combination No.4 (PROBIOTIC) 1 Each Capsule, 1 EACH PO BID, CAPSULE 10/13/13 Metoclopramide Hcl (METOCLOPRAMIDE HCL) 5 Mg/5 Ml Solution, 5 MG PO QID PRN 10/13/13 Albuterol Sulfate 90 Mcg/Act (PROAIR HFA 90 MCG/ACT) 8.5 Gm Hfa.aer.ad, 2 PUFF IH Q4-6H PRN 10/13/13 Montelukast Sodium (SINGULAIR) 10 Mg Tablet, 1 TAB PO QDAY TAKE ONE TABLET BY MOUTH EVERY DAY 10/13/13 Aripiprazole (ABILIFY) 2 Mg Tablet, 2 MG PO QDAY, TAB 10/13/13 Folic Acid (FOLIC ACID) 1 Mg Tablet, 1 MG PO DAILY 07/18/13 Metformin Hcl (METFORMIN HCL ER) 500 Mg Tab.er.24, 2 TAB PO BID TAKE TWO TABLETS BY MOUTH TWICE DAILY WITH FOOD 07/18/13 Fenofibrate (FENOFIBRATE) 160 Mg Tablet, 160 MG PO QDAY 07/18/13 Clonazepam (KLONOPIN) 0.5 Mg Tablet, 0.5 MG PO BID 07/18/13 Topiramate (TOPAMAX) 200 Mg Tablet, 200 MG PO BID 07/18/13 Rosuvastatin Calcium (CRESTOR) 20 Mg Tablet, 20 MG PO HS 07/18/13 Olanzapine (OLANZAPINE) 2.5 Mg Tablet, 2.5 MG PO HS 07/18/13 Lisinopril (LISINOPRIL) 10 Mg Tablet, 10 MG PO QDAY 07/18/13 Atomoxetine Hcl (STRATTERA) 40 Mg Capsule, 40 MG PO DAILY 07/18/13 Discontinued Scripts Azithromycin (ZITHROMAX) 250 Mg Tablet, 1 TAB PO QDAY for 4 Days, #4 TAB Prov:KESSLER,JOSSELIN S DO 02/20/19 Prednisone (PREDNISONE) 50 Mg Tablet, 50 MG PO QDAY for 4 Days, #4 TAB Prov:KESSLER,JOSSELIN S DO 02/20/19 Prednisone (PREDNISONE) 50 Mg Tablet, 50 MG PO QDAY for 4 Days, #4 TAB Prov:JOSSELIN KESSLER DO 01/11/19 Benzonatate 100 Mg Cap (TESSALON PERLE 100 MG CAP) 100 Mg Capsule, 100 MG PO TID PRN for cough, #20 CAP Prov:LESVIA SMITH DO 02/10/19 Levofloxacin 500 Mg Tab (LEVAQUIN 500 MG TAB) 500 Mg Tablet, 500 MG PO DAILY for infection, #6 TAB Prov:LESVIA SMITH DO 01/08/19 Azithromycin 250 Mg Tab (AZITHROMYCIN 250 MG TAB) 250 Mg Tablet, 2 TAB PO QDAY for 14 Days, TAB Prov:BABITA BLACKWELL MD 12/25/18 Meclizine Hcl (MECLIZINE HCL) 25 Mg Tablet, 25 MG PO BID, #12 TAB 0 Refills Prov:JARRET PÉREZ COMMERCIAL [employer]IST LETTERING-BC 08/03/18 Past Medical/Surgical History The patient has a past medical and surgical history of headaches, murmur, palpitations, angina, hypertension, hypercholesterolemia, environmental allergies, asthma, pneumonia, gastroparesis, kidney stones, right hip fracture, type II diabetes, depression, anxiety, panic disorder, ADHD, bipolar, lit hotripsy, cataract removal. Reviewed Nurses Notes: Yes Old Medical Records Reviewed: Yes Hx Smoking: Yes Smoking Status: Former Smoker Exposure to Second Hand Smoke?: No Hx Substance Use Disorder: No Hx Alcohol Use: Yes Constitutional Vital Sign - Last 24 Hours 02/25/19 02/25/19 02/25/19 02/25/19 23:24 23:30 23:30 23:40 Temp 97.8 Pulse ??? 111 99 Resp 21 16 B/P (MAP) 132/101 132/101 (111) Pulse Ox 94 O2 Delivery Room Air 02/25/19 02/25/19 02/25/19 02/26/19 23:40 23:49 23:54 00:00 Pulse 102 112 Resp 16 19 B/P (MAP) 123/97 (106) Pulse Ox 93 91 O2 Delivery Room Air 02/26/19 02/26/19 02/26/19 02/26/19 00:05 00:30 00:35 01:01 Pulse 100 103 Resp B/P (MAP) 110/66 (81) 139/98 (112) Pulse Ox 90 89 02/26/19 02/26/19 02/26/19 01:06 01:30 01:36 Pulse 105 101 Resp 12 24 B/P (MAP) 132/83 (99) Pulse Ox 94 87 Physical Exam General Appearance: The patient is alert, has no immediate need for airway protection and no current signs of toxicity. Mild distress, skin slightly pale, warm and dry, vital signs stable, pulse ox normal. HEENT: Pupils equal and round no injection. Oropharynx without redness or exudate, mucous membranes are moist Respiratory: Chest is non tender, lungs are clear to auscultation. No chest wall tenderness Cardiac: regular rate and rhythm, no murmur or rub Gastrointestinal: Abdomen is soft and non tender, no masses, bowel sounds normal. Musculoskeletal: Neck: Neck is supple and non tender. No JVD, no lymphadenopathy Extremities have full range of motion and are non tender. 1+ pitting edema bilaterally to the mid tibial region, no calf tenderness, no Homans sign Skin: No rashes or lesions. DIFFERENTIAL DIAGNOSIS: After history and physical exam differential diagnosis was considered for shortness of breath including but not limited to pulmonary infectious process, COPD, asthma, pulmonary embolus and congestive heart failure. Additionally, chest pain including but not limited to myocardial ischemia, pericarditis pulmonary embolus, chest wall pain, pleural inflammation and pulmonary infectious causes. Medical Decision Making Data Points Result Diagram: 02/25/19 2345 02/25/19 2345 Laboratory Hematology Test 02/25/19 23:45 Red Blood Count 5.02 M/uL (4.00-5.60) Mean Corpuscular Volume 90.7 fL (80.0-96.0) Mean Corpuscular Hemoglobin 30.8 pg (26.0-33.0) Mean Corpuscular Hemoglobin Concent 33.9 g/dL (32.0-36.0) Red Cell Distribution Width 13.8 % (11.5-14.5) Mean Platelet Volume 10.0 fL (7.2-11.1) Neutrophils (%) (Auto) 67.5 % (39.4-72.5) Lymphocytes (%) (Auto) 20.5 % (17.6-49.6) Monocytes (%) (Auto) 7.8 % (4.1-12.4) Eosinophils (%) (Auto) 3.3 % (0.4-6.7) Basophils (%) (Auto) 0.9 % (0.3-1.4) Nucleated RBC Relative Count (auto) 0.0 /100WBC Neutrophils # (Auto) 7.1 K/uL (2.0-7.4) Lymphocytes # (Auto) 2.2 K/uL (1.3-3.6) Monocytes # (Auto) 0.8 K/uL (0.3-1.0) Eosinophils # (Auto) 0.4 K/uL (0.0-0.5) Basophils # (Auto) 0.1 K/uL (0.0-0.1) Nucleated RBC Absolute Count (auto) 0.00 K/uL D-Dimer Quantitative (PE/DVT) 0.75 ug/ml (0-0.50) Sodium Level 137 mmol/L (137-145) Potassium Level 3.4 mmol/L (3.5-5.0) Chloride Level 106 mmol/L (98-107) Carbon Dioxide Level 26 mmol/L (22-30) Blood Urea Nitrogen 17 mg/dl (9-21) Creatinine 1.30 mg/dl (0.66-1.25) Glomerular Filtration Rate Calc 56.7 Random Glucose 247 mg/dl (75-110) Calcium Level 7.6 mg/dl (8.4-10.2) Total Bilirubin 0.2 mg/dl (0.2-1.3) Aspartate Amino Transf (AST/SGOT) 37 U/L (0-35) Alanine Aminotransferase (ALT/SGPT) 43 U/L (0-56) Alkaline Phosphatase 225 U/L (0-126) Troponin I 0.085 ng/ml B-Type Natriuretic Peptide 512 pg/ml (0-100) Total Protein 5.6 g/dl (6.3-8.2) Albumin 3.0 g/dl (3.5-5.0) Chemistry Test 02/25/19 23:45 White Blood Count 10.6 k/uL (4.5-11.0) Red Blood Count 5.02 M/uL (4.00-5.60) Hemoglobin 15.4 g/dL (14.0-18.0) Hematocrit 45.5 % (42.0-52.0) Mean Corpuscular Volume 90.7 fL (80.0-96.0) Mean Corpuscular Hemoglobin 30.8 pg (26.0-33.0) Mean Corpuscular Hemoglobin Concent 33.9 g/dL (32.0-36.0) Red Cell Distribution Width 13.8 % (11.5-14.5) Platelet Count 203 K/uL (150-450) Mean Platelet Volume 10.0 fL (7.2-11.1) Neutrophils (%) (Auto) 67.5 % (39.4-72.5) Lymphocytes (%) (Auto) 20.5 % (17.6-49.6) Monocytes (%) (Auto) 7.8 % (4.1-12.4) Eosinophils (%) (Auto) 3.3 % (0.4-6.7) Basophils (%) (Auto) 0.9 % (0.3-1.4) Nucleated RBC Relative Count (auto) 0.0 /100WBC Neutrophils # (Auto) 7.1 K/uL (2.0-7.4) Lymphocytes # (Auto) 2.2 K/uL (1.3-3.6) Monocytes # (Auto) 0.8 K/uL (0.3-1.0) Eosinophils # (Auto) 0.4 K/uL (0.0-0.5) Basophils # (Auto) 0.1 K/uL (0.0-0.1) Nucleated RBC Absolute Count (auto) 0.00 K/uL D-Dimer Quantitative (PE/DVT) 0.75 ug/ml (0-0.50) Glomerular Filtration Rate Calc 56.7 Calcium Level 7.6 mg/dl (8.4-10.2) Total Bilirubin 0.2 mg/dl (0.2-1.3) Aspartate Amino Transf (AST/SGOT) 37 U/L (0-35) Alanine Aminotransferase (ALT/SGPT) 43 U/L (0-56) Alkaline Phosphatase 225 U/L (0-126) Troponin I 0.085 ng/ml B-Type Natriuretic Peptide 512 pg/ml (0-100) Total Protein 5.6 g/dl (6.3-8.2) Albumin 3.0 g/dl (3.5-5.0) Coagulation Test 02/25/19 23:45 D-Dimer Quantitative (PE/DVT) 0.75 ug/ml EKG/Imaging EKG Interpretation 12 lead EK Rhythm: Sinus tachycardia, rate 103 [place]: normal QRS: normal ST segments:, Comparison to previous EKGs dated 02/20/19 and 01/07/19, no significant morphologic change Imaging X-ray: Single view portable chest x-ray was obtained. I viewed the images myself on the PACS system. My interpretation of the images is: No infiltrate, no effusion, normal mediastinum., Comparison to previous chest x-ray 02/20/19, no significant change. The radiologist interpretation had no clinically significant variation from this interpretation. Results: CT scan of the CTA pulmonary angiogram was obtained. The results of the study are CT PE DATE: 02/26/2019 1:26 AM INDICATION: Chest tightness after shoulder surgery. COMPARISON: Radiograph earlier this evening, CT PE 12/25/2018. TECHNIQUE: Axial CT angiogram was obtained through the chest with intravenous contrast. Sagittal and coronal MPR and MIP coronal reformations were also generated. 75 mL isovue 370. One of the following dose optimization techniques was utilized in the performance of this exam: Automated exposure control; adjustment of the mA and/or kV according to the patient's size; or use of an iterative reconstruction technique. Specific details can be referenced in the facility's radiology CT exam operational policy. FINDINGS: Thyroid / Thoracic Inlet: No visualized thyroid nodule or supraclavicular lymphadenopathy. Pulmonary Arteries: Normal. Heart and Aorta: Normal-size heart with no pericardial effusion. Prominent coronary artery calcification. Nonaneurysmal thoracic aorta. Mediastinum and Alba: No lymphadenopathy. Mildly enlarged mediastinal lymph nodes are likely reactive. Lungs and Pleura: Trace left pleural effusion with adjacent atelectasis. No suspicious consolidation. 3 mm subpleural nodule in the superior segment of the right lower lobe on image 163 series 6. Additional 3 mm subpleural nodule in the right upper lobe on image 156. Breast and Axilla: No axillary lymphadenopathy. Upper Abdomen: No visualized acute abnormality. Peripherally calcified lesion in the posterior aspect of the left kidney measuring up to 2.7 cm in diameter, incompletely imaged. Bones and Soft Tissues: No acute abnormality. Incompletely imaged chronic appearing left humerus fracture. IMPRESSION: 1. No pulmonary embolism. 2. Trace left pleural effusion. 3. Mildly enlarged mediastinal lymph nodes are likely reactive. 4. Prominent coronary artery calcification. 5. Incompletely imaged 2.7 cm lesion in the posterior aspect of the left kidney with peripheral calcification. Recommend nonemergent evaluation with ultrasound. 6. 3 mm subpleural nodules. [employer] FOLLOW-UP GUIDELINES FOR NEWLY DETECTED INCIDENTAL NODULES IN PERSONS 35 YEARS OF AGE OR OLDER. *These recommendations do NOT apply to lung cancer screening, patients with immunosuppression or patients with a known primary malignancy. MULTIPLE SOLID NODULES If nodule size is < 6 mm: * Low risk patient ? No routine follow-up. * High risk patient ? Optional CT at 12 months. LOW RISK PATIENT: Minimal or absent history of tobacco use and of other known risk factors. HIGH RISK PATIENT: Tobacco use, family history of lung cancer, upper pulmonary lobe location of nodule, presence of emphysema, pulmonary fibrosis, older age. The study was read by the radiologist. I viewed the images myself on the PACS system. ED Course/Re-evaluation Clinical Indication for ER IV: IV Access ED Course Patient was admitted to an examination room. H&P was done. The differential diagnosis was considered. Patient with a known history of asthma/COPD. He also has a history of indeterminate elevated troponins with chest tightness and dyspnea. Patient tonight, noted increased dyspnea and chest tightness. He used his inhalers without improvement. He was nondiaphoretic and no nausea. Patient's recent left shoulder surgery for a fracture of the humeral neck. Patient also has a rotator cuff tear. He underwent repair a week ago. He was taken out of the splint today. He has obvious decreased range of motion in his left upper extremity at the shoulder. Left upper sternum is nonswollen. Patie nt's evaluated for increasing shortness of breath. His EKG is unremarkable and unchanged from previous EKG. Diagnostic studies show a mildly elevated troponin in the indeterminate range 0.085. Previous troponins run in the range 0.075- 0.065 on numerous occasions. His BNP was mildly elevated. Patient responded well to a DuoNeb. His d-dimer was elevated, so a CTA pulmonary and she ran was performed which was unremarkable for pulmonary embolism. Patient was given a copy of his CT report, there were several abnormalities that need follow-up. He is advised to follow-up with Dr. Saldivar his primary care doctor. Patient be treated as an asthma exacerbation. He was given prednisone 40 mg here in the emergency department. He'll be on prednisone 40 mg for 3 days and 20 mg for 3 days. He is advised to follow-up with primary care if unimproved in 3-5 days. He is cautioned return to the ER for any worsening Decision to Disposition Date: February 26, 2019 Decision to Disposition Time: 01:44 Depart Departure Latest Vital Signs Vital Signs Date Time Temp Pulse Resp B/P (MAP) Pulse Ox O2 Delivery O2 Flow Rate FiO2 02/26/19 01:36 101 24 87 02/26/19 01:30 132/83 (99) 02/25/19 23:40 Room Air 02/25/19 23:30 97.8 Impression: Primary Impression: Asthma exacerbation Additional Impression: Bronchitis with bronchospasm Condition: Improved Disposition: HOME OR SELF-CARE Referrals: SWETHA SALDIVAR DO (PCP) New Scripts Prednisone (PREDNISONE) 20 Mg Tablet 20 MG PO DAILY for reduce lung inflammation, #9 TAB 2 by mouth daily for 3 days then 1 by mouth daily for 3 days Prov: LESVIA SMITH DO 02/26/19 Patient Instructions: Asthma (ED) Additional Instructions: Follow-up with Dr. Saldivar if unimproved in 3-5 days Problem Qualifiers Primary Impression: Asthma exacerbation Asthma severity: mild Asthma persistence: intermittent Qualified Codes: J45.21 - Mild intermittent asthma with (acute) exacerbation LESVIA SMITH DO February 25, 2019 23:26
[2019-02-25] MEDS ORDERED: ALBUTEROL/IPRATROPIUM 3 ML NEB NEB ONE (23:40)
[2019-02-25 23:58] LABS: PLATELET COUNT, AUTOMATED 203 K/uL (150-450)
--- NOTE | 2019-02-26 00:09 | EKG ---
[place] [facility] [place] NANCI EDWARDS : [id number] MR: [id number] V: [id number] EXAM DATE: ORDERING PHYSICIAN: LESVIA SMITH TECHNOLOGIST: NIRANJAN Hitchcock Reason : DYSPNEA Blood Pressure : / mmHG Vent. Rate : 103 BPM Atrial Rate : 103 BPM P-R Int : 142 ms QRS Dur : 072 ms QT Int : 350 ms P-R-T Axes : 059 079 074 degrees QTc Int : 458 ms Sinus tachycardia Anterior infarct , age undetermined Abnormal ECG When compared with ECG of 20-FEB-2019 22:25, No significant change was found Confirmed by Garcia Craft ([id number]) on 02/26/2019 7:54:19 AM Referred By: SWETHA SALDIVAR Confirmed By:Garcia Riggins
--- NOTE | 2019-02-26 00:11 | RADIOLOGY IMAGING REPORT ---
FACILITY: [facility] PATIENT NAME: Venancio Walton : 1960 MR: [id number] V: [id number] EXAM DATE: ORDERING PHYSICIAN: LESVIA SMITH TECHNOLOGIST: Location: Patient: Venancio Walton : 1960 Visit/Account:[id number] Date of Sevice: 02/25/2019 AP CHEST 02/25/2019 11:50 PM. INDICATION: Chest pain, recent shoulder surgery. COMPARISON: 02/20/2019 and previous. FINDINGS: Lungs are well-expanded. There is no consolidation. Mild blunting of the left costophrenic sulcus. No pneumothorax. Heart size is normal. IMPRESSION: Small left pleural effusion, otherwise nonacute. Report Dictated By: Ron Silverman MD at 02/26/2019 12:06 AM Report E-Signed By: Ron Silverman MD at 02/26/2019 12:07 AM WSN:[id number]
[2019-02-26] MEDS ORDERED: NS(*) 0.9% 10 ML VIAL 40 ML ONE (00:33)
[2019-02-26] MEDS ORDERED: IOPAMIDOL 20 ML VIAL IT ONE (00:34)
[2019-02-26 01:30] VITALS: BP 132/83
--- NOTE | 2019-02-26 01:39 | RADIOLOGY IMAGING REPORT ---
FACILITY: [facility] [place] PATIENT NAME: Venancio Walton : 1960 MR: [id number] V: [id number] EXAM DATE: ORDERING PHYSICIAN: LESVIA SMITH TECHNOLOGIST: Location: [facility] [place] Patient: Venancio Walton : 1960 Visit/Account:[id number] Date of Sevice: 02/26/2019 CT PE DATE: 02/26/2019 1:26 AM INDICATION: Chest tightness after shoulder surgery. COMPARISON: Radiograph earlier this evening, CT PE 12/25/2018. TECHNIQUE: Axial CT angiogram was obtained through the chest with intravenous contrast. Sagittal an d coronal MPR and MIP coronal reformations were also generated. 75 mL isovue 370. One of the follow ing dose optimization techniques was utilized in the performance of this exam: Automated exposure con trol; adjustment of the mA and/or kV according to the patient's size; or use of an iterative reconst ruction technique. Specific details can be referenced in the facility's radiology CT exam operationa l policy. FINDINGS: Thyroid / Thoracic Inlet: No visualized thyroid nodule or supraclavicular lymphadenopathy. Pulmonary Arteries: Normal. Heart and Aorta: Normal-size heart with no pericardial effusion. Prominent coronary artery calcific ation. Nonaneurysmal thoracic aorta. Mediastinum and Alba: No lymphadenopathy. Mildly enlarged mediastinal lymph nodes are likely reacti ve. Lungs and Pleura: Trace left pleural effusion with adjacent atelectasis. No suspicious consolidation . 3 mm subpleural nodule in the superior segment of the right lower lobe on image 163 series 6. Add itional 3 mm subpleural nodule in the right upper lobe on image 156. Breast and Axilla: No axillary lymphadenopathy. Upper Abdomen: No visualized acute abnormality. Peripherally calcified lesion in the posterior aspe ct of the left kidney measuring up to 2.7 cm in diameter, incompletely imaged. Bones and Soft Tissues: No acute abnormality. Incompletely imaged chronic appearing left humerus fra cture. IMPRESSION: 1. No pulmonary embolism. 2. Trace left pleural effusion. 3. Mildly enlarged mediastinal lymph nodes are likely reactive. 4. Prominent coronary artery calcification. 5. Incompletely imaged 2.7 cm lesion in the posterior aspect of the left kidney with peripheral calc ification. Recommend nonemergent evaluation with ultrasound. 6. 3 mm subpleural nodules. [employer] FOLLOW-UP GUIDELINES FOR NEWLY DETECTED INCIDENTAL NODULES IN PERSONS 35 YEARS OF AGE OR OLDER. *These recommendations do NOT apply to lung cancer screening, patients with immunosuppression or abbie ents with a known primary malignancy. MULTIPLE SOLID NODULES If nodule size is < 6 mm: * Low risk patient ? No routine follow-up. * High risk patient ? Optional CT at 12 months. LOW RISK PATIENT: Minimal or absent history of tobacco use and of other known risk factors. HIGH RISK PATIENT: Tobacco use, family history of lung cancer, upper pulmonary lobe location of nodul e, presence of emphysema, pulmonary fibrosis, older age. Derrek H, Babita DP, Carloso JM, et al. Guidelines for Management of Incidental Pulmonary Nodules Dete cted on CT Images: From the Fleischner Society 2017. Radiology. [facility] Report Dictated By: Ron Silverman MD at 02/26/2019 1:26 AM Report E-Signed By: Ron Silverman MD at 02/26/2019 1:35 AM WSN:[id number]
[2019-02-26] MEDS ORDERED: predniSONE 20 MG TAB PO ONE (01:45)
[2019-02-26] MEDS ORDERED: PRED20TA6 PO (01:48)
== END 2019-02-26 01:59 | disposition home or self-care (01) ==
LOC: ER 23:37
DX: J45.21 Mild intermittent asthma with (acute) exacerbation (principal); J20.9 Acute bronchitis, unspecified
CPT/HCPCS: 71045; 71275; 83880; 84484; 85025; 85379; 93005; 94640; 99284; J7512; J7620; Q9966; 82040; 82247; 82310; 82374; 82435; 82565; 82947; 84075; 84132; 84155; 84295; 84450; 84460; 84520

== ENCOUNTER 2019-03-11 17:52 | Emergency (ER) | payer MEDICARE, MEDICAID ==
--- NOTE | 2019-03-11 18:04 | ER Report ---
History and Physical Time Seen By MD: 18:04 Hx. of Stated Complaint: SOB, CHEST PRESSURE, DIZZINESS STARTED TODAY. DENIES FEVERS. HPI/ROS CHIEF COMPLAINT: Shortness breath HISTORY OF PRESENT ILLNESS: Patient is a 59-year-old male here with complaints of shortness breath starting today, denies chest pain, chest pressure, pain with inspiration. Patient was recently seen on February 25 for similar onset of symptoms at which time a CTA was negative for pulmonary embolism. Patient reports similar symptoms to prior. He reports dyspnea especially with exertion but denies current history of cough. On previous presentation, patient was treated with steroids and azithromycin with rapid improvement of symptoms. Patient does have a history of reactive airway disease. REVIEW OF SYSTEMS: Constitutional: No fever, no chills. Eyes: No discharge. ENT: No sore throat. Cardiovascular: No chest pain, no palpitations. Respiratory: No cough, + shortness of breath. Gastrointestinal: No abdominal pain, no vomiting. Genitourinary: No hematuria. Musculoskeletal: No back pain. Skin: No rashes. Neurological: No headache. Allergies: Coded Allergies: Penicillins (Verified Allergy, Unknown, 03/11/19) aspirin (Verified Allergy, Unknown, 03/11/19) Home Meds Active Scripts Naproxen Sodium (ALEVE) 220 Mg Capsule, 440 MG PO TID, #30 CAPSULE Prov:JOSSELIN KESSLER DO 05/20/18 Ondansetron (ZOFRAN ODT) 4 Mg Tab.rapdis, 4 MG PO Q6H PRN for NAUSEA/VOMITING, #20 TAB 0 Refills Prov:SOHA BRAXTON MD 09/12/16 Reported Medications Insulin Lispro 100 Un/Ml Vial (HUMALOG 100 U/ML VIAL) 100 Unit/1 Ml Vial, SQ DIRECTED, VIAL 08/29/16 Methotrexate Sodium (METHOTREXATE) 2.5 Mg Tablet, 1 TAB PO WEEKLY, #32 08/29/16 Insulin Glargine,Hum.rec.anlog (Rebecca Solgerry) 300 Unit/1 Ml Insuln.pen, 1 UNIT SQ DIRECTED, #12 08/29/16 Tamsulosin Hcl (FLOMAX) 0.4 Mg Cap.er.24h, 0.4 MG PO QDAY, #20 TAKE WITH FOOD. 10/16/13 Lactobacillus Combination No.4 (PROBIOTIC) 1 Each Capsule, 1 EACH PO BID, CAPSULE 10/13/13 Metoclopramide Hcl (METOCLOPRAMIDE HCL) 5 Mg/5 Ml Solution, 5 MG PO QID PRN 10/13/13 Albuterol Sulfate 90 Mcg/Act (PROAIR HFA 90 MCG/ACT) 8.5 Gm Hfa.aer.ad, 2 PUFF IH Q4-6H PRN 10/13/13 Montelukast Sodium (SINGULAIR) 10 Mg Tablet, 1 TAB PO QDAY TAKE ONE TABLET BY MOUTH EVERY DAY 10/13/13 Aripiprazole (ABILIFY) 2 Mg Tablet, 2 MG PO QDAY, TAB 10/13/13 Folic Acid (FOLIC ACID) 1 Mg Tablet, 1 MG PO DAILY 07/18/13 Metformin Hcl (METFORMIN HCL ER) 500 Mg Tab.er.24, 2 TAB PO BID TAKE TWO TABLETS BY MOUTH TWICE DAILY WITH FOOD 07/18/13 Fenofibrate (FENOFIBRATE) 160 Mg Tablet, 160 MG PO QDAY 07/18/13 Clonazepam (KLONOPIN) 0.5 Mg Tablet, 0.5 MG PO BID 07/18/13 Topiramate (TOPAMAX) 200 Mg Tablet, 200 MG PO BID 07/18/13 Rosuvastatin Calcium (CRESTOR) 20 Mg Tablet, 20 MG PO HS 07/18/13 Olanzapine (OLANZAPINE) 2.5 Mg Tablet, 2.5 MG PO HS 07/18/13 Lisinopril (LISINOPRIL) 10 Mg Tablet, 10 MG PO QDAY 07/18/13 Atomoxetine Hcl (STRATTERA) 40 Mg Capsule, 40 MG PO DAILY 07/18/13 Discontinued Scripts Prednisone (PREDNISONE) 20 Mg Tablet, 20 MG PO DAILY for reduce lung inflammation, #9 TAB 2 by mouth daily for 3 days then 1 by mouth daily for 3 days Prov:LESVIA SMITH DO 02/26/19 Benzonatate 100 Mg Cap (TESSALON PERLE 100 MG CAP) 100 Mg Capsule, 100 MG PO TID PRN for COUGH, #15 CAP 0 Refills Prov:SOHA BRAXTON MD 02/21/19 Ondansetron 4 Mg Odt (ONDANSETRON 4 MG ODT) 4 Mg Tab.rapdis, 4 MG PO Q6H PRN for NAUSEA/VOMITING, #20 TAB 0 Refills Prov:SOHA BRAXTON MD 02/21/19 Hx Smoking: Yes Smoking Status: Former Smoker Exposure to Second Hand Smoke?: No Hx Substance Use Disorder: No Hx Alcohol Use: Yes Constitutional Vital Sign - Last 24 Hours 03/11/19 03/11/19 03/11/19 03/11/19 17:58 18:03 18:15 18:15 Temp 97.8 Pulse 128 115 116 Resp 18 20 B/P (MAP) 158/124 158/124 (135) Pulse Ox 93 97 O2 Delivery Room Air 03/11/19 03/11/19 03/11/19 03/11/19 18:15 18:23 18:30 18:45 Pulse 113 118 114 Resp 18 B/P (MAP) 171/121 (138) Pulse Ox 93 92 92 O2 Delivery Room Air 03/11/19 03/11/19 03/11/19 03/11/19 18:50 19:00 19:05 19:20 Pulse 111 113 113 B/P (MAP) 150/113 (125) Pulse Ox 92 95 97 03/11/19 03/11/19 03/11/19 03/11/19 19:25 19:30 19:30 19:39 Pulse 109 110 108 Resp 34 22 22 Pulse Ox 93 94 O2 Delivery Room Air 03/11/19 03/11/19 03/11/19 19:40 19:55 20:10 Pulse 115 113 114 Resp 12 8 11 Pulse Ox 99 92 93 Physical Exam General Appearance: The patient is alert, has no immediate need for airway protection and no signs of toxicity. NAD Eyes: Pupils equal and round no pallor or injection. ENT, Mouth: Mucous membranes are moist. Respiratory: There are no retractions, lungs are clear to auscultation. Cardiovascular: + tachy sinus Gastrointestinal: Abdomen is soft and non tender, no masses, bowel sounds normal. Neurological: No focal deficits Skin: Warm and dry, no rashes. Musculoskeletal: Neck is supple non tender. Extremities are nontender, nonswollen and have full range of motion. DIFFERENTIAL DIAGNOSIS: After history and physical exam differential diagnosis was considered for shortness of breath including but not limited to pulmonary infectious process, COPD, asthma, pulmonary embolus and congestive heart fa ilure. Medical Decision Making Data Points Result Diagram: 03/11/19 1823 03/11/19 182 Laboratory Hematology Test 03/11/19 18:23 03/11/19 21:09 Red Blood Count 5.22 M/uL (4.00-5.60) Mean Corpuscular Volume 90.3 fL (80.0-96.0) Mean Corpuscular Hemoglobin 30.2 pg (26.0-33.0) Mean Corpuscular Hemoglobin Concent 33.4 g/dL (32.0-36.0) Red Cell Distribution Width 14.1 % (11.5-14.5) Mean Platelet Volume 9.8 fL (7.2-11.1) Neutrophils (%) (Auto) 78.1 % (39.4-72.5) Lymphocytes (%) (Auto) 13.3 % (17.6-49.6) Monocytes (%) (Auto) 6.3 % (4.1-12.4) Eosinophils (%) (Auto) 1.7 % (0.4-6.7) Basophils (%) (Auto) 0.6 % (0.3-1.4) Nucleated RBC Relative Count (auto) 0.1 /100WBC Neutrophils # (Auto) 8.1 K/uL (2.0-7.4) Lymphocytes # (Auto) 1.4 K/uL (1.3-3.6) Monocytes # (Auto) 0.7 K/uL (0.3-1.0) Eosinophils # (Auto) 0.2 K/uL (0.0-0.5) Basophils # (Auto) 0.1 K/uL (0.0-0.1) Nucleated RBC Absolute Count (auto) 0.01 K/uL Prothrombin Time 13.8 seconds (12.0-14.4) Prothromb Time International Ratio 1.06 Activated Partial Thromboplast Time 29 seconds (23-35) Sodium Level 141 mmol/L (137-145) Potassium Level 4.0 mmol/L (3.5-5.0) Chloride Level 104 mmol/L (98-107) Carbon Dioxide Level 25 mmol/L (22-30) Blood Urea Nitrogen 8 mg/dl (9-21) Creatinine 0.80 mg/dl (0.66-1.25) Glomerular Filtration Rate Calc > 60.0 Random Glucose 344 mg/dl (75-110) Calcium Level 8.9 mg/dl (8.4-10.2) Total Bilirubin 0.4 mg/dl (0.2-1.3) Aspartate Amino Transf (AST/SGOT) 31 U/L (0-35) Alanine Aminotransferase (ALT/SGPT) 33 U/L (0-56) Alkaline Phosphatase 125 U/L (0-126) B-Type Natriuretic Peptide 762 pg/ml (0-100) Total Protein 6.2 g/dl (6.3-8.2) Albumin 3.5 g/dl (3.5-5.0) Troponin I 0.106 ng/ml Chemistry Test 03/11/19 18:23 03/11/19 21:09 White Blood Count 10.3 k/uL (4.5-11.0) Red Blood Count 5.22 M/uL (4.00-5.60) Hemoglobin 15.8 g/dL (14.0-18.0) Hematocrit 47.1 % (42.0-52.0) Mean Corpuscular Volume 90.3 fL (80.0-96.0) Mean Corpuscular Hemoglobin 30.2 pg (26.0-33.0) Mean Corpuscular Hemoglobin Concent 33.4 g/dL (32.0-36.0) Red Cell Distribution Width 14.1 % (11.5-14.5) Platelet Count 190 K/uL (150-450) Mean Platelet Volume 9.8 fL (7.2-11.1) Neutrophils (%) (Auto) 78.1 % (39.4-72.5) Lymphocytes (%) (Auto) 13.3 % (17.6-49.6) Monocytes (%) (Auto) 6.3 % (4.1-12.4) Eosinophils (%) (Auto) 1.7 % (0.4-6.7) Basophils (%) (Auto) 0.6 % (0.3-1.4) Nucleated RBC Relative Count (auto) 0.1 /100WBC Neutrophils # (Auto) 8.1 K/uL (2.0-7.4) Lymphocytes # (Auto) 1.4 K/uL (1.3-3.6) Monocytes # (Auto) 0.7 K/uL (0.3-1.0) Eosinophils # (Auto) 0.2 K/uL (0.0-0.5) Basophils # (Auto) 0.1 K/uL (0.0-0.1) Nucleated RBC Absolute Count (auto) 0.01 K/uL Prothrombin Time 13.8 seconds (12.0-14.4) Prothromb Time International Ratio 1.06 Activated Partial Thromboplast Time 29 seconds (23-35) Glomerular Filtration Rate Calc > 60.0 Calcium Level 8.9 mg/dl (8.4-10.2) Total Bilirubin 0.4 mg/dl (0.2-1.3) Aspartate Amino Transf (AST/SGOT) 31 U/L (0-35) Alanine Aminotransferase (ALT/SGPT) 33 U/L (0-56) Alkaline Phosphatase 125 U/L (0-126) B-Type Natriuretic Peptide 762 pg/ml (0-100) Total Protein 6.2 g/dl (6.3-8.2) Albumin 3.5 g/dl (3.5-5.0) Troponin I 0.106 ng/ml Coagulation Test 03/11/19 18:23 Prothrombin Time 13.8 seconds Prothromb Time International Ratio 1.06 Activated Partial Thromboplast Time 29 seconds EKG/Imaging EKG Interpretation PATIENT NAME: VENANCIO WALTON : [id number] MR: [id number] V: [id number] EXAM DATE: ORDERING PHYSICIAN: JOSSELIN KESSLER TECHNOLOGIST: SMILEY Hitchcock Reason : SOB Blood Pressure : / mmHG Vent. Rate : 119 BPM Atrial Rate : 119 BPM P-R Int : 136 ms QRS Dur : 072 ms QT Int : 330 ms P-R-T Axes : 048 025 068 degrees QTc Int : 464 ms Sinus tachycardia Otherwise normal ECG When compared with ECG of 25-FEB-2019 23:34, No significant change was found Referred By: VICTORIA Confirmed By: 180 T: / Imaging PATIENT NAME: Venancio Walton : 1960 MR: [id number] V: [id number] EXAM DATE: ORDERING PHYSICIAN: JOSSELIN KESSLER TECHNOLOGIST: Location: [facility] - [place] Patient: Venancio Walton : 1960 Visit/Account:[id number] Date of Sevice: 03/11/2019 EXAMINATION: CTA Chest With Contrast 03/11/2019 7:16 PM HISTORY: SOB TECHNIQUE: Pulmonary embolus protocol - Thin-slice axial imaging of the chest was performed during maximal pulmonary arterial opacification with intravenous nonionic iodinated contrast. 3D slab MIPs and 2D reconstructions in the coronal and sagittal planes were performed. Filling Hauler images have been stored on PACS. Contrast: 75 mL of IV Isovue 370. One of the following dose optimization techniques was utilized in the performance of this exam: Automated exposure control; adjustment of the mA and/or kV according to the patient's size; or use of an iterative reconstruction technique. Specific details can be referenced in the facility's radiology CT exam operational policy. COMPARISON STUDIES: 02/26/2019. Chest x-ray today.. FINDINGS: Angiographic Findings: Pulmonary arteries: There are no filling defects in the main, right, left, lobar, segmental or visualized sub-segmental branches of the pulmonary arterial system Other vasculature: Coronary atherosclerosis. Additional non-angiographic findings: Lungs / pleura: Stable subpleural nodules anterolaterally in the right upper lobe and posteriorly in the superior segment of the right lower lobe. No acute finding. Mediastinum / mahamed: negative Heart / pericardium: negative Musculoskeletal / Body wall: Proximal left humeral fracture again shown. Lymph node assessment: negative Lower neck: negative Upper abdomen: Partially imaged likely cyst in the posterior left kidney with some peripheral calcification. IMPRESSION: 1. Negative CTA evaluation for PE. No acute finding in the chest. 2. Patient does have calcified coronary disease. 3. Proximal left humeral fracture. 4. Partially visualized structure in the posterior left kidney may be a complicated cyst but is incompletely assessed by this study. Report Dictated By: Dalton Cornelius MD at 03/11/2019 8:49 PM Report E-Signed By: Dalton Cornelius MD at 03/11/2019 8:56 PM WSN:[id number] ED Course/Re-evaluation ED Course Patient is a 59-year-old male here with complaints of shortness breath which was acute onset today. Patient reportedly had similar symptoms on February 25 when he was evaluated previously which responded well to prednisone, antimicrobials. Patient denies chest pain, chest tightness currently. CT of the chest was completely because patient was mildly tachycardic. CTA showed no acute signs of pulmonary embolism. Troponin did come back elevated at 0.1 however in the absence of chest pain or chest pressure, troponin was repeated and it remained constant 3 hours a fter the initial. Patient will need cardiology follow-up tomorrow with an echo and stress test if possible to determine if there is a current significant blockage. Patient voices understanding of plan. Return precautions provided. Follow up with PCP tomorrow Decision to Disposition Date: March 11, 2019 Decision to Disposition Time: 22:32 Depart Departure Latest Vital Signs Vital Signs Date Time Temp Pulse Resp B/P (MAP) Pulse Ox O2 Delivery O2 Flow Rate FiO2 03/11/19 20:10 114 11 93 03/11/19 19:30 Room Air 03/11/19 19:00 150/113 (125) 03/11/19 17:58 97.8 Impression: Primary Impression: Shortness of breath Condition: Improved Disposition: HOME OR SELF-CARE Referrals: SWETHA SALDIVAR DO (PCP) New Scripts Doxycycline Calcium (VIBRAMYCIN) 50 Mg/5 Ml Syrup 100 MG PO BID for 7 Days, #14 TAB Prov: JOSSELIN KESSLER DO 03/11/19 Prednisone (PREDNISONE) 50 Mg Tablet 50 MG PO QDAY for 5 Days, #5 TAB Prov: JOSSELIN KESSLER DO 03/11/19 Patient Instructions: Dyspnea (GEN) Additional Instructions: Please drink plenty of water. Please take prednisone 1 tablet daily for the next 5 days. Please take doxycycline 1 tablet twice daily for 7 days. Please follow- up with your PCP tomorrow and discussed the need for immediate cardiology follow-up for stress test and echo as your troponin has been slowly elevating. If you develop chest pain, chest tightness, please return promptly. If you develop fevers, chills, lightheadedness, weakness, sweating please return immediately. JOSSELIN KESSLER DO March 11, 2019 18:04
[2019-03-11] MEDS ORDERED: methylPREDNIS SUCC 125 MG/2ML IVP ONE (18:10)
[2019-03-11] MEDS ORDERED: ALBUTEROL/IPRATROPIUM 3 ML NEB ONE (18:11)
[2019-03-11] MEDS: ALBUTEROL/IPRATROPIUM 3 ML NEB NEB SCH ×3 (18:15→19:00)
--- NOTE | 2019-03-11 18:22 | EKG ---
FACILITY: [facility] PATIENT NAME: NANCI EDWARDS : [id number] MR: [id number] V: [id number] EXAM DATE: ORDERING PHYSICIAN: JOSSELIN KESSLER TECHNOLOGIST: SMILEY Hitchcock Reason : SOB Blood Pressure : / mmHG Vent. Rate : 119 BPM Atrial Rate : 119 BPM P-R Int : 136 ms QRS Dur : 072 ms QT Int : 330 ms P-R-T Axes : 048 025 068 degrees QTc Int : 464 ms Sinus tachycardia R wave progression consistent with old ant/sep TN vs lead placement When compared with ECG of 25-FEB-2019 23:34, No significant change was found Confirmed by JORDAN GAITAN ([id number]) on 03/11/2019 10:30:27 PM Referred By: VICTORIA Confirmed By:JORDAN GAITAN
[2019-03-11] MEDS ORDERED: NS(*) 0.9% 1000 ML BAG 1,000 ML IV ONE (18:35)
[2019-03-11 18:47] LABS: PLATELET COUNT, AUTOMATED 190 K/uL (150-450)
[2019-03-11 18:54] LABS: INR 1.06
[2019-03-11] MEDS ORDERED: IOPAMIDOL 76% 100 ML INFUS BTL 100 ML ONE (20:03)
[2019-03-11] MEDS ORDERED: NS(*) 0.9% 50 ML BAG 50 ML ONE (20:04)
--- NOTE | 2019-03-11 20:59 | RADIOLOGY IMAGING REPORT ---
FAC[place] [facility] [place] PATIENT NAME: Venancio Walton : 1960 MR: [id number] V: [id number] EXAM DATE: ORDERING PHYSICIAN: JOSSELIN KESSLER TECHNOLOGIST: Location: [facility] Patient: Venancio Walton : 1960 Visit/Account:[id number] Date of Sevice: 03/11/2019 EXAMINATION: CTA Chest With Contrast 03/11/2019 7:16 PM HISTORY: SOB TECHNIQUE: Pulmonary embolus protocol - Thin-slice axial imaging of the chest was performed during maximal pulmonary arterial opacification with intravenous nonionic iodinated contrast. 3D slab MIPs a nd 2D reconstructions in the coronal and sagittal planes were performed. Lawn [employer] Supervisor images have b een stored on PACS. Contrast: 75 mL of IV Isovue 370. One of the following dose optimization techniques was utilized in the performance of this exam: Autom ated exposure control; adjustment of the mA and/or kV according to the patient's size; or use of an i terative reconstruction technique. Specific details can be referenced in the facility's radiology C T exam operational policy. COMPARISON STUDIES: 02/26/2019. Chest x-ray today.. FINDINGS: Angiographic Findings: Pulmonary arteries: There are no filling defects in the main, right, left, lobar, segmental or visual ized sub-segmental branches of the pulmonary arterial system Other vasculature: Coronary atherosclerosis. Additional non-angiographic findings: Lungs / pleura: Stable subpleural nodules anterolaterally in the right upper lobe and posteriorly in the superior segment of the right lower lobe. No acute finding. Mediastinum / mahamed: negative Heart / pericardium: negative Musculoskeletal / Body wall: Proximal left humeral fracture again shown. Lymph node assessment: negative Lower neck: negative Upper abdomen: Partially imaged likely cyst in the posterior left kidney with some peripheral calcifi cation. IMPRESSION: 1. Negative CTA evaluation for PE. No acute finding in the chest. 2. Patient does have calcified coronary disease. 3. Proximal left humeral fracture. 4. Partially visualized structure in the posterior left kidney may be a complicated cyst but is incom pletely assessed by this study. Report Dictated By: Dalton Cornelius MD at 03/11/2019 8:49 PM Report E-Signed By: Dalton Cornelius MD at 03/11/2019 8:56 PM WSN:[id number]
--- NOTE | 2019-03-11 21:00 | RADIOLOGY IMAGING REPORT ---
FACILITY: [facility] PATIENT NAME: Venancio Walton : 1960 MR: [id number] V: [id number] EXAM DATE: ORDERING PHYSICIAN: JOSSELIN KESSLER TECHNOLOGIST: Location: [facility] - [place] Patient: Venancio Walton : 1960 Visit/Account:[id number] Date of Sevice: 03/11/2019 EXAMINATION: Portable AP Chest 03/11/2019 6:10 PM HISTORY: RESP DISTRESS COMPARISON: Separate CTA chest for PE tonight. Chest x-ray 02/25/2019. FINDINGS: Cardiomediastinal contours: Normal Lungs and pleura: Normal Bones/soft tissues: Partially visualized subacute proximal left humeral fracture. IMPRESSION: No acute cardiopulmonary abnormality. Report Dictated By: Dalton Cornelius MD at 03/11/2019 8:56 PM Report E-Signed By: Dalton Cornelius MD at 03/11/2019 8:57 PM WSN:[id number]
[2019-03-11 22:00] VITALS: BP 132/91
[2019-03-11] MEDS ORDERED: DOXY50SY2 PO (22:34)
[2019-03-11] MEDS ORDERED: PRED50TA22 PO (22:34)
== END 2019-03-11 22:56 | disposition home or self-care (01) ==
LOC: ER 18:17
DX: R06.02 Shortness of breath (principal); R00.0 Tachycardia, unspecified
CPT/HCPCS: 71045; 71275; 83880; 84484; 85025; 85610; 85730; 93005; 94640; 96361; 96374; 99284; J2930; J7030; J7050; J7620; Q9967; 82040; 82247; 82310; 82374; 82435; 82565; 82947; 84075; 84132; 84155; 84295; 84450; 84460; 84520

== ENCOUNTER 2019-03-17 17:22 | Emergency (ER) | payer MEDICARE, MEDICAID ==
--- NOTE | 2019-03-17 17:32 | ER Report ---
History and Physical Time Seen By MD: 17:32 Hx. of Stated Complaint: PATIENT WAS SENT BY HIS PSYCH PROVIDER FOR TACHYCARDIA AND HYPERTENSION HPI/ROS CHIEF COMPLAINT: Fast heart rate and shortness of breath. HISTORY OF PRESENT ILLNESS: 59 year old male presents to ED with tachycardia, high blood pressure, and SOB. 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 He had a recent infection with pneumonia. Reports he has had SOB on and off since that time, but today the shortness of breath seems worse. Patient has hx of bipolar disorder, ADHD, anxiety, and depression. Reports he feels like he is in a manic episode, but Mirna stated he was not in a manic episode. Patient was also in the ED on 03/11 with shortness of breath. No diagnosis was found REVIEW OF SYSTEMS: Constitutional: Denies fever, appetite changes, fatigue Respiratory: No cough. Reports shortness of breath - he feels like he can't take a deep breath. Cardiovascular: No chest pain, no palpitations. Gastrointestinal: No vomiting, no nausea, no abdominal pain. Musculoskeletal: No back pain. Allergies: Coded Allergies: Penicillins (Verified Allergy, Unknown, 03/11/19) aspirin (Verified Allergy, Unknown, 03/11/19) Home Meds Active Scripts Doxycycline Calcium (VIBRAMYCIN) 50 Mg/5 Ml Syrup, 100 MG PO BID for 7 Days, #14 TAB Prov:JOSSELIN KESSLER DO 03/11/19 Prednisone (PREDNISONE) 50 Mg Tablet, 50 MG PO QDAY for 5 Days, #5 TAB Prov:JOSSELIN KESSLER DO 03/11/19 Naproxen Sodium (ALEVE) 220 Mg Capsule, 440 MG PO TID, #30 CAPSULE Prov:JOSSELIN KESSLER DO 05/20/18 Ondansetron (ZOFRAN ODT) 4 Mg Tab.rapdis, 4 MG PO Q6H PRN for NAUSEA/VOMITING, #20 TAB 0 Refills Prov:SOHA BRAXTON MD 09/12/16 Reported Medications Insulin Lispro 100 Un/Ml Vial (HUMALOG 100 U/ML VIAL) 100 Unit/1 Ml Vial, SQ DIRECTED, VIAL 08/29/16 Methotrexate Sodium (METHOTREXATE) 2.5 Mg Tablet, 1 TAB PO WEEKLY, #32 08/29/16 Insulin Glargine,Hum.rec.anlog (Rebecca Garciaostar) 300 Unit/1 Ml Insuln.pen, 1 UNIT SQ DIRECTED, #12 08/29/16 Tamsulosin Hcl (FLOMAX) 0.4 Mg Cap.er.24h, 0.4 MG PO QDAY, #20 TAKE WITH FOOD. 10/16/13 Lactobacillus Combination No.4 (PROBIOTIC) 1 Each Capsule, 1 EACH PO BID, CAPSULE 10/13/13 Metoclopramide Hcl (METOCLOPRAMIDE HCL) 5 Mg/5 Ml Solution, 5 MG PO QID PRN 10/13/13 Albuterol Sulfate 90 Mcg/Act (PROAIR HFA 90 MCG/ACT) 8.5 Gm Hfa.aer.ad, 2 PUFF IH Q4-6H PRN 10/13/13 Montelukast Sodium (SINGULAIR) 10 Mg Tablet, 1 TAB PO QDAY TAKE ONE TABLET BY MOUTH EVERY DAY 10/13/13 Aripiprazole (ABILIFY) 2 Mg Tablet, 2 MG PO QDAY, TAB 10/13/13 Folic Acid (FOLIC ACID) 1 Mg Tablet, 1 MG PO DAILY 07/18/13 Metformin Hcl (METFORMIN HCL ER) 500 Mg Tab.er.24, 2 TAB PO BID TAKE TWO TABLETS BY MOUTH TWICE DAILY WITH FOOD 07/18/13 Fenofibrate (FENOFIBRATE) 160 Mg Tablet, 160 MG PO QDAY 07/18/13 Clonazepam (KLONOPIN) 0.5 Mg Tablet, 0.5 MG PO BID 07/18/13 Topiramate (TOPAMAX) 200 Mg Tablet, 200 MG PO BID 07/18/13 Rosuvastatin Calcium (CRESTOR) 20 Mg Tablet, 20 MG PO HS 07/18/13 Olanzapine (OLANZAPINE) 2.5 Mg Tablet, 2.5 MG PO HS 07/18/13 Lisinopril (LISINOPRIL) 10 Mg Tablet, 10 MG PO QDAY 07/18/13 Atomoxetine Hcl (STRATTERA) 40 Mg Capsule, 40 MG PO DAILY 07/18/13 Discontinued Scripts Prednisone (PREDNISONE) 20 Mg Tablet, 20 MG PO DAILY for reduce lung in flammation, #9 TAB 2 by mouth daily for 3 days then 1 by mouth daily for 3 days Prov:LESVIA SMITH DO 02/26/19 Benzonatate 100 Mg Cap (TESSALON PERLE 100 MG CAP) 100 Mg Capsule, 100 MG PO TID PRN for COUGH, #15 CAP 0 Refills Prov:SOHA BRAXTON MD 02/21/19 Ondansetron 4 Mg Odt (ONDANSETRON 4 MG ODT) 4 Mg Tab.rapdis, 4 MG PO Q6H PRN for NAUSEA/VOMITING, #20 TAB 0 Refills Prov:SOHA BRAXTON MD 02/21/19 Past Medical/Surgical History Past medical hx significant for migraines, angina, HTN, hypercholesterolemia, asthma, pneumonia 01/11/2018, gastroparesis, kidney stones, fracture of right hand, diabetes, bipolar disorder, anxiety, ADHD, depression Past surgical hx of lithotripsy, ortho surgery on his hand and leg, cataract surgery Hx Smoking: Yes Smoking Status: Former Smoker Exposure to Second Hand Smoke?: No Hx Substance Use Disorder: No Hx Alcohol Use: Yes Constitutional Vital Sign - Last 24 Hours 03/17/19 03/17/19 03/17/19 03/17/19 17:25 17:27 17:28 17:32 Temp 98.4 Pulse 126 Resp 24 B/P (MAP) 128/113 (118) 152/118 (129) 141/108 (119) Pulse Ox 96 O2 Delivery Room Air 03/17/19 03/17/19 03/17/19 03/17/19 17:34 17:37 17:52 17:54 Pulse 112 105 Resp 29 33 B/P (MAP) 154/117 (129) 132/93 (106) Pulse Ox 95 94 03/17/19 03/17/19 03/17/19 03/17/19 18:22 18:37 18:52 19:07 Pulse 102 101 104 101 Resp 16 27 32 10 Pulse Ox 98 97 92 94 03/17/19 03/17/19 03/17/19 03/17/19 19:12 19:27 19:42 20:12 Pulse 101 108 113 112 Resp 12 61 9 17 Pulse Ox 95 93 95 96 03/17/19 03/17/19 03/17/19 20:27 20:42 20:57 Pulse 103 102 100 Resp 17 13 9 Pulse Ox 94 94 91 Physical Exam General Appearance: The patient is alert, has no immediate need for airway protection and no current signs of toxicity. Eyes: Pupils equal and round no injection. Respiratory: Chest is non tender, lungs are clear to auscultation. Cardiac: tachycardia with several PVCs noted. Gastrointestinal: Abdomen is soft and non tender, no masses, bowel sounds normal. Musculoskeletal: Neck: Neck is supple and non tender. Extremities have full range of motion and are non tender. Skin: No rashes or lesions. DIFFERENTIAL DIAGNOSIS: After history and physical exam differential diagnosis was considered for NE, dehydration, hyperthyroid, anxiety, eloina, infection including pneumonia and UTI. Medical Decision Making Data Points Result Diagram: 03/17/19 1731 03/17/19 1731 Laboratory Hematology Test 03/17/19 17:31 03/17/19 20:41 Red Blood Count 5.96 M/uL (4.00-5.60) Mean Corpuscular Volume 88.5 fL (80.0-96.0) Mean Corpuscular Hemoglobin 29.6 pg (26.0-33.0) Mean Corpuscular Hemoglobin Concent 33.5 g/dL (32.0-36.0) Red Cell Distribution Width 13.8 % (11.5-14.5) Mean Platelet Volume 10.2 fL (7.2-11.1) Neutrophils (%) (Auto) 67.5 % (39.4-72.5) Lymphocytes (%) (Auto) 20.4 % (17.6-49.6) Monocytes (%) (Auto) 9.3 % (4.1-12.4) Eosinophils (%) (Auto) 2.3 % (0.4-6.7) Basophils (%) (Auto) 0.5 % (0.3-1.4) Nucleated RBC Relative Count (auto) 0.1 /100WBC Neutrophils # (Auto) 7.5 K/uL (2.0-7.4) Lymphocytes # (Auto) 2.3 K/uL (1.3-3.6) Monocytes # (Auto) 1.0 K/uL (0.3-1.0) Eosinophils # (Auto) 0.3 K/uL (0.0-0.5) Basophils # (Auto) 0.1 K/uL (0.0-0.1) Nucleated RBC Absolute Count (auto) 0.01 K/uL Sodium Level 140 mmol/L (137-145) Potassium Level 2.9 mmol/L (3.5-5.0) Chloride Level 103 mmol/L (98-107) Carbon Dioxide Level 25 mmol/L (22-30) Blood Urea Nitrogen 17 mg/dl (9-21) Creatinine 1.00 mg/dl (0.66-1.25) Glomerular Filtration Rate Calc > 60.0 Random Glucose 273 mg/dl (75-110) Calcium Level 8.5 mg/dl (8.4-10.2) Total Bilirubin 0.6 mg/dl (0.2-1.3) Aspartate Amino Transf (AST/SGOT) 20 U/L (0-35) Alanine Aminotransferase (ALT/SGPT) 36 U/L (0-56) Alkaline Phosphatase 156 U/L (0-126) Total Protein 6.3 g/dl (6.3-8.2) Albumin 3.4 g/dl (3.5-5.0) Troponin I 0.137 ng/ml Chemistry Test 03/17/19 17:31 03/17/19 20:41 White Blood Count 11.2 k/uL (4.5-11.0) Red Blood Count 5.96 M/uL (4.00-5.60) Hemoglobin 17.7 g/dL (14.0-18.0) Hematocrit 52.8 % (42.0-52.0) Mean Corpuscular Volume 88.5 fL (80.0-96.0) Mean Corpuscular Hemoglobin 29.6 pg (26.0-33.0) Mean Corpuscular Hemoglobin Concent 33.5 g/dL (32.0-36.0) Red Cell Distribution Width 13.8 % (11.5-14.5) Platelet Count 224 K/uL (150-450) Mean Platelet Volume 10.2 fL (7.2-11.1) Neutrophils (%) (Auto) 67.5 % (39.4-72.5) Lymphocytes (%) (Auto) 20.4 % (17.6-49.6) Monocytes (%) (Auto) 9.3 % (4.1-12.4) Eosinophils (%) (Auto) 2.3 % (0.4-6.7) Basophils (%) (Auto) 0.5 % (0.3-1.4) Nucleated RBC Relative Count (auto) 0.1 /100WBC Neutrophils # (Auto) 7.5 K/uL (2.0-7.4) Lymphocytes # (Auto) 2.3 K/uL (1.3-3.6) Monocytes # (Auto) 1.0 K/uL (0.3-1.0) Eosinophils # (Auto) 0.3 K/uL (0.0-0.5) Basophils # (Auto) 0.1 K/uL (0.0-0.1) Nucleated RBC Absolute Count (auto) 0.01 K/uL Glomerular Filtration Rate Calc > 60.0 Calcium Level 8.5 mg/dl (8.4-10.2) Total Bilirubin 0.6 mg/dl (0.2-1.3) Aspartate Amino Transf (AST/SGOT) 20 U/L (0-35) Alanine Aminotransferase (ALT/SGPT) 36 U/L (0-56) Alkaline Phosphatase 156 U/L (0-126) Total Protein 6.3 g/dl (6.3-8.2) Albumin 3.4 g/dl (3.5-5.0) Troponin I 0.137 ng/ml EKG/Imaging EKG Interpretation 12 lead EKG: Rhythm: Sinus tachycardia with premature supraventricular complexe with occassional PVCs. Ventricular rate of 120 bpm [place]: normal QRS: normal ST segments: normal Monitor Interpretation: Sinus Tachycardia Imaging FINDINGS: No acute airspace consolidation. No pleural effusion. The cardiomediastinal silhouette is unremarkable. IMPRESSION: 1. No acute cardiopulmonary process. ED Course/Re-evaluation ED Course Upon arrival to the ED patient admitted to an exam room, hx and physical obt ained, differentials considered. Patient presents to ED with tachycardia, high blood pressure, and SOB. 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 He had a recent infection with pneumonia. Reports he has had SOB on and off since that time, but today the shortness of breath seems worse. Patient has hx of bipolar disorder, ADHD, anxiety, and depression. Reports he feels like he is in a manic episode, but Mirna stated he was not in a manic episode. Patient was also in the ED on 03/11 with shortness of breath. No diagnosis was found. Denies fever, fatigue, chest pain, palpitations, abdominal pain. On exam, lungs are clear, heart rate tachy, no abdominal pain with palpation. IV started. CBC, CMP, UA, chest x-ray obtained. 1000ml NS infused. EKG with sinus tachycardia at 120 bpm with occasional PVCs. Chest x-ray clear. Potassium critical at 2.9. 20 mEq of potassium administered orally and 20 mEq of potassium administered IV. Due to abnormal EKG and patient symptoms, troponin checked. Troponin level 0.118. Patient then expressed headache and some anxiety, so 600mg ibuprofen and 5mg of diazepam given. Troponin rechecked 3 hours later and it elevated to 0.137. EKG rechecked showing sinus rhythm with sinus arrhythmia at 96 bpm. Discussed with patient about importance of transferring to [place] for cardiology consult of elevated Troponin. Patient is in agreement with plan of care. Dr. Randhawa, hospitalist, was consulted from [facility]. He will accept the patient. He request another 20 mEq of oral potassium and a heparin drip be administered. PTT ordered. Will transfer patient to [place]. Decision to Disposition Date: Mar 17, 2019 Decision to Disposition Time: 22:07 Depart Departure Latest Vital Signs Vital Signs Date Time Temp Pulse Resp B/P (MAP) Pulse Ox O2 Delivery O2 Flow Rate FiO2 03/17/19 20:57 100 9 91 03/17/19 17:54 132/93 (106) 03/17/19 17:27 98.4 Room Air Impression: Primary Impression: NSTEMI (non-ST elevated myocardial infarction) Condition: Condition Unchanged Disposition: XFER TO [facility] Referrals: SWETHA SALDIVAR DO (PCP) JACKELINE ROGERS Mar 17, 2019 17:32
[2019-03-17] MEDS ORDERED: NS(*) 0.9% 1000 ML BAG 1,000 ML IV ONE ×2 (17:45→18:31)
[2019-03-17 17:54] VITALS: BP 132/93
[2019-03-17 18:02] LABS: PLATELET COUNT, AUTOMATED 224 K/uL (150-450)
[2019-03-17] MEDS ORDERED: POTASSIUM CHL 20 MEQ TABCR PO ONE ×2 (18:20→22:05)
[2019-03-17] MEDS ORDERED: KCL (*) 20 MEQ/100 ML PREMIX 100 ML IV ONE (18:20)
--- NOTE | 2019-03-17 19:16 | RADIOLOGY IMAGING REPORT ---
[place] [facility] [place] Venancio Walton : 1960 MR: [id number] V: [id number] EXAM DATE: ORDERING PHYSICIAN: JACKELINE ROGERS TECHNOLOGIST: Location: [facility] Patient: Venancio Walton : 1960 Visit/Account:[id number] Date of Sevice: 03/17/2019 Technique: CHEST SINGLE AP HISTORY: tachycardia Comparison studies: March 03, 2019, February 26, 2019 FINDINGS: No acute airspace consolidation. No pleural effusion. The cardiomediastinal silhouette is u nremarkable. IMPRESSION: 1. No acute cardiopulmonary process. Report Dictated By: Cody Banerjee DO at 03/17/2019 7:09 PM Report E-Signed By: Cody Banerjee DO at 03/17/2019 7:13 PM WSN:[id number]
[2019-03-17] MEDS ORDERED: IBUPROFEN 600 MG TAB PO ONE (19:40)
[2019-03-17] MEDS ORDERED: DIAZEPAM 5 MG TAB PO ONE ×2 (20:15→23:05)
--- NOTE | 2019-03-17 21:27 | EKG ---
FACILITY: [facility] - [place] PATIENT NAME: NANCI EDWARDS : [id number] MR: [id number] V: [id number] EXAM DATE: ORDERING PHYSICIAN: JACKELINE ROGERS TECHNOLOGIST: NIRANJAN Hitchcock Reason : REPEAT Blood Pressure : / mmHG Vent. Rate : 096 BPM Atrial Rate : 096 BPM P-R Int : 134 ms QRS Dur : 074 ms QT Int : 354 ms P-R-T Axes : 050 023 078 degrees QTc Int : 447 ms Sinus rhythm with PAC Poor R wave progression anteriorly No acute appearing findings Confirmed by PATRICIA AWAD ([id number] on 03/17/2019 9:55:37 PM Referred By: Confirmed By:PATRICIA AWAD
[2019-03-17] MEDS ORDERED: HEPARIN SOD/D5W 25000/250 ML 250 ML IV ONE ×2 (22:01→22:15)
[2019-03-17] MEDS ORDERED: HEPARIN (PORC) 5000 UN/ML VIAL IVP ONE (22:05)
[2019-03-17] MEDS ORDERED: HEPARIN* SOD/D5W 25000 U/500ML 500 ML IV ONE (22:08)
--- NOTE | 2019-03-18 07:39 | EKG ---
FACILITY: [facility] - [place] PATIENT NAME: NANCI EDWARDS : [id number] MR: [id number] V: [id number] EXAM DATE: ORDERING PHYSICIAN: NATALIA DAVIES TECHNOLOGIST: Test Reason : Blood Pressure : / mmHG Vent. Rate : 120 BPM Atrial Rate : 120 BPM P-R Int : 136 ms QRS Dur : 072 ms QT Int : 322 ms P-R-T Axes : 049 020 069 degrees QTc Int : 455 ms Sinus tachycardia with premature supraventricular complexes with occasional premature ventricular com plexes Anterior infarct , age undetermined Abnormal ECG When compared with ECG of 11-MAR-2019 18:05, premature ventricular complexes are now present premature supraventricular complexes are now present Confirmed by GRACE WILLINGHAM ([id number]) on 03/18/2019 2:27:57 PM Referred By: Confirmed By:GRACE WILLINGHAM
== END 2019-03-17 23:25 | disposition short-term general hospital (02) ==
LOC: ER 17:58
DX: I21.4 Non-ST elevation (NSTEMI) myocardial infarction (principal)
CPT/HCPCS: 36415; 36416; 71045; 82948; 84484; 85025; 93005; 96361; 96365; 96366; 99285; A9270; J1644; J3480; J7030; 82040; 82247; 82310; 82374; 82435; 82565; 82947; 84075; 84132; 84155; 84295; 84450; 84460; 84520

== ENCOUNTER → 2019-03-17 | Outpatient (CLI) | payer MEDICARE, MEDICAID ==
[~2019-03-17] MED LIST changes: +DOXY50SY2 PO
== END ==
LOC: AMB 23:03
PROVIDERS: ATTEND Nurse Practitioner
DX: R79.89 Other specified abnormal findings of blood chemistry (principal); I21.4 Non-ST elevation (NSTEMI) myocardial infarction; E87.6 Hypokalemia; R09.02 Hypoxemia
CPT/HCPCS: A0425; A0426

== ENCOUNTER 2019-04-08 19:07 | Emergency (ER) | payer MEDICARE, MEDICAID ==
[2019-04-08] MEDS ORDERED: NS(*) 0.9% 500 ML BAG 500 ML IV ONE (20:00)
[2019-04-08 20:26] LABS: PLATELET COUNT, AUTOMATED 393 K/uL (150-450)
--- NOTE | 2019-04-08 21:05 | EKG ---
FACILITY: [facility] - [place] PATIENT NAME: NANCI EDWARDS : [id number] MR: [id number] V: [id number] EXAM DATE: ORDERING PHYSICIAN: LORENZO DAVIES TECHNOLOGIST: NIRANJAN Test Reason : DYSPNEA Blood Pressure : / mmHG Vent. Rate : 096 BPM Atrial Rate : 096 BPM P-R Int : 130 ms QRS Dur : 074 ms QT Int : 354 ms P-R-T Axes : 051 069 084 degrees QTc Int : 447 ms Sinus rhythm with premature atrial complexes R wave progression consistent with an old ant/sep KS vs lead placement When compared with ECG of 17-MAR-2019 21:18, Relatively unchanged Confirmed by JORDAN GAITAN ([id number]) on 04/09/2019 12:06:31 AM Referred By: Confirmed By:JORDAN GAITAN
--- NOTE | 2019-04-08 21:30 | ER Report ---
History and Physical Time Seen By MD: 19:10 Hx. of Stated Complaint: sob all day. was supposed to be on o2, doesn't have an order yet HPI/ROS CHIEF COMPLAINT: Shortness of breath HISTORY OF PRESENT ILLNESS: 59-year-old male presents for shortness of breath. He is 2 weeks status post CABG. This went well without competitions. This was due to severe CHF. He was discharged home with oxygen to be on 2 L. He states that he ran out of oxygen's morning. He developed shortness of breath midafternoon when he was sitting. He states that shortness of breath had gradually in creased but is somewhat better now. He states that shortness of breath was worse with walking. It was not worse with lying down. He has had no leg swelling. He has had no history of DVT or PE. He has had chills today. He has had cough with productive sputum. He has had no chest pain or pressure. He feels his wounds are healing well. He has no UTI symptoms. REVIEW OF SYSTEMS: Constitutional: above Eyes: No discharge. ENT: No sore throat. Cardiovascular: No chest pain, no palpitations. Respiratory: above Gastrointestinal: No abdominal pain, no vomiting. Genitourinary: no dysuria Musculoskeletal: No back pain. Skin: No rashes. Neurological: No headache. Remainder of the 14 system rev: Yes Allergies: Coded Allergies: Penicillins (Verified Allergy, Unknown, 04/08/19) Home Meds Active Scripts Cephalexin (KEFLEX) 250 Mg Capsule, 500 MG PO Q12H for 7 Days, #14 CAP Prov:LORENZO DAVIES MD 04/08/19 Azithromycin (ZITHROMAX) 250 Mg Tablet, 1 TAB PO QDAY for 4 Days, #4 TAB Prov:LORENZO DAVIES MD 04/08/19 Doxycycline Calcium (VIBRAMYCIN) 50 Mg/5 Ml Syrup, 100 MG PO BID for 7 Days, #14 TAB Prov:JOSSELIN KESSLER DO 03/11/19 Prednisone (PREDNISONE) 50 Mg Tablet, 50 MG PO QDAY for 5 Days, #5 TAB Prov:JOSSELIN KESSLER DO 03/11/19 Naproxen Sodium (ALEVE) 220 Mg Capsule, 440 MG PO TID, #30 CAPSULE Prov:JOSSELIN KESSLER DO 8/6/18 Ondansetron (ZOFRAN ODT) 4 Mg Tab.rapdis, 4 MG PO Q6H PRN for NAUSEA/VOMITING, #20 TAB 0 Refills Prov:SOHA BRAXTON MD 09/12/16 Reported Medications Insulin Lispro 100 Un/Ml Vial (HUMALOG 100 U/ML VIAL) 100 Unit/1 Ml Vial, SQ DIRECTED, VIAL 08/29/16 Methotrexate Sodium (METHOTREXATE) 2.5 Mg Tablet, 1 TAB PO WEEKLY, #32 08/29/16 Insulin Glargine,Hum.rec.anlog (Toujeo Solostar) 300 Unit/1 Ml Insuln.pen, 1 UNIT SQ DIRECTED, #12 08/29/16 Tamsulosin Hcl (FLOMAX) 0.4 Mg Cap.er.24h, 0.4 MG PO QDAY, #20 TAKE WITH FOOD. 10/16/13 Lactobacillus Combination No.4 (PROBIOTIC) 1 Each Capsule, 1 EACH PO BID, CAPSULE 10/13/13 Metoclopramide Hcl (METOCLOPRAMIDE HCL) 5 Mg/5 Ml Solution, 5 MG PO QID PRN 10/13/13 Albuterol Sulfate 90 Mcg/Act (PROAIR HFA 90 MCG/ACT) 8.5 Gm Hfa.aer.ad, 2 PUFF IH Q4-6H PRN 10/13/13 Montelukast Sodium (SINGULAIR) 10 Mg Tablet, 1 TAB PO QDAY TAKE ONE TABLET BY MOUTH EVERY DAY 10/13/13 Aripiprazole (ABILIFY) 2 Mg Tablet, 2 MG PO QDAY, TAB 10/13/13 Folic Acid (FOLIC ACID) 1 Mg Tablet, 1 MG PO DAILY 07/18/13 Metformin Hcl (METFORMIN HCL ER) 500 Mg Tab.er.24, 2 TAB PO BID TAKE TWO TABLETS BY MOUTH TWICE DAILY WITH FOOD 07/18/13 Fenofibrate (FENOFIBRATE) 160 Mg Tablet, 160 MG PO QDAY 07/18/13 Clonazepam (KLONOPIN) 0.5 Mg Tablet, 0.5 MG PO BID 07/18/13 Topiramate (TOPAMAX) 200 Mg Tablet, 200 MG PO BID 07/18/13 Rosuvastatin Calcium (CRESTOR) 20 Mg Tablet, 20 MG PO HS 07/18/13 Olanzapine (OLANZAPINE) 2.5 Mg Tablet, 2.5 MG PO HS 07/18/13 Lisinopril (LISINOPRIL) 10 Mg Tablet, 10 MG PO QDAY 07/18/13 Atomoxetine Hcl (STRATTERA) 40 Mg Capsule, 40 MG PO DAILY 07/18/13 Reviewed Nurses Notes: Yes Old Medical Records Reviewed: Yes Hx Smoking: Yes Smoking Status: Former Smoker Exposure to Second Hand Smoke?: No Hx Substance Use Disorder: No Hx Alcohol Use: Yes Constitutional Vital Sign - Last 24 Hours 04/08/19 04/08/19 04/08/19 04/08/19 19:07 19:25 19:30 19:37 Pulse ??? 98 Resp 6 B/P (MAP) 115/70 (85) 99/58 (72) Pulse Ox 91 04/08/19 04/08/19 04/08/19 04/08/19 20:00 20:03 20:07 20:12 Temp 98.9 Pulse 98 99 94 Resp 20 78 34 B/P (MAP) 107/60 (76) 107/60 Pulse Ox 97 95 96 O2 Delivery Room Air 04/08/19 04/08/19 04/08/19 04/08/19 20:20 20:42 21:00 21:00 Pulse 86 90 Resp 21 16 Pulse Ox 96 82 98 O2 Flow Rate 2.0 04/08/19 04/08/19 04/08/19 04/08/19 21:13 21:30 22:00 22:15 Pulse ? B/P (MAP) 120/86 (97) 118/91 (100) 04/09/19 00:27 Resp 17 B/P (MAP) 112/90 (97) Pulse Ox 92 Intake and Output 04/08/19 04/08/19 04/09/19 15:01 23:01 07:01 Intake Total 600 ml 250 ml Balance 600 ml 250 ml Physical Exam General Appearance: The patient is alert, has no immediate need for airway protection and no signs of toxicity. Eyes: Pupils equal and round no pallor or injection. ENT, Mouth: Mucous membranes are moist. Respiratory: There are no retractions, lungs are clear to auscultation. Chest wall - CABG sutures in place, mild erythema c/w wound healing, no ttp or fluctuance. Cardiovascular: Regular rate and rhythm. iii/vi systolic murmur Gastrointestinal: abdomen is soft and nontender Neurological: alert, oriented, grossly nl Skin: Warm and dry, no rashes. Musculoskeletal: Neck is supple non tender. Extremities are nontender, nonswollen and have full range of motion. DIFFERENTIAL DIAGNOSIS: After history and physical exam differential diagnosis was considered for shortness of breath including but not limited to pulmonary infectious process, COPD, asthma, pulmonary embolus and congestive heart failure, acs. Medical Decision Making Data Points Result Diagram: 04/08/19201404/08/192014 Laboratory Hematology Test 04/08/19 20:15 04/08/19 21:07 04/08/19 23:04 Red Blood Count 3.97 M/uL (4.00-5.60) Mean Corpuscular Volume 85.6 fL (80.0-96.0) Mean Corpuscular Hemoglobin 29.2 pg (26.0-33.0) Mean Corpuscular Hemoglobin Concent 34.1 g/dL (32.0-36.0) Red Cell Distribution Width 13.4 % (11.5-14.5) Mean Platelet Volume 7.9 fL (7.2-11.1) Neutrophils (%) (Auto) 67.4 % (39.4-72.5) Lymphocytes (%) (Auto) 16.9 % (17.6-49.6) Monocytes (%) (Auto) 8.2 % (4.1-12.4) Eosinophils (%) (Auto) 6.7 % (0.4-6.7) Basophils (%) (Auto) 0.8 % (0.3-1.4) Nucleated RBC Relative Count (auto) 0.0 /100WBC Neutrophils # (Auto) 7.4 K/uL (2.0-7.4) Lymphocytes # (Auto) 1.9 K/uL (1.3-3.6) Monocytes # (Auto) 0.9 K/uL (0.3-1.0) Eosinophils # (Auto) 0.7 K/uL (0.0-0.5) Basophils # (Auto) 0.1 K/uL (0.0-0.1) Nucleated RBC Absolute Count (auto) 0.00 K/uL Sodium Level 141 mmol/L (137-145) Potassium Level 4.2 mmol/L (3.5-5.0) Chloride Level 104 mmol/L (98-107) Carbon Dioxide Level 26 mmol/L (22-30) Blood Urea Nitrogen 12 mg/dl (9-21) Creatinine 1.00 mg/dl (0.66-1.25) Glomerular Filtration Rate Calc > 60.0 Random Glucose 110 mg/dl (75-110) Calcium Level 8.3 mg/dl (8.4-10.2) Total Bilirubin 0.3 mg/dl (0.2-1.3) Aspartate Amino Transf (AST/SGOT) 21 U/L (0-35) Alanine Aminotransferase (ALT/SGPT) 33 U/L (0-56) Alkaline Phosphatase 144 U/L (0-126) B-Type Natriuretic Peptide 1530 pg/ml (0-100) Total Protein 5.9 g/dl (6.3-8.2) Albumin 3.2 g/dl (3.5-5.0) Urine Color Yellow Urine Clarity Clear Urine pH 7.0 pH (4.8-9.5) Urine Specific [place] 1.011 Urine Protein 100 mg/dL (NEGATIVE) Urine Glucose (UA) Negative mg/dL (NEGATIVE) Urine Ketones Negative mg/dL (NEGATIVE) Urine Blood Negative (NEGATIVE) Urine Nitrite Negative (NEGATIVE) Urine Bilirubin Negative (NEGATIVE) Urine Urobilinogen 2.0 mg/dL (0.2-1.9) Urine Leukocyte Esterase Negative (NEGATIVE) Urine RBC 1 /HPF (0-2/HPF) Urine WBC <1 /HPF (0-5/HPF) Urine Squamous Epithelial Cells Few /LPF (</=FEW) Urine Bacteria Negative /HPF (NONE-FEW) Urine Mucus None /HPF (NONE-FEW) Troponin I 0.063 ng/ml Chemistry Test 04/08/19 20:15 04/08/19 21:07 04/08/19 23:04 White Blood Count 11.0 k/uL (4.5-11.0) Red Blood Count 3.97 M/uL (4.00-5.60) Hemoglobin 11.6 g/dL (14.0-18.0) Hematocrit 34.0 % (42.0-52.0) Mean Corpuscular Volume 85.6 fL (80.0-96.0) Mean Corpuscular Hemoglobin 29.2 pg (26.0-33.0) Mean Corpuscular Hemoglobin Concent 34.1 g/dL (32.0-36.0) Red Cell Distribution Width 13.4 % (11.5-14.5) Platelet Count 393 K/uL (150-450) Mean Platelet Volume 7.9 fL (7.2-11.1) Neutrophils (%) (Auto) 67.4 % (39.4-72.5) Lymphocytes (%) (Auto) 16.9 % (17.6-49.6) Monocytes (%) (Auto) 8.2 % (4.1-12.4) Eosinophils (%) (Auto) 6.7 % (0.4-6.7) Basophils (%) (Auto) 0.8 % (0.3-1.4) Nucleated RBC Relative Count (auto) 0.0 /100WBC Neutrophils # (Auto) 7.4 K/uL (2.0-7.4) Lymphocytes # (Auto) 1.9 K/uL (1.3-3.6) Monocytes # (Auto) 0.9 K/uL (0.3-1.0) Eosinophils # (Auto) 0.7 K/uL (0.0-0.5) Basophils # (Auto) 0.1 K/uL (0.0-0.1) Nucleated RBC Absolute Count (auto) 0.00 K/uL Glomerular Filtration Rate Calc > 60.0 Calcium Level 8.3 mg/dl (8.4-10.2) Total Bilirubin 0.3 mg/dl (0.2-1.3) Aspartate Amino Transf (AST/SGOT) 21 U/L (0-35) Alanine Aminotransferase (ALT/SGPT) 33 U/L (0-56) Alkaline Phosphatase 144 U/L (0-126) B-Type Natriuretic Peptide 1530 pg/ml (0-100) Total Protein 5.9 g/dl (6.3-8.2) Albumin 3.2 g/dl (3.5-5.0) Urine Color Yellow Urine Clarity Clear Urine pH 7.0 pH (4.8-9.5) Urine Specific [place] 1.011 Urine Protein 100 mg/dL (NEGATIVE) Urine Glucose (UA) Negative mg/dL (NEGATIVE) Urine Ketones Negative mg/dL (NEGATIVE) Urine Blood Negative (NEGATIVE) Urine Nitrite Negative (NEGATIVE) Urine Bilirubin Negative (NEGATIVE) Urine Urobilinogen 2.0 mg/dL (0.2-1.9) Urine Leukocyte Esterase Negative (NEGATIVE) Urine RBC 1 /HPF (0-2/HPF) Urine WBC <1 /HPF (0-5/HPF) Urine Squamous Epithelial Cells Few /LPF (</=FEW) Urine Bacteria Negative /HPF (NONE-FEW) Urine Mucus None /HPF (NONE-FEW) Troponin I 0.063 ng/ml Urinalysis Test 04/08/19 21:07 Urine Color Yellow Urine Clarity Clear Urine pH 7.0 pH (4.8-9.5) Urine Specific [place] 1.011 Urine Protein 100 mg/dL (NEGATIVE) Urine Glucose (UA) Negative mg/dL (NEGATIVE) Urine Ketones Negative mg/dL (NEGATIVE) Urine Blood Negative (NEGATIVE) Urine Nitrite Negative (NEGATIVE) Urine Bilirubin Negative (NEGATIVE) Urine Urobilinogen 2.0 mg/dL (0.2-1.9) Urine Leukocyte Esterase Negative (NEGATIVE) Urine RBC 1 /HPF (0-2/HPF) Urine WBC <1 /HPF (0-5/HPF) Urine Squamous Epithelial Cells Few /LPF (</=FEW) Urine Bacteria Negative /HPF (NONE-FEW) Urine Mucus None /HPF (NONE-FEW) EKG/Imaging EKG Interpretation 12 lead EKG: Rhythm: normal sinus rhythm [place]: normal QRS: normal ST segments: normal no stemi, unremarkable architecture manager Interpretation: Normal Sinus Rhythm ED Course/Re-evaluation ED Course 59 y/o m presents with dyspnea today. Given proximity to cabg, I considered PE, however infectious cause is more likely as this is more c/w symptoms. CXR ordered and does show new opacity; given preponderance of symptoms, I think this is most likely cause of pt's symptoms. BNP and trop elevations are expected post op; will rpt trop to ensure this is not increasing c/w acute acs. CXR does not show e/o pulm edema. Pt tolerated rocephin in ED without reaction; would expect keflex to have low likelihood of cross reactivity with remote pcn hive reported from childhood Pt remains hd stable in ED with borderline 02 that may be c/w his post op course; will d/c with 02; Decision to Disposition Date: Apr 09, 2019 Decision to Disposition Time: 00:26 Depart Departure Latest Vital Signs Vital Signs Date Time Temp Pulse Resp B/P (MAP) Pulse Ox O2 Delivery O2 Flow Rate FiO2 04/09/19 00:27 17 112/90 (97) 92 04/08/19 22:00 ??? 04/08/19 20:20 2.0 04/08/19 20:03 98.9 Room Air Impression: Primary Impression: Pneumonia Condition: Improved Disposition: HOME OR SELF-CARE Referrals: SWETHA SALDIVAR DO (PCP) 5 Days New Scripts Cephalexin (KEFLEX) 250 Mg Capsule 500 MG PO Q12H for 7 Days, #14 CAP Prov: LORENZO DAVIES MD 04/08/19 Azithromycin (ZITHROMAX) 250 Mg Tablet 1 TAB PO QDAY for 4 Days, #4 TAB Prov: LORENZO DAVIES MD 04/08/19 Patient Instructions: Bacterial Pneumonia (ED) Additional Instructions: Please return immediately for worsening difficulty breathing, concerning chest pain, leg swelling, or any concerns. Problem Qualifiers Primary Impression: Pneumonia Pneumonia type: due to unspecified organism Laterality: unspecified laterality Lung location: unspecified part of lung Qualified Codes: J18.9 - Pneumonia, unspecified organism LORENZO DAVIES MD Apr 08, 2019 21:30
--- NOTE | 2019-04-08 21:38 | RADIOLOGY IMAGING REPORT ---
FACILITY: [facility] - [place] PATIENT NAME: Venancio Walton : 1960 MR: [id number] V: [id number] EXAM DATE: ORDERING PHYSICIAN: LORENZO DAVIES TECHNOLOGIST: Location: [facility] Patient: Venancio Walton : 1960 Visit/Account:[id number] Date of Sevice: 04/08/2019 2 VIEWS CHEST INDICATION: Dyspnea and chest pain. COMPARISON: 03/17/2019. FINDINGS: Cardiomediastinal silhouette and pulmonary vessels within normal limits. Sternotomy and CABG changes . Along the posterior mid pleural surface of the chest on the lateral view is a ovoid opacity. The angelica gs are otherwise clear. There is no pneumothorax or pleural effusion. Upper abdomen is unremarkable. No acute bony abnormality. IMPRESSION: 1. On the lateral view of the mid chest there is a pleural-based ovoid opacity. This could represen t a mass, focal early infiltrate or atelectasis. Follow-up CT scan of the chest with contrast. Report Dictated By: Mark Hernandez at 04/08/2019 9:27 PM Report E-Signed By: Mark Hernandez at 04/08/2019 9:31 PM [id number]
[2019-04-08] MEDS ORDERED: cefTRIAXone(*) 1 GM VIAL 1 GM in NS(*) 0.9% 100 ML MINI-BAG 100 ML IVPB ONE (21:45)
[2019-04-08] MEDS ORDERED: AZITHROMYCIN(*) 500 MG 500 MG in NS(*) 0.9% 250 ML BAG 250 ML IVPB ONE (21:45)
[2019-04-08] MEDS ORDERED: CEPH250C37 PO (23:37)
[2019-04-08] MEDS ORDERED: AZIT-1 PO (23:37)
[2019-04-09 00:27] VITALS: BP 112/90
== END 2019-04-09 00:59 | disposition home or self-care (01) ==
LOC: ER 19:55
DX: J18.9 Pneumonia, unspecified organism (principal)
CPT/HCPCS: 36416; 71046; 81001; 82948; 83880; 84484; 85025; 93005; 96361; 96365; 96367; 99284; J0456; J0696; J7040; J7050; 82040; 82247; 82310; 82374; 82435; 82565; 82947; 84075; 84132; 84155; 84295; 84450; 84460; 84520

== ENCOUNTER 2019-04-13 05:07 | Emergency (ER) | payer MEDICARE, MEDICAID ==
[~2019-04-13 05:07] MED LIST changes: +CEPH250C37 PO
--- NOTE | 2019-04-13 05:25 | ER Report ---
History and Physical Time Seen By MD: 05:23 Hx. of Stated Complaint: patient diagnosed with pneumonia, states having increased shortness of breath since 0300. (SOHA LOYD MD) Time Seen By MD: 06:53 (JOSSELIN KESSLER DO) HPI/ROS CHIEF COMPLAINT: weakness and shortness of breath. HISTORY OF PRESENT ILLNESS: This is a 59 year old male. He was seen a few days ago with shortness of breath, diagnosed with pneumonia. He says the antibiotics have not been helping. On chart review, he was given Rocephin and then oral Cephalexin. He has had continued cough, but is non-productive. 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 Also diagnosed with CHF with LVEF <25% at that time. Has asthma as well. Has had some wheezing. Chest x-ray on last visit showed a pleural based nodular opacity in mid chest on lateral view that could be a mass or infiltrate. Labs were normal at that time. He denies having fevers or chills the last few days. He is on oxygen after his CABG and says it does seem to help. He is actually more concerned about ongoing severe general weakness than the shortness of breath. Chest wall incision has been healing well and is pain free without any redness, warmth or drainage. Eating and drinking without problems. Denies reflux. No nausea. Normal bowel and bladder function. REVIEW OF SYSTEMS: Constitutional: No fever or chills. Eyes: No vision changes. ENT: No sore throat. No congestion. Cardiovascular: No chest pain. Respiratory: As above. Gastrointestinal: No abdominal pain. No nausea or vomiting. Genitourinary: No dysuria. No frequency Musculoskeletal: No musculoskeletal pain other than some chronic shoulder problems. Skin: No rashes. Neurological: No headache. (SOHA LOYD MD) HPI/ROS Please see Dr. Loyd note (JOSSELIN KESSLER DO) Allergies: Coded Allergies: Penicillins (Verified Allergy, Unknown, 04/13/19) Home Meds Active Scripts Cephalexin (KEFLEX) 250 Mg Capsule, 500 MG PO Q12H for 7 Days, #14 CAP Prov:LORENZO DAVIES MD 04/08/19 Doxycycline Calcium (VIBRAMYCIN) 50 Mg/5 Ml Syrup, 100 MG PO BID for 7 Days, #14 TAB Prov:JOSSELIN KESSLER DO 03/11/19 Prednisone (PREDNISONE) 50 Mg Tablet, 50 MG PO QDAY for 5 Days, #5 TAB Prov:JOSSELIN KESSLER DO 03/11/19 Naproxen Sodium (ALEVE) 220 Mg Capsule, 440 MG PO TID, #30 CAPSULE Prov:JOSSELIN KESSLER DO 05/20/18 Ondansetron (ZOFRAN ODT) 4 Mg Tab.rapdis, 4 MG PO Q6H PRN for NAUSEA/VOMITING, #20 TAB 0 Refills Prov:SOHA LOYD MD 09/12/16 Reported Medications Insulin Lispro 100 Un/Ml Vial (HUMALOG 100 U/ML VIAL) 100 Unit/1 Ml Vial, SQ DIRECTED, VIAL 08/29/16 Methotrexate Sodium (METHOTREXATE) 2.5 Mg Tablet, 1 TAB PO WEEKLY, #32 08/29/16 Insulin Glargine,Hum.rec.anlog (Toujeo Solostar) 300 Unit/1 Ml Insuln.pen, 1 UNIT SQ DIRECTED, #12 08/29/16 Tamsulosin Hcl (FLOMAX) 0.4 Mg Cap.er.24h, 0.4 MG PO QDAY, #20 TAKE WITH FOOD. 10/16/13 Lactobacillus Combination No.4 (PROBIOTIC) 1 Each Capsule, 1 EACH PO BID, CAPSULE 10/13/13 Metoclopramide Hcl (METOCLOPRAMIDE HCL) 5 Mg/5 Ml Solution, 5 MG PO QID PRN 10/13/13 Albuterol Sulfate 90 Mcg/Act (PROAIR HFA 90 MCG/ACT) 8.5 Gm Hfa.aer.ad, 2 PUFF IH Q4-6H PRN 10/13/13 Montelukast Sodium (SINGULAIR) 10 Mg Tablet, 1 TAB PO QDAY TAKE ONE TABLET BY MOUTH EVERY DAY 10/13/13 Aripiprazole (ABILIFY) 2 Mg Tablet, 2 MG PO QDAY, TAB 10/13/13 Folic Acid (FOLIC ACID) 1 Mg Tablet, 1 MG PO DAILY 07/18/13 Metformin Hcl (METFORMIN HCL ER) 500 Mg Tab.er.24, 2 TAB PO BID TAKE TWO TABLETS BY MOUTH TWICE DAILY WITH FOOD 07/18/13 Fenofibrate (FENOFIBRATE) 160 Mg Tablet, 160 MG PO QDAY 07/18/13 Clonazepam (KLONOPIN) 0.5 Mg Tablet, 0.5 MG PO BID 07/18/13 Topiramate (TOPAMAX) 200 Mg Tablet, 200 MG PO BID 07/18/13 Rosuvastatin Calcium (CRESTOR) 20 Mg Tablet, 20 MG PO HS 07/18/13 Olanzapine (OLANZAPINE) 2.5 Mg Tablet, 2.5 MG PO HS 07/18/13 Lisinopril (LISINOPRIL) 10 Mg Tablet, 10 MG PO QDAY 07/18/13 Atomoxetine Hcl (STRATTERA) 40 Mg Capsule, 40 MG PO DAILY 07/18/13 Discontinued Scripts Azithromycin (ZITHROMAX) 250 Mg Tablet, 1 TAB PO QDAY for 4 Days, #4 TAB Prov:LORENZO DAVIES MD 04/08/19 Past Medical/Surgical History Coronary artery disease, heart failure, hypertension, hyperlipidemia, rheumatoid arthritis, type 2 diabetes, ADHD, bipolar, anxiety with panic attacks, chronic shoulder pain. (SOHA LOYD MD) Reviewed Nurses Notes: Yes (SOHA LOYD MD) Hx Smoking: Yes Smoking Status: Former Smoker Exposure to Second Hand Smoke?: No Hx Substance Use Disorder: No Hx Alcohol Use: Yes (SOHA LOYD MD) Constitutional Vital Sign - Last 24 Hours 04/13/19 04/13/19 04/13/19 04/13/19 05:12 05:22 05:30 05:37 Temp 97.5 Pulse 102 91 90 Resp 16 10 24 B/P (MAP) 130/79 128/89 (102) Pulse Ox 94 95 87 04/13/19 04/13/19 04/13/19 04/13/19 05:51 05:51 05:52 05:54 Pulse 90 98 97 Resp 1 35 14 Pulse Ox 93 94 O2 Delivery Room Air 04/13/19 04/13/19 04/13/19 04/13/19 06:00 06:07 06:22 06:27 Pulse 95 ? Resp 14 32 B/P (MAP) 125/80 (95) Pulse Ox 94 96 04/13/19 04/13/19 04/13/19 06:41 06:57 07:00 Pulse 96 Resp 52 B/P (MAP) 123/74 (90) 126/82 (97) Pulse Ox 91 Intake and Output 04/12/19 04/12/19 04/13/19 15:02 23:02 07:02 Intake Total 150 ml Balance 150 ml (JOSSELIN KESSLER DO) Physical Exam General Appearance: The patient is alert. No acute distress. Eyes: Pupils are equal, round. No pallor, injection or icterus. ENT: Mucous membranes are moist. Normal oral mucosa. Posterior oropharynx is normal. Neck: Supple and non-tender. Respiratory: Breathing easily and unlabored. Lungs with some expiratory wheezes. Have some coarse sounds in bases. Cardiovascular: Regular rate and rhythm. Has a 2/6 systolic murmur. No rubs. Normal capillary refill. Gastrointestinal: Abdomen is soft and non tender. Nondistended. Normal active bowel sounds. Neurological: Alert and oriented x3. No focal neurologic deficits but with some generalized weakness. Skin: Warm and dry. Chest incision is healing well, scab in place, no redness, warmth or purulence. Musculoskeletal: Extremities are nontender. No tenderness in palpation of the cervical, thoracic and lumbar spine. DIFFERENTIAL DIAGNOSIS: After history and physical exam, differential diagnosis was considered for shortness of breath including but not limited to pulmonary infectious process, asthma worsening, pulmonary embolus and congestive heart failure, further evaluation of the abnormal chest x-ray given continued symptoms to be done with CTA at this time. (SOHA LOYD MD) Physical Exam Please see Dr. Loyd note (JOSSELIN KESSLER DO) Medical Decision Making Data Points Result Diagram: 04/13/19 0543 04/13/19 0543 Laboratory Hematology Test 04/13/19 05:43 Red Blood Count 3.71 M/uL (4.00-5.60) Mean Corpuscular Volume 85.7 fL (80.0-96.0) Mean Corpuscular Hemoglobin 29.7 pg (26.0-33.0) Mean Corpuscular Hemoglobin Concent 34.6 g/dL (32.0-36.0) Red Cell Distribution Width 13.5 % (11.5-14.5) Mean Platelet Volume 8.7 fL (7.2-11.1) Neutrophils (%) (Auto) 66.0 % (39.4-72.5) Lymphocytes (%) (Auto) 16.8 % (17.6-49.6) Monocytes (%) (Auto) 4.6 % (4.1-12.4) Eosinophils (%) (Auto) 10.7 % (0.4-6.7) Basophils (%) (Auto) 1.9 % (0.3-1.4) Nucleated RBC Relative Count (auto) 0.0 /100WBC Neutrophils # (Auto) 5.4 K/uL (2.0-7.4) Lymphocytes # (Auto) 1.4 K/uL (1.3-3.6) Monocytes # (Auto) 0.4 K/uL (0.3-1.0) Eosinophils # (Auto) 0.9 K/uL (0.0-0.5) Basophils # (Auto) 0.2 K/uL (0.0-0.1) Nucleated RBC Absolute Count (auto) 0.00 K/uL Peripheral Blood Smear Yes Y/N Sodium Level 136 mmol/L (137-145) Potassium Level 4.3 mmol/L (3.5-5.0) Chloride Level 99 mmol/L (98-107) Carbon Dioxide Level 26 mmol/L (22-30) Blood Urea Nitrogen 12 mg/dl (9-21) Creatinine 1.00 mg/dl (0.66-1.25) Glomerular Filtration Rate Calc > 60.0 Random Glucose 238 mg/dl (75-110) Calcium Level 9.2 mg/dl (8.4-10.2) Magnesium Level 1.1 mg/dl (1.7-2.2) Total Bilirubin 0.4 mg/dl (0.2-1.3) Aspartate Amino Transf (AST/SGOT) 15 U/L (0-35) Alanine Aminotransferase (ALT/SGPT) 33 U/L (0-56) Alkaline Phosphatase 152 U/L (0-126) Troponin I 0.025 ng/ml B-Type Natriuretic Peptide 1110 pg/ml (0-100) Total Protein 5.9 g/dl (6.3-8.2) Albumin 3.1 g/dl (3.5-5.0) Chemistry Test 04/13/19 05:43 White Blood Count 8.2 k/uL (4.5-11.0) Red Blood Count 3.71 M/uL (4.00-5.60) Hemoglobin 11.0 g/dL (14.0-18.0) Hematocrit 31.8 % (42.0-52.0) Mean Corpuscular Volume 85.7 fL (80.0-96.0) Mean Corpuscular Hemoglobin 29.7 pg (26.0-33.0) Mean Corpuscular Hemoglobin Concent 34.6 g/dL (32.0-36.0) Red Cell Distribution Width 13.5 % (11.5-14.5) Platelet Count 327 K/uL (150-450) Mean Platelet Volume 8.7 fL (7.2-11.1) Neutrophils (%) (Auto) 66.0 % (39.4-72.5) Lymphocytes (%) (Auto) 16.8 % (17.6-49.6) Monocytes (%) (Auto) 4.6 % (4.1-12.4) Eosinophils (%) (Auto) 10.7 % (0.4-6.7) Basophils (%) (Auto) 1.9 % (0.3-1.4) Nucleated RBC Relative Count (auto) 0.0 /100WBC Neutrophils # (Auto) 5.4 K/uL (2.0-7.4) Lymphocytes # (Auto) 1.4 K/uL (1.3-3.6) Monocytes # (Auto) 0.4 K/uL (0.3-1.0) Eosinophils # (Auto) 0.9 K/uL (0.0-0.5) Basophils # (Auto) 0.2 K/uL (0.0-0.1) Nucleated RBC Absolute Count (auto) 0.00 K/uL Peripheral Blood Smear Yes Y/N Glomerular Filtration Rate Calc > 60.0 Calcium Level 9.2 mg/dl (8.4-10.2) Magnesium Level 1.1 mg/dl (1.7-2.2) Total Bilirubin 0.4 mg/dl (0.2-1.3) Aspartate Amino Transf (AST/SGOT) 15 U/L (0-35) Alanine Aminotransferase (ALT/SGPT) 33 U/L (0-56) Alkaline Phosphatase 152 U/L (0-126) Troponin I 0.025 ng/ml B-Type Natriuretic Peptide 1110 pg/ml (0-100) Total Protein 5.9 g/dl (6.3-8.2) Albumin 3.1 g/dl (3.5-5.0) (JOSSELIN KESSLER DO) EKG/Imaging EKG Interpretation 12 lead EKG: Rhythm: normal sinus rhythm, rate 91 Siler: normal QRS: normal ST segments: normal (SOHA LOYD MD) Imaging PATIENT NAME: Venancio Walton : 1960 MR: [id number] V: [id number] EXAM DATE: ORDERING PHYSICIAN: SOHA LOYD TECHNOLOGIST: Location: [facility] [place] Patient: Venancio Walton : 1960 Visit/Account:[id number] Date of Sevice: 04/13/2019 CTA chest with IV contrast EXAMINATION: CTA of the chest with IV contrast History : Shortness of breath TECHNIQUE: Pulmonary embolus protocol - Thin-slice axial imaging of the chest was performed during maximal pulmonary arterial opacification with intravenous nonionic iodinated contrast. 3D coronal slab MIPs and 2D reconstructions in the coronal and sagittal planes were performed to aid in pulmonary embolus detection. Masonry Teacher images have been stored on PACS. One of the following dose optimization techniques was utilized in the performance of this exam: Automated exposure control; adjustment of the mA and/or kV according to the patient's size; or use of an iterative reconstruction technique. Specific details can be referenced in the facility's radiology CT exam operational policy. Contrast: 75 cc of Isovue-370 COMPARISON STUDIES: Chest x-ray 04/08/2019, CT scan 03/11/2019. FINDINGS: Please note that this exam is optimized for assessment of the pulmonary arteries and is not intended as a diagnostic study of the thoracic aorta, coronary arteries or venous structures. Angiographic Findings: Pulmonary arteries: There are no filling defects in the main, right, left, lo bar, segmental or visualized sub-segmental branches of the pulmonary arterial system Other vasculature: Postoperative changes are noted from recent median sternotomy and cardiac surgery. [place] coronary vessels are heavily calcified.. Additional non-angiographic findings: Lungs / Pleura: Small partially likely the left pleural effusion is noted.. Mediastinum / Alba: Postoperative changes are noted from median sternotomy. Bubble of air in the mediastinum is noted no obvious abscess.. Heart / Pericardium: Enlarged. Coronary vessels are heavily calcified.. Lymph node assessment: negative Musculoskeletal / Body wall: negative Upper abdomen: negative IMPRESSION: 1. No evidence for pulmonary emboli to the subsegmental level. 2. Postoperative changes are noted from recent median sternotomy and CABG surgery. A bubble of air and a small amount of fluid is noted in the mediastinum. No obvious abscess. 3. Small loculated left pleural effusion. (JOSSELIN KESSLER DO) ED Course/Re-evaluation ED Course I assumed patient care from Dr. Loyd at 7:[address] imaging study showed no signs of pulmonary embolisms to the subsegmental branches. I examined the patient and reevaluated his cardiorespiratory physical examination. Lungs are clear to auscultation at this time. Healing sternotomy scar was present. I discussed with the patient that his BNP remained elevated though mildly improved from prior. I discussed with the patient the importance of calling cardiology today at [facility] and discussing next steps and treatment. Patient will start cardiac physical therapy next week. Patient was hemodynamically stable at time of discharge, well-appearing in no acute distress. Patient will continue to take his antibiotics which were prescribed at his last emergency department visit. Patient voiced understanding of plan, return precautions provided. Close PCP follow-up recommended. Decision to Disposition Date: Apr 13, 2019 Decision to Disposition Time: 07:41 (JOSSELIN KESSLER DO) Depart Departure Latest Vital Signs Vital Signs Date Time Temp Pulse Resp B/P (MAP) Pulse Ox O2 Delivery O2 Flow Rate FiO2 04/13/19 07:00 126/82 (97) 04/13/19 06:57 96 52 91 04/13/19 05:51 Room Air 04/13/19 05:12 97.5 (JOSSELIN KESSLER DO) Impression: Primary Impression: Shortness of breath Condition: Improved Disposition: HOME OR SELF-CARE Referrals: SWETHA SALDIVAR DO (PCP) Patient Instructions: Dyspnea (GEN) Additional Instructions: Please follow up with cardiology in order to discuss possible need for further treatment. Please continue your antibiotic course until complete. Your CT scan did not identify clots in the lung, obvious signs of infection. Please return promptly if you develop chest pain, worsening shortness breath, fevers, chills, cough, nausea, vomiting. Please make a follow-up appointment with your primary care physician in the next 3-5 days. SOHA LOYD MD Apr 13, 2019 05:25 JOSSELIN KESSLER DO Apr 13, 2019 06:55
[2019-04-13] MEDS ORDERED: NS(*) 0.9% 1000 ML BAG 1,000 ML IV ONE (05:35)
[2019-04-13] MEDS ORDERED: ALBUTEROL/IPRATROPIUM 3 ML NEB NEB ONE (05:35)
[2019-04-13 05:59] LABS: PLATELET COUNT, AUTOMATED 327 K/uL (150-450)
[2019-04-13] MEDS ORDERED: NS(*) 0.9% 50 ML BAG 50 ML ONE (06:29)
[2019-04-13] MEDS ORDERED: IOPAMIDOL 76% 100 ML INFUS BTL 100 ML ONE (06:29)
--- NOTE | 2019-04-13 06:30 | EKG ---
FACILITY: [facility] PATIENT NAME: NANCI EDWARDS : [id number] MR: [id number] V: [id number] EXAM DATE: ORDERING PHYSICIAN: SOHA BRAXTON TECHNOLOGIST: JEFF Test Reason : DYSPNEA Blood Pressure : / mmHG Vent. Rate : 091 BPM Atrial Rate : 091 BPM P-R Int : 140 ms QRS Dur : 078 ms QT Int : 370 ms P-R-T Axes : 047 047 079 degrees QTc Int : 455 ms Normal sinus rhythm Poor R wave progression Normal ECG When compared with ECG of 08-APR-2019 20:04, premature atrial complexes are no longer present Confirmed by VIKI EUBANKS ([id number]) on 04/13/2019 6:37:55 AM Referred By: Confirmed By:VIKI EUBANKS
--- NOTE | 2019-04-13 07:20 | RADIOLOGY IMAGING REPORT ---
[place] [facility] [place] NAME: Venancio Walton : 1960 MR: [id number] V: [id number] EXAM DATE: ORDERING PHYSICIAN: SOHA BRAXTON TECHNOLOGIST: Location: [facility] Patient: Venancio Walton : 1960 Visit/Account:[id number] Date of Sevice: 04/13/2019 CTA chest with IV contrast EXAMINATION: CTA of the chest with IV contrast History : Shortness of breath TECHNIQUE: Pulmonary embolus protocol - Thin-slice axial imaging of the chest was performed during maximal pulmonary arterial opacification with intravenous nonionic iodinated contrast. 3D coronal sla b MIPs and 2D reconstructions in the coronal and sagittal planes were performed to aid in pulmonary e mbolus detection. Retail Receiving Clerk images have been stored on PACS. One of the following dose optimization techniques was utilized in the performance of this exam: Autom ated exposure control; adjustment of the mA and/or kV according to the patient's size; or use of an i terative reconstruction technique. Specific details can be referenced in the facility's radiology C T exam operational policy. Contrast: 75 cc of Isovue-370 COMPARISON STUDIES: Chest x-ray 04/08/2019, CT scan 03/11/2019. FINDINGS: Please note that this exam is optimized for assessment of the pulmonary arteries and is not intended as a diagnostic study of the thoracic aorta, coronary arteries or venous structures. Angiographic Findings: Pulmonary arteries: There are no filling defects in the main, right, left, lobar, segmental or visual ized sub-segmental branches of the pulmonary arterial system Other vasculature: Postoperative changes are noted from recent median sternotomy and cardiac surger y. [place] coronary vessels are heavily calcified.. Additional non-angiographic findings: Lungs / Pleura: Small partially likely the left pleural effusion is noted.. Mediastinum / Alba: Postoperative changes are noted from median sternotomy. Bubble of air in the me diastinum is noted no obvious abscess.. Heart / Pericardium: Enlarged. Coronary vessels are heavily calcified.. Lymph node assessment: negative Musculoskeletal / Body wall: negative Upper abdomen: negative IMPRESSION: 1. No evidence for pulmonary emboli to the subsegmental level. 2. Postoperative changes are noted from recent median sternotomy and CABG surgery. A bubble of air an d a small amount of fluid is noted in the mediastinum. No obvious abscess. 3. Small loculated left pleural effusion. Report Dictated By: Mark Farrell MD at 04/13/2019 7:01 AM Report E-Signed By: Mark Farrell MD at 04/13/2019 7:12 AM WSN:[id number]
[2019-04-13 07:34] VITALS: BP 134/92
== END 2019-04-13 07:53 | disposition home or self-care (01) ==
LOC: ER 05:28
DX: R06.02 Shortness of breath (principal)
CPT/HCPCS: 36416; 71275; 82948; 83735; 83880; 84484; 85025; 93005; 94640; 96360; 99284; J7030; J7050; J7620; Q9967; 82040; 82247; 82310; 82374; 82435; 82565; 82947; 84075; 84132; 84155; 84295; 84450; 84460; 84520

== ENCOUNTER 2019-05-09 20:04 | Emergency (ER) | payer MEDICARE, MEDICAID ==
--- NOTE | 2019-05-09 20:05 | ER Report ---
History and Physical Time Seen By MD: 20:02 HPI/ROS CHIEF COMPLAINT: Chest pain and shortness of breath HISTORY OF PRESENT ILLNESS: 59-year-old male with a recent CABG secondary to cardiac disease. Patient had advanced congestive heart failure. Patient's having chest pain and shortness of breath tonight. He notes no fevers. He has a well-healed surgical incision on his anterior chest wall. Patient notes no leg swelling. Patient is approximately 6 weeks out from his CABG. REVIEW OF SYSTEMS: Respiratory: As above Cardiovascular: As above Gastrointestinal: No vomiting, no abdominal pain. Musculoskeletal: No back pain. Allergies: Coded Allergies: Penicillins (Verified Allergy, Unknown, 05/09/19) Home Meds Active Scripts Cephalexin (KEFLEX) 250 Mg Capsule, 500 MG PO Q12H for 7 Days, #14 CAP Prov:LORENZO DAVIES MD 04/08/19 Prednisone (PREDNISONE) 50 Mg Tablet, 50 MG PO QDAY for 5 Days, #5 TAB Prov:JOSSELIN KESSLER DO 03/11/19 Naproxen Sodium (ALEVE) 220 Mg Capsule, 440 MG PO TID, #30 CAPSULE Prov:JOSSELIN KESSLER DO 05/20/18 Ondansetron (ZOFRAN ODT) 4 Mg Tab.rapdis, 4 MG PO Q6H PRN for NAUSEA/VOMITING, #20 TAB 0 Refills Prov:SOHA BRAXTON MD 09/12/16 Reported Medications Insulin Lispro 100 Un/Ml Vial (HUMALOG 100 U/ML VIAL) 100 Unit/1 Ml Vial, SQ DIRECTED, VIAL 08/29/16 Methotrexate Sodium (METHOTREXATE) 2.5 Mg Tablet, 1 TAB PO WEEKLY, #32 08/29/16 Insulin Glargine,Hum.rec.anlog ([place] Solostar) 300 Unit/1 Ml Insuln.pen, 1 UNI T SQ DIRECTED, #12 08/29/16 Tamsulosin Hcl (FLOMAX) 0.4 Mg Cap.er.24h, 0.4 MG PO QDAY, #20 TAKE WITH FOOD. 10/16/13 Lactobacillus Combination No.4 (PROBIOTIC) 1 Each Capsule, 1 EACH PO BID, CAPSULE 10/13/13 Metoclopramide Hcl (METOCLOPRAMIDE HCL) 5 Mg/5 Ml Solution, 5 MG PO QID PRN 10/13/13 Albuterol Sulfate 90 Mcg/Act (PROAIR HFA 90 MCG/ACT) 8.5 Gm Hfa.aer.ad, 2 PUFF IH Q4-6H PRN 10/13/13 Montelukast Sodium (SINGULAIR) 10 Mg Tablet, 1 TAB PO QDAY TAKE ONE TABLET BY MOUTH EVERY DAY 10/13/13 Aripiprazole (ABILIFY) 2 Mg Tablet, 2 MG PO QDAY, TAB 10/13/13 Folic Acid (FOLIC ACID) 1 Mg Tablet, 1 MG PO DAILY 07/18/13 Metformin Hcl (METFORMIN HCL ER) 500 Mg Tab.er.24, 2 TAB PO BID TAKE TWO TABLETS BY MOUTH TWICE DAILY WITH FOOD 07/18/13 Fenofibrate (FENOFIBRATE) 160 Mg Tablet, 160 MG PO QDAY 07/18/13 Clonazepam (KLONOPIN) 0.5 Mg Tablet, 0.5 MG PO BID 07/18/13 Topiramate (TOPAMAX) 200 Mg Tablet, 200 MG PO BID 07/18/13 Rosuvastatin Calcium (CRESTOR) 20 Mg Tablet, 20 MG PO HS 07/18/13 Olanzapine (OLANZAPINE) 2.5 Mg Tablet, 2.5 MG PO HS 07/18/13 Lisinopril (LISINOPRIL) 10 Mg Tablet, 10 MG PO QDAY 07/18/13 Atomoxetine Hcl (STRATTERA) 40 Mg Capsule, 40 MG PO DAILY 07/18/13 Discontinued Scripts Doxycycline Calcium (VIBRAMYCIN) 50 Mg/5 Ml Syrup, 100 MG PO BID for 7 Days, #14 TAB Prov:JOSSELIN KESSLER DO 03/11/19 Past Medical/Surgical History Past medical hx significant for migraines, angina, HTN, hypercholesterolemia, as thma, pneumonia 01/11/2018, gastroparesis, kidney stones, fracture of right hand, diabetes, bipolar disorder, anxiety, ADHD, depression Past surgical hx of lithotripsy, ortho surgery on his hand and leg, cataract surgery Hx Smoking: Yes Smoking Status: Former Smoker Exposure to Second Hand Smoke?: No Hx Substance Use Disorder: No Hx Alcohol Use: Yes Constitutional Vital Sign - Last 24 Hours 05/09/19 05/09/19 05/09/19 05/09/19 20:08 20:30 20:35 20:36 Temp 98.2 Pulse 100 88 95 Resp 20 37 7 B/P (MAP) 136/89 111/67 (82) Pulse Ox 94 94 99 93 O2 Delivery Room Air Room Air 05/09/19 05/09/19 05/09/19 05/09/19 20:36 20:45 21:00 21:05 Pulse 92 90 96 Resp 18 18 27 B/P (MAP) 115/60 (78) Pulse Ox 91 05/09/19 05/09/19 05/09/19 05/09/19 21:20 21:30 21:35 22:00 Pulse 97 95 Resp 33 21 B/P (MAP) 109/71 (84) 110/67 (81) Pulse Ox 89 89 05/09/19 05/09/19 05/09/19 05/09/19 22:05 22:18 22:20 22:25 Pulse 95 95 92 Resp 31 24 33 B/P (MAP) 117/81 (93) Pulse Ox 92 96 95 05/09/19 05/09/19 22:30 22:40 Pulse 93 Resp 14 B/P (MAP) 111/69 (83) Pulse Ox 94 Physical Exam General Appearance: The patient is alert, has no immediate need for airway protection and no current signs of toxicity. Vital signs stable, afebrile, pulse ox normal HEENT: Pupils equal and round no injection. Oropharynx without redness or exudate Respiratory: Chest is non tender, lungs are clear to auscultation. No chest wall tenderness Cardiac: regular rate and rhythm, no murmur Gastrointestinal: Abdomen is soft and non tender, no masses, bowel sounds normal. Musculoskeletal: Neck: Neck is supple and non tender. No lymphadenopathy, no JVD Extremities have full range of motion and are non tender. No edema, no calf tenderness Skin: No rashes or lesions. DIFFERENTIAL DIAGNOSIS: After history and physical exam differential diagnosis was considered for chest pain including but not limited to myocardial ischemia, pericarditis pulmonary embolus, chest wall pain, post cardiotomy syndrome, pleural inflammation and pulmonary infectious causes. Medical Decision Making Data Points Result Diagram: 05/09/19201105/09/192011 Laboratory Hematology Test 05/09/19 20:12 White Blood Count 9.6 k/uL (4.5-11.0) Red Blood Count 4.51 M/uL (4.00-5.60) Hemoglobin 12.7 g/dL (14.0-18.0) L Hematocrit 37.5 % (42.0-52.0) L Mean Corpuscular Volume 83.1 fL (80.0-96.0) Mean Corpuscular Hemoglobin 28.1 pg (26.0-33.0) Mean Corpuscular Hemoglobin Concent 33.8 g/dL (32.0-36.0) Red Cell Distribution Width 15.1 % (11.5-14.5) H Platelet Count 321 K/uL (150-450) Mean Platelet Volume 8.1 fL (7.2-11.1) Neutrophils (%) (Auto) 57.0 % (39.4-72.5) Lymphocytes (%) (Auto) 25.5 % (17.6-49.6) Monocytes (%) (Auto) 8.9 % (4.1-12.4) Eosinophils (%) (Auto) 7.6 % (0.4-6.7) H Basophils (%) (Auto) 1.0 % (0.3-1.4) Nucleated RBC Relative Count (auto) 0.0 /100WBC Neutrophils # (Auto) 5.5 K/uL (2.0-7.4) Lymphocytes # (Auto) 2.4 K/uL (1.3-3.6) Monocytes # (Auto) 0.9 K/uL (0.3-1.0) Eosinophils # (Auto) 0.7 K/uL (0.0-0.5) H Basophils # (Auto) 0.1 K/uL (0.0-0.1) Nucleated RBC Absolute Count (auto) 0.00 K/uL Erythrocyte Sedimentation Rate 15 mm/HOUR (0-20) Chemistry Test 05/09/19 20:12 Sodium Level 131 mmol/L (137-145) Potassium Level 3.9 mmol/L (3.5-5.0) Chloride Level 97 mmol/L (98-107) Carbon Dioxide Level 18 mmol/L (22-30) Blood Urea Nitrogen 10 mg/dl (9-21) Creatinine 0.90 mg/dl (0.66-1.25) Glomerular Filtration Rate Calc > 60.0 Random Glucose 110 mg/dl (75-110) Calcium Level 8.2 mg/dl (8.4-10.2) Total Bilirubin 0.3 mg/dl (0.2-1.3) Aspartate Amino Transf (AST/SGOT) 20 U/L (0-35) Alanine Aminotransferase (ALT/SGPT) 24 U/L (0-56) Alkaline Phosphatase 123 U/L (0-126) Troponin I 0.027 ng/ml B-Type Natriuretic Peptide 775 pg/ml (0-100) Total Protein 6.6 g/dl (6.3-8.2) Albumin 3.5 g/dl (3.5-5.0) Coagulation Test 05/09/19 20:12 D-Dimer Quantitative (PE/DVT) 1.78 ug/ml (0-0.50) EKG/Imaging EKG Interpretation 12 lead EK Rhythm: normal sinus rhythm with premature atrial complexes [place]: normal QRS: Anterior Q waves,? Old ST segments: normal, comparison to previous EKG dated 04/08/19 after his double bypass, no significant change Imaging X-ray: Two-view chest x-ray was obtained. I viewed the images myself on the PACS system. My interpretation of the images is: No infiltrate, no effusion, normal mediastinum. The radiologist interpretation had no clinically significant variation from this interpretation. ED Course/Re-evaluation Clinical Indication for ER IV: IV Access ED Course Patient was admitted to an examination room. H&P was done. The differential diagnosis was considered. Patient with chest pain. 6 weeks out from CABG. Patient's also short of breath. He is responds well to nebulizer treatment as shortness breath, resolved. His chest pain resolved as well. His EKG is unchanged. Decision to Disposition Date: May 09, 2019 Decision to Disposition Time: 22:43 Depart Departure Latest Vital Signs Vital Signs Date Time Temp Pulse Resp B/P (MAP) Pulse Ox O2 Delivery O2 Flow Rate FiO2 05/09/19 22:40 93 14 94 05/09/19 22:30 111/69 (83) 05/09/19 20:36 Room Air 05/09/19 20:08 98.2 Impression: Primary Impression: Asthma exacerbation Additional Impressions: Chronic CHF History of coronary artery bypass graft x 2 Condition: Improved Disposition: HOME OR SELF-CARE Referrals: SWETHA SALDIVAR DO (PCP) Patient Instructions: Asthma (ED), Heart Failure (ED) Additional Instructions: Follow-up with cardiology as planned on 05/22 or sooner if possible Problem Qualifiers Primary Impression: Asthma exacerbation Asthma severity: mild Asthma persistence: intermittent Qualified Codes: J45.21 - Mild intermittent asthma with (acute) exacerbation Additional Impressions: Chronic CHF Heart failure type: unspecified Qualified Codes: I50.9 - Heart failure, unspecified LESVIA SMITH DO May 09, 2019 20:05
[2019-05-09] MEDS ORDERED: ALBUTEROL/IPRATROPIUM 3 ML NEB NEB ONE (20:15)
[2019-05-09 20:35] LABS: PLATELET COUNT, AUTOMATED 321 K/uL (150-450)
--- NOTE | 2019-05-09 20:54 | EKG ---
FACILITY: [facility] - [place] PATIENT NAME: NANCI EDWARDS : [id number] MR: [id number] V: [id number] EXAM DATE: ORDERING PHYSICIAN: LESVIA SMITH TECHNOLOGIST: [place] Test Reason : CP Blood Pressure : / mmHG Vent. Rate : 088 BPM Atrial Rate : 088 BPM P-R Int : 140 ms QRS Dur : 076 ms QT Int : 374 ms P-R-T Axes : 049 067 083 degrees QTc Int : 452 ms Sinus rhythm with premature atrial complex. Slow R progression unchanged from previous ECG. When compared with ECG of 13-APR-2019 05:36, Premature atrial complex present. Confirmed by ALBA MOLINA ([id number]) on 05/09/2019 9:03:13 PM Referred By: Confirmed By:ALBA MOLINA
--- NOTE | 2019-05-09 21:18 | RADIOLOGY IMAGING REPORT ---
FACILITY: [facility] PATIENT NAME: Venancio Walton : 1960 MR: [id number] V: [id number] EXAM DATE: ORDERING PHYSICIAN: LESVIA SMITH TECHNOLOGIST: Location: [facility] Patient: Venancio Walton : 1960 Visit/Account:[id number] Date of Sevice: 05/09/2019 CHEST: Indication: Chest pain. Technique: Frontal and lateral views were obtained. Comparison: 04/08/2019 Skeletal and soft tissue structures: The sternal sutures are intact and unchanged. The skeletal struc tures appear unremarkable. Heart and mediastinum: Within normal limits. Lung reyes: Well-expanded. No focal parenchymal opacity is identified. There is no vascular congesti on. Pleural spaces: The previously described loculated left pleural effusion has largely resolved. There is minimal residual blunting of the posterior costophrenic angle. No acute pleural process is identif ied. Impression: No acute process. Report Dictated By: Vineet Veliz MD at 05/09/2019 9:03 PM Report E-Signed By: Vineet Veliz MD at 05/09/2019 9:11 PM [id number]
[2019-05-09] MEDS ORDERED: IOPAMIDOL 76% 100 ML INFUS BTL 100 ML ONE (21:44)
[2019-05-09] MEDS ORDERED: NS(*) 0.9% 50 ML BAG 50 ML ONE (21:44)
[2019-05-09 22:30] VITALS: BP 111/69
--- NOTE | 2019-05-09 22:31 | RADIOLOGY IMAGING REPORT ---
FACILITY: [facility] PATIENT NAME: Venancio Walton : 1960 MR: [id number] V: [id number] EXAM DATE: ORDERING PHYSICIAN: LESVIA SMITH TECHNOLOGIST: [place] [facility] [place] Patient: Venancio Walton : 1960 Visit/Account:[id number] Date of Sevice: 05/09/2019 EXAMINATION: CTA of the chest with IV contrast HISTORY: Chest tightness. Shortness of breath. Recent CABG. TECHNIQUE: Pulmonary embolus protocol - Thin axial CT images of the chest were obtained with IV con trast during maximal pulmonary arterial opacification. Reconstruction of the source data includes mul tiplanar 2D coronal and sagittal reconstructed images, and 3D coronal and sagittal MIP images. Repres entative images have been stored on PACS. One of the following dose optimization techniques was utilized in the performance of this exam: Autom ated exposure control; adjustment of the mA and/or kV according to the patient's size; or use of an i terative reconstruction technique. Specific details can be referenced in the facility's radiology C T exam operational policy. Contrast: 75 mL of IV [id number]. COMPARISON: 04/13/2019. FINDINGS: Pulmonary arteries: The pulmonary arteries are well opacified, without suspicious filling defect. Heart, aorta, and great vessels: Normal caliber thoracic aorta. Sternotomy with surgical changes of CABG. Dense calcification along the [place] coronary arteries. Normal heart size. No pericardial effus ion. Lungs and pleura: Small left pleural effusion, decreased in volume from the prior CT, with slight lo culation posteriorly. Mild scarring or atelectasis in the lower left lung. No suspicious focal consol idation. No right-sided pleural effusion. No pneumothorax. The central airways are patent. Mediastinum and mahamed: Negative. Visualized upper abdomen: Unremarkable. Chest wall: Negative. Bones: No acute osseous findings. Scattered degenerative changes along the thoracic spine. Partially visualized old proximal left humerus fracture. IMPRESSION: 1. No evidence of pulmonary embolism. 2. No other acute findings in the chest. 3. Residual small left pleural effusion, decreased from the prior exam, with mild scarring or atelect asis at the left base. 4. Sternotomy with surgical changes of CABG. Report Dictated By: Alexys Boswell MD at 05/09/2019 10:18 PM Report E-Signed By: Alexys Boswell MD at 05/09/2019 10:23 PM [id number]
== END 2019-05-09 22:50 | disposition home or self-care (01) ==
LOC: ER 20:17
DX: J45.21 Mild intermittent asthma with (acute) exacerbation (principal); I50.9 Heart failure, unspecified
CPT/HCPCS: 71046; 71275; 83880; 84484; 85025; 85379; 85651; 93005; 94640; 99284; J7050; J7620; Q9967; 82040; 82247; 82310; 82374; 82435; 82565; 82947; 84075; 84132; 84155; 84295; 84450; 84460; 84520